=== PATIENT | male | born 1970 | race Hispanic/Latino ===

== ENCOUNTER 2016-10-23 14:50 | Inpatient (IN) | payer MEDICARE, OTHER ==
[2016-10-23] MEDS ORDERED: MORPHINE IV PRN ×2 (14:57)
[2016-10-23] MEDS ORDERED: ZOFRAN IV PRN (14:57)
[2016-10-23] MEDS ORDERED: TYLENOL PO PRN (14:57)
[2016-10-23] MEDS ORDERED: NARCAN 0.4 MG/1 ML IV PRN (14:57)
[2016-10-23 20:52] LABS: Basophils % (Auto) 0.8 % (0.0-1.8); Eosinophils % (Auto) 7.9 % (0.0-4.3); Hematocrit 32.8 % (35.5-45.6); Hemoglobin 10.8 gm/dl (11.8-15.2); Mean Corpuscular HGB Conc 33 % (32-34); Mean Corpuscular Hemoglobin 32 pg (28-32); Mean Corpuscular Volume 97 fl (84-94); Platelet Count 379 K/mm3 (140-440); Red Blood Count 3.38 M/mm3 (3.65-5.03); Red Cell Distribution Width 16.3 % (13.2-15.2); White Blood Count 9.3 K/mm3 (4.5-11.0)
[2016-10-23 21:03] LABS: INR 1.18 (0.87-1.13)
[2016-10-23 21:04] LABS: Partial Thromboplastin Time 41.2 Sec. (24.2-36.6)
[2016-10-23 21:12] LABS: BUN/Creatinine Ratio 5.41; Calcium 9.7 mg/dL (8.4-10.2); Chloride 93.7 mmol/L (98-107)
[2016-10-23] MEDS ORDERED: DILAUDID IV ONE (23:52)
[2016-10-24] MEDS: DESYREL PO SCH ×2 (00:14→21:22)
[2016-10-24] MEDS: AMBIEN PO PRN (00:14)
[2016-10-24] MEDS: FLEXERIL PO SCH ×2 (00:14→21:21)
--- NOTE | 2016-10-24 09:07 | Admit Criteria Form ---
Admission Criteria Documentation: INFECTION, THROMBOSIS, OR OTHER COMPLICATION OF INTRAVENOUS DEVICE Clinical Indications for Admission to Inpatient Care (Place 'X' for any and all applicable criteria): Admission is indicated for ANY ONE of the following (1)(2): [X ]I. Catheter-related bloodstream infection and ANY ONE of the following (3 )(4): [ ]a) Hemodynamic instability [ X]b) Metastatic infection requiring inpatient care (eg, endocarditis , septic emboli)(5) [ ]c) Patient has constitutional symptoms (eg, fever, chills), is immunocompromised, or is at increased risk for severe infection as indicated by ANY ONE of the following: [ ]i) Chronic use of immunosuppressive medication [ ]ii) Asplenic [ ]iii) Bone marrow disease [ ]iv) Extremities of age (eg, frail elderly, ) [ ]v) Severe comorbidity (eg, poorly controlled diabetes, metastatic malignancy, symptomatic heart failure) [ ]vi) Other indicator of immunocompromise [ ]d) Appropriate care cannot be provided in home or outpatient setting. [ ]II. Catheter-related thrombosis requiring systemic anticoagulation that cannot be managed on an outpatient basis(6) [ X]III. Catheter-related complication that cannot be managed on outpatient basis as indicated by ANY ONE of the following (7)(8)(9)(10): [ ]a) Thrombotic or air embolization from catheter [ ]b) Catheter fracture [ ]c) Cardiac arrhythmia due to catheter (eg, catheter tip misplacement) [ ]d) Cardiac tamponade [ ]e) Hemothorax (eg, from vascular injury) [ ]f) Tension pneumothorax [ ]g) Vascular injury from puncture requiring acute surgical or endovascular repair Extended stay beyond goal length of stay may be needed for(2): [ ]a) Persistent Hemodynamic instability [ ]b) Endocarditis [ ]c) Continued fever or bacteremia [ ]d) End-stage renal disease [ ]e) Inability to provide needed care in home environment [ ]f) Inpatient anticoagulation The original [facility] content created by Negrita Camarillo has been revised. The portions of the content which have been revised are identified through the use of italic text or in bold, and Negrita Camarillo has neither reviewed nor approved the modified material. All other unmodified content is copyright [facility] [employer]. Please see references footnoted in the original [facility] edition 2016 Admission Criteria Met: Yes
--- NOTE | 2016-10-24 09:47 | Consultation ---
History of Present Illness - History of Present Illness thank you for the consultation Patient was evaluated today Assessment and plan End-stage renal disease currently in maintenance hemodialysis; patient will receive his hemodialysis today after the procedure used a new catheter that has been placed at [facility] Patient is currently doing much better in terms of his diet and fluid restriction Noted to have bacteremia at [facility] catheter was already exchanged, he will need to be seen and followed by infectious disease as he was on ampicillin as well as gentamicin, 2 g twice a day as well as 1 mg per KG body weight after every dialysis Anemia and end-stage renal disease currently on maintenance hemodialysis Secondary hyperparathyroidism to follow, he is currently status post parathyroidectomy remotely Morbid obesityhistory I'm to do better Difficult vascular access currently clotted AV graft We'll continue to follow and make recommendation from renal standpoint history of present illness: Patient is a 45-year-old male who has known history of polycystic kidney disease for which she underwent bilateral nephrectomy currently on renal replacement therapy to his right upper chest permacath which was recently replaced at [facility] by Dr. Maldonado. Patient has also been noted to have enterococcal faecalis bacteremia. patient has a transfer dysphagia of echocardiogram which showed thrombosis in his right atrium. I did discuss the case today with Dr. Gunderson, and patient has been transferred here due to some suspicion of adherent clot at the tip of the catheter/hero graft. Patient has been placed on ampicillin 2 g twice a day as well as gentamicin 1 mg /kg body weight after each dialysis treatment discussed with Dr. perez. Patient stated overall he is feeling well and is due for dialysis. He has been watching his fluid very closely. He was admitted to [facility] with acute onset of fever and chills that started the day before his admission. At that time his permacath was nearly 2 week old which was replaced at [facility] patient currently has permacath and also MediPort. Past medical history is significant for end-stage renal disease currently on maintenance hemodialysis Chronic low-grade hypotension Secondary hyperparathyroidism status post parathyroidectomy Anemia and end-stage renal disease Chronic neuropathy Arthritis Limited vascular access allergies Keppra nalbuphine Home medication present medication: Reviewed Social history: Patient has no recent history of alcohol or tobacco use Family history:Positive for polycystic kidney disease Review of system: Positive for fever chills prior to admission permacath has been exchange patient has been noted to have enterococcal bacteremia for which she was under care of infectious disease at [facility] Complete review of the systems are pinpoint but is manageable of the review of system negative Labs and imaging all reviewed from this admission Medications and Allergies Allergies Allergy/AdvReac Type Severity Reaction Status Date / Time levetiracetam [From Keppra] Allergy Hives Verified 05/03/15 10:34 nalbuphine HCl [From Nubain] AdvReac Unknown Verified 05/03/15 10:34 Home Medications Medication Instructions Recorded Confirmed Last Taken Type oxyCODONE ER [OxyCONTIN ER TAB] 20 mg PO BID 05/03/15 09/14/16 09/20/16 22:00 History Cyclobenzaprine HCl [Flexeril] 10 mg PO QHS 06/08/15 09/14/16 09/20/16 22:00 History Calcitriol [Rocaltrol] 0.25 mcg PO QDAY #30 capsule 09/29/15 09/14/16 09/20/16 22:00 Rx Gemfibrozil [Lopid] 600 mg PO BID #60 tablet 09/29/15 09/14/16 09/20/16 22:00 Rx Gabapentin [Neurontin] 100 mg PO TID 08/16/16 09/14/16 09/20/16 22:00 History Sodium Bicarbonate 650 mg PO BID 08/22/16 09/21/16 09/20/16 09:00 History diphenhydrAMINE [Benadryl CAP] 25 mg PO BID 08/22/16 09/14/16 09/20/16 22:00 History Clopidogrel Bisulfate [Plavix] 75 mg PO DAILY 08/23/16 09/14/16 08/22/16 History Zolpidem [Ambien] 5 mg PO QHS 08/23/16 09/14/16 09/20/16 22:00 History traZODone [Desyrel] 50 mg PO QHS 08/23/16 09/14/16 09/20/16 22:00 History Pantoprazole [Protonix] 40 mg PO QDAY 09/14/16 09/14/16 09/20/16 22:00 History Pramipexole [Mirapex] 0.5 mg PO QHS 09/14/16 09/14/16 09/20/16 22:00 History oxyCODONE /ACETAMINOPHEN [Percocet 1 tab PO Q4HR #60 tab 09/23/16 Unknown Rx 5/325] Active Meds: Active Medications Acetaminophen (Tylenol) 650 mg PO Q4H PRN PRN Reason: Pain MILD(1-3)/Fever >100.5/SEPULVEDA Acetaminophen/Hydrocodone Bitart ([place] 5/325) 2 each PO Q6H PRN PRN Reason: Pain, Moderate (4-6) Cyclobenzaprine HCl (Flexeril) 10 mg PO QHS [facility] Last Admin: 10/24/16 00:14 Dose: 10 mg Morphine Sulfate (Morphine) 2 mg IV Q4H PRN PRN Reason: Pain, Moderate (4-6) Morphine Sulfate (Morphine) 4 mg IV Q4H PRN PRN Reason: Pain , Severe (7-10) Naloxone HCl (Narcan 0.4 Mg/1 Ml) 0.1 mg IV Q2MIN PRN PRN Reason: Res Rate </= 8 or 02 SAT < 92% Ondansetron HCl (Zofran) 4 mg IV Q8H PRN PRN Reason: N/V unrelieved by Reglan Trazodone HCl (Desyrel) 50 mg PO QHS [facility] Last Admin: 10/24/16 00:14 Dose: 50 mg Zolpidem Tartrate (Ambien) 5 mg PO QHS PRN PRN Reason: Sleep Last Admin: 10/24/16 00:14 Dose: 5 mg Exam - Vital Signs Vital signs: Vital Signs Temp Pulse Resp BP Pulse Ox 97.9 F 92 H 18 108/64 94 10/23/16 22:00 10/23/16 22:00 10/23/16 22:00 10/23/16 22:00 10/23/16 22:00 - General Appearance General appearance: appears stated age (no acute distress appears depressed) EENT: mucous membranes moist Neck: Present: neck supple Respiratory: Clear to Ascultation (permacath site is clear,MediPort site is clear) Heart: regular (regular rate and rhythm S1-S2 heard no S3-S4) Gastrointestinal: Present: normal (soft nontender obese abdomen) Integumentary: no rash Neurologic: no focal deficit (alert awake oriented4 chronic neuropathy both lower extremity) Psychiatric: depressed (patient appears tearful due to chronic illness denies chronic depression) Results - Lab Results 10/23/16 20:30 10/23/16 20:30 Most recent lab results Calcium 9.7 mg/dL (8.4-10.2) 10/23/16 20:30 Phosphorus 7.0 mg/dL (2.5-4.5) H 10/23/16 20:30
[2016-10-24] MEDS ORDERED: ANCEF/STERILE WATER 2 GM/20 ML IV NR (11:00)
[2016-10-24] MEDS ORDERED: NACL 0.9% 50 ML ONE (11:58)
[2016-10-24] MEDS ORDERED: HEPARIN/NS 5000 UNIT/500ML(CATH LAB) 1,000 ML IR ONE (11:59)
[2016-10-24] MEDS ORDERED: ANCEF/STERILE WATER 2 GM/20 ML 20 ML IV ONE (12:00)
[2016-10-24] MEDS ORDERED: CATHFLO ONE (12:01)
[2016-10-24] MEDS ORDERED: NACL 0.9% 250ML 250 ML ONE (12:02)
[2016-10-24] MEDS ORDERED: WATER FOR INJ (PF) 10 ML ONE (12:09)
[2016-10-24] MEDS: SUBLIMAZE ONE ×4 (12:24→13:14)
[2016-10-24] MEDS: VERSED ONE ×4 (12:24→13:48)
[2016-10-24] MEDS: HEPARIN 10,000 UNITS/10 ML ONE ×4 (12:25→15:06)
[2016-10-24] MEDS: XYLOCAINE 1%/ EPI 1:100,000 INFILTRATI ONE ×2 (12:25→12:30)
[2016-10-24] MEDS ORDERED: HEPARIN/NS 5000 UNIT/500ML(CATH LAB) 500 ML IR ONE (12:46)
[2016-10-24] MEDS ORDERED: ZOFRAN ONE (13:02)
[2016-10-24] MEDS ORDERED: LOPRESSOR IV ONE (13:05)
[2016-10-24] MEDS ORDERED: NACL 0.9% 500 ML 500 ML ONE (13:09)
--- NOTE | 2016-10-24 14:35 | Operative Report ---
Operative Report Operative Report: Date of procedure: 10/24/2016 Pre-operative diagnosis: Thrombosed left upper extremity HERO graft Post-operative diagnosis: The same Procedure name(s): 1. Placement of the arterial sheath under ultrasound guidance. 2. Placement of venous sheath under ultrasound guidance. 3. Fistulogram. 4. Left upper extremity arteriogram. 5. Infusion of tPA via power pulse. 6. Percutaneous mechanical thrombectomy using a 6 [place] AngioJet catheter. 7. [id number]-[id number] Anthony thrombectomy of the anastomosis. 8. Balloon angioplasty of the graft and the outflow component using 6 x 1 20 balloon. 9. Balloon angioplasty of the arterial anastomosis using 5 x 40 angioplasty balloon. 10. Radiologic supervision and interpretation. Surgeon: Cale Blankenship MD, RPVI Paint Formulator: None Anesthesia: Local with IV sedation. Findings 1. Thrombosed HERO left arm dialysis catheter. 2. No significant stenosis noted in the proximal and distal brachial artery or axillary artery. 3. Complete resolution of thrombosis of the graft was excellent brisk flow. Specimens: None EBL: Minimal IV fluids: KVO Urine output: None Disposition: The recovery Indications: Thrombosed left upper extremity HERO AV graft Procedure: Patient was brought to the [facility] and laid on the table in supine position. After adequate sedation was achieved patient was prepped and draped in usual sterile fashion. An area over the graft close to the arterial anastomosis was infiltrated with local lidocaine. Under ultrasound guidance the needle was inserted into the graft and a micropuncture wire was advanced into the graft with no resistance. The micropuncture sheath was placed toward the outflow component. The Ibarra wire was advanced through the micropuncture sheath and out of the outflow component. The micropuncture sheath was exchanged to a short bright tip 6 [place] sheath. The area was chosen near the outflow component and infiltrated was local lidocaine. A micropuncture needle under ultrasound guidance was inserted into the catheter toward the arterial anastomosis. The wire was advanced into the graft without resistance under fluoroscopic guidance. The micropuncture sheath was placed. Wire was exchanged to a Ibarra wire and the 6 [place] short bright tip sheath was placed toward the arterial anastomosis. The rim catheter was advanced toward the arterial anastomosis and directed toward the proximal brachial artery. The Glidewire was advanced into the proximal brachial artery and up to the axillary artery. The catheter was exchanged to a angled vertebral catheter and it was advanced up into the axillary artery. The arteriogram of the left arm showed no evidence of inflow stenosis. The entire graft then was laced with tPA using an AngioJet catheter starting from the venous sheath all way to the tip of the outflow component and then from the arterial sheath down into the arterial anastomosis. After 20 minutes the AngioJet thrombectomy was performed of the entire graft. The [id number] Anthony catheter was advanced over Ibarra wire through the arterial anastomosis and the arterial plug was withdrawn into the graft past the venous sheath. The gjzo-pky-[id number] Anthony with then was advanced through the venous sheath and pushed the arterial plug out through the outflow component. The fistulogram was performed and there was some residual clot remaining at the entrance of the arterial sheath. This was probably due to partial clot that not clear because of the sheath. The entire graft was then ballooned using a 6 x 1 20 balloon and the arterial anastomosis was ballooned using 5 x 40 balloon. It appeared there was some clot just distal to the tip of the outflow component which was successfully resolved using a 10 x 40 balloon just distal to the outflow component. The fistulogram once again showed to the graft was completely clear except for the area where the arterial sheath entered the graft. The arterial sheath was removed and the sites sutured using 4-0 Vicryl. There was no bleeding. The graft was once again ballooned using 6 x 1 20 balloon at that site. And the follow-up angiogram showed no evidence of residual clot, brisk flow all the way down and out of the outflow component and no evidence of contrast extravasation. At that point the whole graft was completely cleared and the venous sheath was removed and the site closed using 3-0 Vicryl stitch. Patient tolerated procedure well.
--- NOTE | 2016-10-24 15:15 | Vascular Lab Report ---
MISCELLANEOUS VESSEL IDENTIFICATION: The arteriovenous access was identified in the left upper extremity and under real-time ultrasound guidance was cannulated. IMPRESSION: Successful ultrasound guided cannulation of the arteriovenous access site.
[2016-10-24] MEDS: DILAUDID IV PRN ×2 (15:20→22:49)
[2016-10-24] MEDS ORDERED: NACL 0.9% 1000 ML 100 ML IV PRN ×2 (15:28→19:29)
--- NOTE | 2016-10-24 15:36 | Consultation ---
History of Present Illness - Reason for Consult Consult date: 10/24/16 mrsa bacteremia Requesting physician: NUVIA BLANKENSHIP - History of Present Illness This is a 45 year old man with polycystic kidney disease, ESRD on hemodialysis x 13 years, T12 fracture and L5-S1 disc bulging. Left arm HERO graft placed 3 weeks ago. Patient said he was doing well until the night of October 15 when he started to feel weak, tired with associated nausea and vomiting. He took his temperature that was 99.6. He went to bed and woke up at 12:45 AM with shaking chills, cold, chattering teeth with a temp of 100.5. He called 911 and was brought to [facility]. On arrival to the ER at [facility] on 10/15/16 he had blood cultures and initiated on vancomycin, levaquin and zosyn in the ER. WBC was 20.1. Blood cultures came back with Enterococcus faecalis, patient was seen by ID, Dr. Gunderson. Vancomycin was continued awaiting final culture results. He was then switched to ampicillin 2gm iv Q12H on 10/17/16. Blood cultures were positive on . Echocardiogram was done on 10/19/16, technically difficult leading to a ARLENE. The right chest wall permacath was considered as the source of the bacteremia, it was then changed over guide wire on 10/21/16. ARLENE was done on 10/23/16 with a large mobile mass noted in the superior aspect of the atrium close to the septum. Patient was transferred to [facility]. Dr. Blankenship performed a fistulogram, infusion of tPA, percutaneous mechanical thrombectomy, balloon angioplasty of the graft and out flow component. Past History Past Medical History: ESRD, hypertension, other (polycystic kidney disease) Past Surgical History: Other (cervical spine hardware, neurostimulator device) Social history: . denies: smoking, alcohol abuse Medications and Allergies Allergies Allergy/AdvReac Type Severity Reaction Status Date / Time levetiracetam [From Keppra] Allergy Hives Verified 05/03/15 10:34 nalbuphine HCl [From Nubain] AdvReac Unknown Verified 05/03/15 10:34 Home Medications Medication Instructions Recorded Confirmed Last Taken Type oxyCODONE ER [OxyCONTIN ER TAB] 20 mg PO BID 07/09/14/16 09/20/16 22:00 History Cyclobenzaprine HCl [Flexeril] 10 mg PO QHS 06/08/15 09/14/16 09/20/16 22:00 History Calcitriol [Rocaltrol] 0.25 mcg PO QDAY #30 capsule 09/29/15 09/14/16 09/20/16 22:00 Rx Gemfibrozil [Lopid] 600 mg PO BID #60 tablet 09/29/15 09/14/16 09/20/16 22:00 Rx Gabapentin [Neurontin] 100 mg PO TID 08/16/16 09/14/16 09/20/16 22:00 History Sodium Bicarbonate 650 mg PO BID 08/22/16 09/21/16 09/20/16 09:00 History diphenhydrAMINE [Benadryl CAP] 25 mg PO BID 08/22/16 09/14/16 09/20/16 22:00 History Clopidogrel Bisulfate [Plavix] 75 mg PO DAILY 08/23/16 09/14/16 08/22/16 History Zolpidem [Ambien] 5 mg PO QHS 08/23/16 09/14/16 09/20/16 22:00 History traZODone [Desyrel] 50 mg PO QHS 08/23/16 09/14/16 09/20/16 22:00 History Pantoprazole [Protonix] 40 mg PO QDAY 09/14/16 09/14/16 09/20/16 22:00 History Pramipexole [Mirapex] 0.5 mg PO QHS 09/14/16 09/14/16 09/20/16 22:00 History oxyCODONE /ACETAMINOPHEN [Percocet 1 tab PO Q4HR #60 tab 09/23/16 Unknown Rx 5/325] Active Meds: Active Medications Acetaminophen (Tylenol) 650 mg PO Q4H PRN PRN Reason: Pain MILD(1-3)/Fever >100.5/SEPULVEDA Acetaminophen/Hydrocodone Bitart ([place] 5/325) 2 each PO Q6H PRN PRN Reason: Pain, Moderate (4-6) Cefazolin Sodium (Ancef/Sterile Water 2 Gm/20 Ml) 2 gm IV PREOP NR Stop: 10/24/16 23:59 Cyclobenzaprine HCl (Flexeril) 10 mg PO QHS [facility] Last Admin: 10/24/16 00:14 Dose: 10 mg Hydromorphone HCl (Dilaudid) 2 mg IV Q6HR PRN PRN Reason: Pain , Severe (7-10) Last Admin: 10/24/16 15:20 Dose: 2 mg Sodium Chloride (Nacl 0.9% 1000 Ml) 100 mls @ 999 mls/hr IV JOSE PRN PRN Reason: Hypotension Naloxone HCl (Narcan 0.4 Mg/1 Ml) 0.1 mg IV Q2MIN PRN PRN Reason: Res Rate </= 8 or 02 SAT < 92% Ondansetron HCl (Zofran) 4 mg IV Q8H PRN PRN Reason: N/V unrelieved by Reglan Trazodone HCl (Desyrel) 50 mg PO QHS [facility] Last Admin: 10/24/16 00:14 Dose: 50 mg Zolpidem Tartrate (Ambien) 5 mg PO QHS PRN PRN Reason: Sleep Last Admin: 10/24/16 00:14 Dose: 5 mg Review of Systems Constitutional: no weight loss, no fever, no chills, no sweats, no fatigue, no weakness Ears, nose, mouth and throat: no ear pain, no ear discharge, no nose pain, no nasal congestion, no dysphagia, no hoarseness Cardiovascular: no orthopnea, no palpitations, no shortness of breath, no dyspnea on exertion Respiratory: no excessive sputum, no wheezing, no pleurisy Gastrointestinal: no nausea, no vomiting, no diarrhea, no melena Genitourinary Male: no hematuria, no flank pain, no discharge, no genital pain Rectal: no incontinence, no hemorrhoids Musculoskeletal: no neck pain, no shooting arm pain, no low back pain, no morning stiffness Integumentary: no rash, no pruritis, no bullae, no lesions Neurological: no weakness, no parathesias, no numbness, no migraines, no convulsions Psychiatric: no change in sleep habits, no sleep disturbances, no insomnia, no disorientation, no hallucinations Endocrine: no heat intolerance, no polyphagia, no excessive thirst, no weight change Physical Examination - Constitutional Vitals: Selected Entries 10/24/16 07:47 Temperature 97.6 F Pulse Rate [ 87 Left Radial] Respiratory 16 Rate O2 Sat by Pulse 98 Oximetry Blood Pressure 95/56 [Left Thigh] Blood Pressure 69 Mean [Left Thigh] General appearance: Present: no acute distress, well-nourished, obese - EENT Eyes: Present: PERRL, EOM intact. Absent: scleral icterus, conjunctival injection ENT: hearing intact, clear oral mucosa, dentition normal, no oropharyngeal erythema - Neck Neck: Present: supple, normal ROM. Absent: enlarged thyroid, masses or JVD - Respiratory Respiratory: bilateral: CTA - Cardiovascular Rhythm: regular Heart Sounds: Present: S1 & S2 - Extremities Extremities: no ischemia, pulses intact, normal temperature - Abdominal General gastrointestinal: Present: soft, non-tender, normal bowel sounds Male genitourinary: Present: deferred - Rectal Rectal Exam: deferred - Integumentary Integumentary: Present: clear, warm, dry. Absent: jaundice, rash - Musculoskeletal Musculoskeletal: strength equal bilaterally - Psychiatric Psychiatric: appropriate mood/affect, cooperative Results - Labs CBC & Chem 7: 10/23/16 20:30 10/23/16 20:30 Labs: Laboratory Tests 10/23/16 10/23/16 10/23/16 20:30 20:30 20:30 WBC 9.3 Plt Count 379 INR 1.18 H APTT 41.2 H BUN 52 H Creatinine 9.6 H Assessment and Plan Antibiotics: 1) cefazolin preop 10/24 This is a 45 year old man with ESRD (polycystic kidney disease), left arm HERO graft placed 2 weeks ago, left chest wall power port, and right chest wall permacath. He presented to [facility] on 10/15/16 with shaking chills and fevers and found to have Enterococcus faecalis bacteremia with positive blood cultures on 10/15, 10/16 and 10/17. Blood cultures on 10/18, 10/19 negative. ARLENE with mobile mass in the right atrium thought to be related to catheter. He did have the right chest wall permacath changed over a guide wire on 10/21/16. Patient was transferred to have the HERO cath declotted, he underwent angioplasty and thrombectomy by Dr. Blankenship on 10/24/16. 1) High grade Enterococcus faecalis bacteremia that is thought to be related to an infected permacath that was exchanged on 10/21/16. Concerned about the mobile density revealed by ARLENE that was thought to be related to the cathete 2) leukocytosis, resolved initially 20.1 3) history of Enterococcus bacteremia in 05/2015 treated with 4 weeks of iv ampicillin 4) History of MRSA colonization Plan: 1) continue ampicillin as previously prescribed at [facility] 2) repeat blood culture 3) will need to see blood culture results to confirm sensitivities 4) will repeat ARLENE to evaluate the mobile right atrium density 5) would treat as endovascualar infection in view of cervical spine hardware and the HERO graft in place.
--- NOTE | 2016-10-24 18:28 | Consultation ---
History of Present Illness - Reason for Consult Consult date: 10/24/16 Requesting physician: NUVIA HERRING - History of Present Illness Mr. Bailey is a 45 yo M who was admitted to the vascular team Thrombosed HERO left arm dialysis catheter. He had vascular procedure this morning for thrombosed HERO dialysis catheter; he was transferred from [place] for further treatment of thrombosis; he as admiited to [place] On 10/15/16 he had blood cultures and initiated on vancomycin, levaquin and zosyn in the ER. WBC was 20.1. Blood cultures came back with Enterococcus faecalis, patient was seen by ID, Dr. Gunderson. Vancomycin was continued awaiting final culture results. He was then switched to ampicillin 2gm iv Q12H on 10/17/16. Blood cultures were positive on . Echocardiogram was done on 10/19/16, technically difficult leading to a ARLENE. The right chest wall permacath was considered as the source of the bacteremia, it was then changed over guide wire on 10/21/16. ARLENE was done on 10/23/16 with a large mobile mass noted in the superior aspect of the atrium close to the septum. At the time of evaluation he had no complaints Past History Past Medical History: ESRD, hypertension, other (polycystic kidney disease) Past Surgical History: Other (cervical spine hardware, neurostimulator device) Social history: . denies: smoking, alcohol abuse Medications and Allergies Allergies Allergy/AdvReac Type Severity Reaction Status Date / Time levetiracetam [From Keppra] Allergy Hives Verified 05/03/15 10:34 nalbuphine HCl [From Nubain] AdvReac Unknown Verified 05/03/15 10:34 Home Medications Medication Instructions Recorded Confirmed Last Taken Type oxyCODONE ER [OxyCONTIN ER TAB] 20 mg PO BID 05/03/15 09/14/16 09/20/16 22:00 History Cyclobenzaprine HCl [Flexeril] 10 mg PO QHS 06/08/15 09/14/16 09/20/16 22:00 History Calcitriol [Rocaltrol] 0.25 mcg PO QDAY #30 capsule 09/29/15 09/14/16 09/20/16 22:00 Rx Gemfibrozil [Lopid] 600 mg PO BID #60 tablet 09/29/15 09/14/16 09/20/16 22:00 Rx Gabapentin [Neurontin] 100 mg PO TID 08/16/16 09/14/16 09/20/16 22:00 History Sodium Bicarbonate 650 mg PO BID 08/22/16 09/21/16 09/20/16 09:00 History diphenhydrAMINE [Benadryl CAP] 25 mg PO BID 08/22/16 09/14/16 09/20/16 22:00 History Clopidogrel Bisulfate [Plavix] 75 mg PO DAILY 08/23/16 09/14/16 08/22/16 History Zolpidem [Ambien] 5 mg PO QHS 08/23/16 09/14/16 09/20/16 22:00 History traZODone [Desyrel] 50 mg PO QHS 08/23/16 09/14/16 09/20/16 22:00 History Pantoprazole [Protonix] 40 mg PO QDAY 09/14/16 09/14/16 09/20/16 22:00 History Pramipexole [Mirapex] 0.5 mg PO QHS 09/14/16 09/14/16 09/20/16 22:00 History oxyCODONE /ACETAMINOPHEN [Percocet 1 tab PO Q4HR #60 tab 09/23/16 Unknown Rx 5/325] Active Meds: Active Medications Acetaminophen (Tylenol) 650 mg PO Q4H PRN PRN Reason: Pain MILD(1-3)/Fever >100.5/SEPULVEDA Acetaminophen/Hydrocodone Bitart ([place] 5/325) 2 each PO Q6H PRN PRN Reason: Pain, Moderate (4-6) Cefazolin Sodium (Ancef/Sterile Water 2 Gm/20 Ml) 2 gm IV PREOP NR Stop: 10/24/16 23:59 Cyclobenzaprine HCl (Flexeril) 10 mg PO QHS [facility] Last Admin: 10/24/16 00:14 Dose: 10 mg Hydromorphone HCl (Dilaudid) 2 mg IV Q6HR PRN PRN Reason: Pain , Severe (7-10) Last Admin: 10/24/16 15:20 Dose: 2 mg Sodium Chloride (Nacl 0.9% 1000 Ml) 100 mls @ 999 mls/hr IV JOSE PRN PRN Reason: Hypotension Ampicillin Sodium (Polycillin/Ns 2 Gm/100 Ml) 100 mls @ 100 mls/hr IV Q12H [facility] Stop: 10/28/16 06:59 Naloxone HCl (Narcan 0.4 Mg/1 Ml) 0.1 mg IV Q2MIN PRN PRN Reason: Res Rate </= 8 or 02 SAT < 92% Ondansetron HCl (Zofran) 4 mg IV Q8H PRN PRN Reason: N/V unrelieved by Reglan Trazodone HCl (Desyrel) 50 mg PO QHS [facility] Last Admin: 10/24/16 00:14 Dose: 50 mg Zolpidem Tartrate (Ambien) 5 mg PO QHS PRN PRN Reason: Sleep Last Admin: 10/24/16 00:14 Dose: 5 mg Review of Systems All systems: negative Constitutional: no weight loss, no weight gain, no fever Ears, nose, mouth and throat: no ear pain, no ear discharge, no tinnitis, no decreased hearing Cardiovascular: no chest pain, no orthopnea, no palpitations, no rapid/ irregular heart beat Respiratory: no cough, no cough with sputum, no excessive sputum, no hemoptysis , no shortness of breath Gastrointestinal: no nausea, no vomiting, no diarrhea, no constipation Genitourinary Male: no dysuria, no hematuria, no flank pain Rectal: no pain, no incontinence Musculoskeletal: no neck stiffness, no neck pain, no shooting arm pain Integumentary: no rash, no pruritis, no redness, no sores, no wounds Neurological: no head injury, no transient paralysis, no paralysis, no weakness Psychiatric: no anxiety, no memory loss, no change in sleep habits, no sleep disturbances Endocrine: no cold intolerance, no heat intolerance, no polyphagia, no excessive thirst Hematologic/Lymphatic: no easy bruising, no easy bleeding Allergic/Immunologic: no urticaria, no allergic rhinitis Exam - Constitutional Vitals: Temp Pulse Resp BP Pulse Ox 97.8 F 92 H 20 118/51 98 10/24/16 16:30 10/24/16 17:45 10/24/16 16:30 10/24/16 17:45 10/24/16 15:05 General appearance: Present: no acute distress, obese - EENT Eyes: Present: PERRL, EOM intact. Absent: scleral icterus, conjunctival injection ENT: hearing intact, clear oral mucosa, no oropharyngeal erythema, no poor dentition - Neck Neck: Present: supple, normal ROM. Absent: enlarged thyroid, masses or JVD - Respiratory Respiratory effort: normal Respiratory: negative: diminished, rales, rhonchi, wheezing - Cardiovascular Rhythm: regular Heart Sounds: Present: S1 & S2. Absent: gallop - Extremities Extremities: no ischemia, pulses intact, pulses symmetrical, No edema Peripheral Pulses: within normal limits - Abdominal General gastrointestinal: Present: soft, non-tender, non-distended, normal bowel sounds Male genitourinary: Present: deferred - Rectal Rectal Exam: deferred - Integumentary Integumentary: Present: clear - Musculoskeletal Musculoskeletal: generalized weakness - Psychiatric Psychiatric: appropriate mood/affect, intact judgment & insight, cooperative - Neurologic Neurologic: CNII-XII intact, moves all extremities Results - Labs CBC & Chem 7: 10/23/16 20:30 10/23/16 20:30 Labs: Abnormal lab results 10/23/16 10/23/16 10/23/16 Range/Units 20:30 20:30 20:30 RBC 3.38 L (3.65-5.03) M/mm3 Hgb 10.8 L (11.8-15.2) gm/dl Hct 32.8 L (35.5-45.6) % MCV 97 H (84-94) fl RDW 16.3 H (13.2-15.2) % Eos % (Auto) 7.9 H (0.0-4.3) % Eos # 0.7 H (0.0-0.4) K/mm3 Seg Neutrophils % 71.3 H (40.0-70.0) % INR 1.18 H (0.87-1.13) APTT 41.2 H (24.2-36.6) Sec. Chloride 93.7 L (98-107) mmol/L BUN 52 H (9-20) mg/dL Creatinine 9.6 H (0.8-1.5) mg/dL Phosphorus (2.5-4.5) mg/dL 10/23/16 Range/Units 20:30 RBC (3.65-5.03) M/mm3 Hgb (11.8-15.2) gm/dl Hct (35.5-45.6) % MCV (84-94) fl RDW (13.2-15.2) % Eos % (Auto) (0.0-4.3) % Eos # (0.0-0.4) K/mm3 Seg Neutrophils % (40.0-70.0) % INR (0.87-1.13) APTT (24.2-36.6) Sec. Chloride (98-107) mmol/L BUN (9-20) mg/dL Creatinine (0.8-1.5) mg/dL Phosphorus 7.0 H (2.5-4.5) mg/dL Assessment and Plan 1. Polycytic Kidney with ESRD - had HD today; manx as per renal 2. THromboses hero catheter- Manx as per primary team 3. Recent bactremia and endocarditis- manx as per ID 4. Anemia due to CKD- manx as per renal 5. Debility - recommend PT eval 6. DVT prophylaxis as per primary team Thanks for the consult; no further recommendations at this time; will sign off; call as needed
[2016-10-24] MEDS ORDERED: HEPARIN ONE (19:18)
[2016-10-24] MEDS ORDERED: NACL 0.9 (PRIMING MACHINE ONLY DIALYSIS) MC ONE (19:20)
[2016-10-24] MEDS ORDERED: HEPARIN IV PRN (19:29)
[2016-10-24] MEDS: POLYCILLIN/NS 2 GM/100 ML 100 ML IV SCH (21:21)
[2016-10-24] MEDS ORDERED: FLEXERIL PO SCH (22:00)
[2016-10-24] MEDS ORDERED: DESYREL PO SCH (22:00)
[2016-10-25] MEDS: DILAUDID IV PRN ×4 (05:20→23:36)
[2016-10-25] MEDS: POLYCILLIN/NS 2 GM/100 ML 100 ML IV SCH ×2 (05:20→18:26)
--- NOTE | 2016-10-25 09:49 | Progress Note ---
Assessment and Plan Antibiotics: 1) ampicillin 2gm iv Q12H (10/17 Previous Antibiotics: 1) cefazolin preop 10/24 2) vancomycin (10/15-10/17 3) zosyn (10/15-10/16 4) levaquin (10/15-10/16 This is a 45 year old man with ESRD (polycystic kidney disease), left arm HERO graft placed 2 weeks ago, left chest wall power port, and right chest wall permacath. He presented to [facility] on 10/15/16 with shaking chills and fevers and found to have Enterococcus faecalis bacteremia with positive blood cultures on 10/15, 10/16 and 10/17. Blood cultures on 10/18, 10/19 negative. ARLENE with mobile mass in the right atrium thought to be related to catheter. He did have the right chest wall permacath changed over a guide wire on 10/21/16. Patient was transferred to have the HERO cath declotted, he underwent angioplasty and thrombectomy by Dr. Blankenship on 10/24/16. 1) High grade Enterococcus faecalis bacteremia that is thought to be related to an infected permacath that was exchanged on 10/21/16. Concerned about the mobile density revealed by ARLENE that was thought to be related to the catheter. --await blood culture results from [facility] --will treat for endovascular infection in view of the multiple catheters and hardware patient has in place including the HERO graft. 2) leukocytosis, resolved initially 20.1 3) history of Enterococcus bacteremia in 05/2015 treated with 4 weeks of iv ampicillin 4) History of MRSA colonization 5) HERO graft thrombus s/p angioplasty on 10/24/16 Plan: 1) continue ampicillin anticipate giving 6 weeks total 2) repeat blood culture pending 3) will need to see blood culture results to confirm sensitivities, await [place] lab results 4) will repeat ARLENE to evaluate the mobile right atrium density 5) would treat as endovascular infection in view of cervical spine hardware and the HERO graft in place. Subjective Date of service: 10/25/16 Principal diagnosis: enterococcus bacteremia Interval history: Patient with no new complaints. He does not have shortness of breath Objective - Constitutional Vitals: Vital Signs Temp Pulse Resp BP Pulse Ox 97.8 F 87 18 109/61 98 10/25/16 07:57 10/25/16 07:57 10/25/16 07:57 10/25/16 07:57 10/25/16 07:57 Temperature -Last 24 Hours Temperature 97.8 F Temperature 98.1 F Temperature 97.5 F Temperature 97.8 F Temperature 98.2 F General appearance: Present: no acute distress, well-nourished, obese - EENT Eyes: PERRL, EOM intact, no scleral icterus, no conjunctival injection ENT: hearing intact, clear oral mucosa, edentulous (upper) - Neck Neck: supple, normal ROM, no enlarged thyroid, no masses or JVD - Respiratory Respiratory: bilateral: CTA - Breasts Breasts: deferred - Cardiovascular Rhythm: regular Heart Sounds: Present: S1 & S2 Extremities: no ischemia, No edema, abnormal (hyperpigmented changes) - Gastrointestinal General gastrointestinal: Present: soft, non-tender, normal bowel sounds Rectal Exam: deferred - Genitourinary Male genitourinary: deferred - Integumentary Integumentary: clear, warm, dry, no jaundice, no rash - Labs CBC & Chem 7: 10/23/16 20:30 10/23/16 20:30
--- NOTE | 2016-10-25 13:11 | Progress Note ---
Assessment and Plan end-stage renal disease currently in maintenance hemodialysis Patient will dialyze here on Sunday schedule Yesterday he was supposed to get his graft cannulated which is currently working wellBut graft was not used Vascular surgery needs to demarcated areaon the graft where cannulation can be done Patient currently has a permacath present in the right upper chest as a backup Enterococcal faecalis bacteremia currently being followed by infectious disease Current dialysis access is a central venous catheter as well as a hero graft patient does remotely have history of pulmonary embolism and was taking Coumadin due to recent issues with clotting I would, recommend that she should be seen by hematology ? Is he a candidate for Coumadin therapy to maintain graft patency I'll leave this to vascular surgery Hemodialysis tomorrow morning ultrafiltrate as tolerated patient is doing much better with fluid gains will target the goal to be about 1-2 kg Subjective Principal diagnosis: enterococcus bacteremia Interval history: seen today for follow-up doing much better No complaints of any fever or chills Patient was dialyzed yesterday we using the central venous catheter Dialysis nurse could not access his hero graft which is currently working well events of 24 hours vitals labs intake output medications were reviewed Case was also discussed with Dr. Blankenship Remotely patient does have history of pulmonary embolism for which she was taking anticoagulation and one point but currently on none Objective - Vital Signs Vital signs: Vital Signs - 12hr 10/25/16 10/25/16 10/25/16 05:20 05:50 07:57 Temperature 97.8 F Pulse Rate [ 87 Left Radial] Respiratory 18 18 18 Rate Blood Pressure 109/61 [Left Thigh] O2 Sat by Pulse 98 Oximetry - General Appearance General appearance: appears stated age EENT: mucous membranes moist Neck: no JVD Respiratory: Present: Clear to Ascultation (has a central venous catheter on the right Mediport on the left, some erythema around the catheter site on the right side patient say that he has been itching) Gastrointestinal: normal (obese abdomen) Psychiatric: mood/affect appropriate - Lab 10/23/16 20:30 10/23/16 20:30 Most recent lab results Calcium 9.7 mg/dL (8.4-10.2) 10/23/16 20:30 Phosphorus 7.0 mg/dL (2.5-4.5) H 10/23/16 20:30
--- NOTE | 2016-10-25 16:07 | History and Physical Report ---
History of Present Illness Date of examination: 10/23/16 Date of admission: 10/23/16 19:23 History of present illness: (Late entry) This patient is a 45-year-old male that was transferred from [facility] to [facility] on 10/23/2016. He is well-known to our service. He is status post multiple vascular and hemodialysis procedures in the past. The most recent of which was on 2015 where a left external jugular vein HERO graft was placed. 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 Approximately 10 days ago he became weak and initiated EMS. He was transported to the [facility] where he was admitted. He was reportedly found to be bacteremic with an enterococcus faecalis. He has a right chest permacath, a left chest [id number], and the above stated left upper extremity hero graft. He was started on intravenous antibiotics. A ARLENE was performed with reports of "vegetation" seen on the distal tip of one of his catheters. His permacath was exchanged over the wire. His hero graft had previously thrombosed. With concerns about inability to successfully declot the hero graft, our service was contacted, and arrangements were completed for the patient to be transferred to [facility]. Past History Past Medical History: dialysis, ESRD, hypertension, other (polycystic kidney disease) Past Surgical History: Other (cervical spine hardware, neurostimulator device, multiple previous long-term hemodialysis in both upper extremities. He's had multiple temporary hemodialysis catheter placement. He has a left sided chest [id number]. He's had a revascularization to his right upper extremity due to digital ischemia. He had debridement and a patient of the distal tip of his right index finger) Social history: . denies: smoking, alcohol abuse Family history: no significant family history Medications and Allergies Allergies Allergy/AdvReac Type Severity Reaction Status Date / Time levetiracetam [From Keppra] Allergy Hives Verified 05/03/15 10:34 nalbuphine HCl [From Nubain] AdvReac Unknown Verified 05/03/15 10:34 Home Medications Medication Instructions Recorded Confirmed Last Taken Type oxyCODONE ER [OxyCONTIN ER TAB] 20 mg PO BID 05/03/15 09/14/16 10/23/16 10:00 History 20mg Cyclobenzaprine HCl [Flexeril] 10 mg PO QHS 06/08/15 09/14/16 10/23/16 22:00 History 10mg Calcitriol [Rocaltrol] 0.25 mcg PO QDAY #30 capsule 09/29/15 09/14/16 10/23/16 10:00 Rx Gemfibrozil [Lopid] 600 mg PO BID #60 tablet 09/29/15 09/14/16 10/23/16 10:00 Rx 600mg Gabapentin [Neurontin] 100 mg PO TID 08/16/16 09/14/16 10/23/16 14:00 History 100mg Sodium Bicarbonate 650 mg PO BID 08/22/16 09/21/16 10/23/16 10:00 History 650mg diphenhydrAMINE [Benadryl CAP] 50 mg PO BID 08/22/16 09/14/16 10/23/16 10:00 History 50mg Zolpidem [Ambien] 5 mg PO QHS 08/23/16 09/14/16 10/23/16 22:00 History 5mg traZODone [Desyrel] 50 mg PO QHS 08/23/16 09/14/16 10/23/16 23:55 History 50mg Pantoprazole [Protonix] 40 mg PO QDAY 09/14/16 09/14/16 10/22/16 10:00 History 40mg Pramipexole [Mirapex] 0.5 mg PO QHS 09/14/16 09/14/16 10/22/16 22:00 History 0.5mg Active Meds: Active Medications Acetaminophen (Tylenol) 650 mg PO Q4H PRN PRN Reason: Pain MILD(1-3)/Fever >100.5/SEPULVEDA Acetaminophen/Hydrocodone Bitart ([place] 5/325) 2 each PO Q6H PRN PRN Reason: Pain, Moderate (4-6) Cyclobenzaprine HCl (Flexeril) 10 mg PO QHS [facility] Last Admin: 10/24/16 21:21 Dose: 10 mg Heparin Sodium (Porcine) (Heparin) 5,000 unit IV JOSE PRN PRN Reason: hemodialysis Hydromorphone HCl (Dilaudid) 2 mg IV Q6HR PRN PRN Reason: Pain , Severe (7-10) Last Admin: 10/25/16 12:02 Dose: 2 mg Sodium Chloride (Nacl 0.9% 1000 Ml) 100 mls @ 999 mls/hr IV JOSE PRN PRN Reason: Hypotension Ampicillin Sodium (Polycillin/Ns 2 Gm/100 Ml) 100 mls @ 100 mls/hr IV Q12H [facility] Stop: 10/28/16 06:59 Last Admin: 10/25/16 05:20 Dose: 100 mls/hr Sodium Chloride (Nacl 0.9% 1000 Ml) 100 mls @ 999 mls/hr IV JOSE PRN PRN Reason: Hypotension Naloxone HCl (Narcan 0.4 Mg/1 Ml) 0.1 mg IV Q2MIN PRN PRN Reason: Res Rate </= 8 or 02 SAT < 92% Ondansetron HCl (Zofran) 4 mg IV Q8H PRN PRN Reason: N/V unrelieved by Reglan Trazodone HCl (Desyrel) 50 mg PO QHS [facility] Last Admin: 10/24/16 21:22 Dose: 50 mg Zolpidem Tartrate (Ambien) 5 mg PO QHS PRN PRN Reason: Sleep Last Admin: 10/24/16 00:14 Dose: 5 mg Review of Systems All systems: negative Exam - Constitutional Vitals: Temp Pulse Resp BP Pulse Ox 97.9 F 107 H 18 122/71 95 10/25/16 14:56 10/25/16 14:56 10/25/16 14:56 10/25/16 14:56 10/25/16 14:56 General appearance: Present: no acute distress - EENT Eyes: Present: EOM intact ENT: hearing intact - Neck Neck: Present: supple (he has a right chest permacath, this is lateral to the previous exit site. He has an [id number] over his left shoulder.) - Respiratory Respiratory effort: normal - Extremities Extremities: abnormal (left upper extremity hero graft which did not have a thrill, there is no erythema appreciated) - Psychiatric Psychiatric: appropriate mood/affect, intact judgment & insight, cooperative - Neurologic Neurologic: no focal deficits Results - Labs CBC & Chem 7: 10/23/16 20:30 10/23/16 20:30 Assessment and Plan This patient was transferred from [facility] to [facility] with a thrombosed left upper extremity AV graft and an inability to adequately care for this patient at the previous facility. He presents to this facility with a known bacteremia. He was started on antibiotics at the previous facility. Infectious disease has been consulted, as well as nephrology has been consulted, and the hospitalist service . We'll attempt to the declot his AV graft in the cardiac catheterization suite. Suspect that the "vegetation" that was seen on a previous echocardiogram was likely a fibrin sheath. Continued antibiotics as per the recommendation of the infectious disease service. - Patient Problems (1) Hemodialysis graft malfunction Current Visit: Yes Status: Acute (2) Bacteremia Current Visit: Yes Status: Acute
--- NOTE | 2016-10-25 16:32 | Progress Note ---
Assessment and Plan ID notes reviewed. Patient will need repeat ARLENE. Await blood culture results. Antibiotics per ID recommendations. Dialysis nurse to access AV graft with next dialysis treatment. Discharge once appropriate antibiotic treatment options determined. Discussed with the patient. - Patient Problems (1) Hemodialysis graft malfunction Current Visit: Yes Status: Acute (2) Bacteremia Current Visit: Yes Status: Acute Subjective Date of service: 10/25/16 Principal diagnosis: enterococcus bacteremia Interval history: Patient was awake without specific complaint at present. Objective - Constitutional Vitals: Vital Signs - 12hr 10/25/16 10/25/16 10/25/16 05:20 05:50 07:57 Temperature 97.8 F Pulse Rate [ 87 Left Radial] Respiratory 18 18 18 Rate Blood Pressure 109/61 [Left Thigh] O2 Sat by Pulse 98 Oximetry 10/25/16 10/25/16 10:00 14:56 Temperature 97.9 F Pulse Rate [ 107 H Left Radial] Respiratory 18 18 Rate Blood Pressure 122/71 [Left Thigh] O2 Sat by Pulse 98 95 Oximetry General appearance: Present: no acute distress - EENT Eyes: EOM intact ENT: hearing intact - Neck Neck: other (right sided permacath, left sided [id number]) - Respiratory Respiratory effort: normal Extremities: abnormal (left upper extremity AV graft with all audible Doppler signal) - Neurologic Neurologic: no focal deficits - Psychiatric Psychiatric: appropriate mood/affect, intact judgment & insight, cooperative - Labs CBC & Chem 7: 10/23/16 20:30 10/23/16 20:30
[2016-10-25] MEDS: DESYREL PO SCH (21:56)
[2016-10-25] MEDS: FLEXERIL PO SCH (21:56)
[2016-10-25] MEDS: AMBIEN PO PRN (23:35)
[2016-10-25] MEDS: BENADRYL PO PRN (23:39)
[2016-10-26] MEDS: POLYCILLIN/NS 2 GM/100 ML 100 ML IV SCH ×2 (05:34→18:57)
[2016-10-26] MEDS: BENADRYL PO PRN ×2 (05:35→11:27)
[2016-10-26] MEDS: DILAUDID IV PRN ×4 (05:36→23:21)
--- NOTE | 2016-10-26 09:59 | Progress Note ---
Assessment and Plan End-stage renal disease patient is currently in the intensive dialysis on Sunday schedule According to vascular surgery we would like to use his needle cinda today if accessible Monitor dialysis related labs Maintain high-protein diet patient will benefit from nutrition evaluation We'll continue to follow and make recommendation from renal standpoint Erythropoietin with hemodialysis, ordered for 10,000 with each treatment Enterococcal bacteremia currently followed by infectious disease Subjective Principal diagnosis: enterococcus bacteremia Interval history: patient was seen for follow-up on multiple renal related issues currently has no acute complaints We will be going for dialysis today Events of 24 hours vitals labs intake output and medications were reviewed Objective - Vital Signs Vital signs: Vital Signs - 12hr 10/25/16 10/25/16 10/26/16 22:00 23:36 05:36 Temperature 97.8 F Pulse Rate [ 98 H Left Radial] Respiratory 20 20 18 Rate Blood Pressure 126/71 [Left Thigh] O2 Sat by Pulse 97 Oximetry 10/26/16 08:10 Temperature 97.4 F L Pulse Rate [ 82 Left Radial] Respiratory Rate Blood Pressure 115/58 [Left Thigh] O2 Sat by Pulse 100 Oximetry - General Appearance General appearance: appears stated age EENT: mucous membranes moist Neck: no JVD Respiratory: Present: Clear to Ascultation (no crackles or wheezes) Cardiology: regular (S1-S2 normal) Gastrointestinal: normal (soft obese nontender) - Lab 10/23/16 20:30 10/23/16 20:30 Most recent lab results Calcium 9.7 mg/dL (8.4-10.2) 10/23/16 20:30 Phosphorus 7.0 mg/dL (2.5-4.5) H 10/23/16 20:30
--- NOTE | 2016-10-26 10:45 | Progress Note ---
Assessment and Plan Antibiotics: 1) ampicillin 2gm iv Q12H (10/17 Previous Antibiotics: 1) cefazolin preop 10/24 2) vancomycin (10/15-10/17 3) zosyn (10/15-10/16 4) levaquin (10/15-10/16 This is a 45 year old man with ESRD (polycystic kidney disease), left arm HERO graft placed 2 weeks ago, left chest wall power port, and right chest wall permacath. He presented to [facility] on 10/15/16 with shaking chills and fevers and found to have Enterococcus faecalis bacteremia with positive blood cultures on 10/15, 10/16 and 10/17. Blood cultures on 10/18, 10/19 negative. ARLENE with mobile mass in the right atrium thought to be related to catheter. He did have the right chest wall permacath changed over a guide wire on 10/21/16. Patient was transferred to have the HERO cath declotted, he underwent angioplasty and thrombectomy by Dr. Blankenship on 10/24/16. 1) High grade Enterococcus faecalis bacteremia that is thought to be related to an infected permacath that was exchanged on 10/21/16. Concerned about the mobile density revealed by ARLENE that was thought to be related to the catheter. --await blood culture results from [facility] --will treat for endovascular infection in view of the multiple catheters and cervical spine hardware and HERO graft. 2) leukocytosis, resolved initially 20.1 3) history of Enterococcus bacteremia in 05/2015 treated with 4 weeks of iv ampicillin 4) History of MRSA colonization 5) HERO graft thrombus s/p angioplasty on 10/24/16 Plan: 1) continue ampicillin anticipate giving 6 weeks total 2) repeat blood culture negative 3) will need to see blood culture results to confirm sensitivities, await [place] lab results 4) will repeat ARLENE to evaluate the mobile right atrium mass 5) would treat as endovascular infection in view of cervical spine hardware and the HERO graft in place. Subjective Date of service: 10/26/16 Principal diagnosis: enterococcus bacteremia Interval history: Patient seen in hemodialysis center, no new complaints. Objective - Constitutional Vitals: Selected Entries 10/25/16 10/26/16 07:57 08:10 Temperature 97.8 F 97.4 F L Pulse Rate [ 87 82 Left Radial] Respiratory 18 Rate O2 Sat by Pulse 98 100 Oximetry Blood Pressure 109/61 115/58 [Left Thigh] Blood Pressure 77 77 Mean [Left Thigh] General appearance: Present: no acute distress, well-nourished, obese - EENT Eyes: PERRL, EOM intact, no scleral icterus, no conjunctival injection ENT: hearing intact, clear oral mucosa Ears: bilateral: normal - Neck Neck: supple, normal ROM, no enlarged thyroid, no masses or JVD - Respiratory Respiratory: bilateral: CTA - Breasts Breasts: deferred - Cardiovascular Rhythm: regular Heart Sounds: Present: S1 & S2 Extremities: no ischemia, abnormal (left arm HERO graft) - Gastrointestinal General gastrointestinal: Present: soft, non-tender, normal bowel sounds Rectal Exam: deferred - Genitourinary Male genitourinary: deferred - Integumentary Integumentary: clear, warm, dry, no jaundice, no rash - Psychiatric Psychiatric: appropriate mood/affect, cooperative - Labs CBC & Chem 7: 10/23/16 20:30 10/23/16 20:30 Labs: Microbiology 10/24/16 21:08 Peripheral/Venous Blood Culture - Preliminary NO GROWTH AFTER 24 HOURS 10/24/16 21:08 Peripheral/Venous Blood Culture - Preliminary NO GROWTH AFTER 24 HOURS 10/24/16 21:08 Peripheral/Venous Blood Culture - Preliminary Culture in Progress 10/24/16 21:08 Peripheral/Venous Blood Culture - Preliminary Culture in Progress Laboratory Tests 10/23/16 10/23/16 20:30 20:30 WBC 9.3 Creatinine 9.6 H
[2016-10-26] MEDS ORDERED: NACL 0.9% 1000 ML 100 ML IV PRN (11:13)
[2016-10-26] MEDS ORDERED: HEPARIN 10,000 UNITS/10 ML IV PRN (11:13)
--- NOTE | 2016-10-26 17:13 | Progress Note ---
Assessment and Plan Had dialysis today which made obtaining ARLENE today difficult. Nothing by mouth after midnight. ID notes reviewed. Patient will need repeat ARLENE. Await blood culture results. Antibiotics per ID recommendations. HERO graft successfully accessed. Will order mapping of HERO graft with marking by sonography in order to make access easier when patient is outside of Hospital. Discharge once appropriate antibiotic treatment options determined. Discussed with the patient. Subjective Date of service: 10/26/16 Principal diagnosis: enterococcus bacteremia Interval history: Patient has no complaints. Had some difficulty with access of the hero graft but was ultimately successful. Thrill in hero graft felt on deep palpation. Objective - Constitutional Vitals: Vital Signs - 12hr 10/26/16 10/26/16 10/26/16 05:36 08:10 10:45 Temperature 97.4 F L 97.6 F Pulse Rate 74 Pulse Rate [ 82 Left Radial] Respiratory 18 18 Rate Blood Pressure 113/51 Blood Pressure 115/58 [Left Thigh] O2 Sat by Pulse 100 Oximetry 10/26/16 10/26/16 10/26/16 11:15 11:30 11:45 Temperature Pulse Rate 94 H 90 97 H Pulse Rate [ Left Radial] Respiratory Rate Blood Pressure 135/56 112/54 107/52 Blood Pressure [Left Thigh] O2 Sat by Pulse Oximetry 10/26/16 10/26/16 10/26/16 12:00 12:06 12:15 Temperature Pulse Rate 96 H 92 H 92 H Pulse Rate [ Left Radial] Respiratory Rate Blood Pressure 103/51 111/49 98/52 Blood Pressure [Left Thigh] O2 Sat by Pulse Oximetry 10/26/16 10/26/16 10/26/16 12:30 12:45 13:00 Temperature Pulse Rate 103 H 100 H 96 H Pulse Rate [ Left Radial] Respiratory Rate Blood Pressure 96/52 98/46 106/49 Blood Pressure [Left Thigh] O2 Sat by Pulse Oximetry 10/26/16 10/26/16 10/26/16 13:15 13:30 13:45 Temperature Pulse Rate 98 H 99 H 94 H Pulse Rate [ Left Radial] Respiratory Rate Blood Pressure 112/56 109/54 98/50 Blood Pressure [Left Thigh] O2 Sat by Pulse Oximetry 10/26/16 10/26/16 10/26/16 14:00 14:15 14:30 Temperature Pulse Rate 96 H 96 H 96 H Pulse Rate [ Left Radial] Respiratory Rate Blood Pressure 108/43 106/51 109/51 Blood Pressure [Left Thigh] O2 Sat by Pulse Oximetry 10/26/16 10/26/16 15:14 15:53 Temperature 97.6 F 97.7 F Pulse Rate 95 H Pulse Rate [ 86 Left Radial] Respiratory 18 20 Rate Blood Pressure 108/51 Blood Pressure 104/57 [Left Thigh] O2 Sat by Pulse 98 Oximetry General appearance: Present: no acute distress - EENT Eyes: EOM intact ENT: hearing intact - Respiratory Respiratory effort: normal Extremities: normal temperature, normal color Extremity abnormal: other (thrill in left upper extremity hero graft on deep palpation) - Psychiatric Psychiatric: appropriate mood/affect, cooperative - Labs CBC & Chem 7: 10/23/16 20:30 10/23/16 20:30
[2016-10-26] MEDS: PROTONIX PO SCH (18:57)
[2016-10-26] MEDS ORDERED: NEURONTIN PO SCH (20:00)
[2016-10-26] MEDS: MIRAPEX PO SCH (21:43)
[2016-10-26] MEDS: SODIUM BICARBONATE PO SCH (21:44)
[2016-10-26] MEDS: NEURONTIN PO SCH (21:44)
[2016-10-26] MEDS: FLEXERIL PO SCH (21:45)
[2016-10-26] MEDS: TESSALON PERLES PO SCH (21:45)
[2016-10-26] MEDS: FOLVITE PO SCH (21:45)
[2016-10-26] MEDS: LOPID PO SCH (21:47)
[2016-10-26] MEDS: OxyCONTIN PO SCH (21:49)
[2016-10-26] MEDS ORDERED: DESYREL PO SCH (22:00)
[2016-10-26] MEDS ORDERED: FLEXERIL PO SCH (22:00)
[2016-10-26] MEDS ORDERED: OxyCONTIN PO SCH (22:00)
[2016-10-26] MEDS ORDERED: NON-FORMULARY (Folic Acid 1 MG) PO SCH (22:00)
[2016-10-26] MEDS ORDERED: BENADRYL PO SCH (22:00)
[2016-10-26] MEDS: AMBIEN PO SCH (23:21)
[2016-10-26] MEDS: DESYREL PO SCH (23:21)
[2016-10-27] MEDS: POLYCILLIN/NS 2 GM/100 ML 100 ML IV SCH ×2 (06:02→18:17)
[2016-10-27] MEDS: NORCO 5/325 PO PRN (06:04)
[2016-10-27] MEDS ORDERED: VERSED IV ONE (08:35)
[2016-10-27] MEDS ORDERED: SUBLIMAZE ONE (08:36)
[2016-10-27] MEDS ORDERED: HURRICAINE ONE 20% TOPICAL SPRAY MM (08:36)
[2016-10-27] MEDS ORDERED: SUBLIMAZE IV NR (09:00)
[2016-10-27] MEDS ORDERED: HURRICAINE ONE 20% TOPICAL SPRAY MM NR (09:00)
[2016-10-27] MEDS ORDERED: VERSED IV NR (09:00)
[2016-10-27] MEDS ORDERED: NACL 0.9% 500 ML 500 ML ONE (09:08)
[2016-10-27] MEDS ORDERED: NACL 0.9% 500 ML 500 ML IV ONE (09:45)
[2016-10-27] MEDS ORDERED: XYLOCAINE MPF 2% ONE ×2 (10:00→12:55)
--- NOTE | 2016-10-27 10:23 | Anesthesia Consultation ---
Anesthesia Consult and Med Hx Date of service: 10/27/16 - Airway Anesthetic Teeth Evaluation: Good ROM Head & Neck: Adequate Mental/Hyoid Distance: Adequate Mallampati Class: Class II Intubation Access Assessment: Probably Good - Pulmonary Exam CTA: Yes - Cardiac Exam Cardiac Exam: RRR - Pre-Operative Health Status ASA Pre-Surgery Classification: ASA4 Proposed Anesthetic Plan: MAC - Pulmonary Hx Smoking: No Hx Asthma: No SOB: Yes (WHEN FLUID OVERLOAD) COPD: No Hx Pneumonia: No Hx Sleep Apnea: Yes (DX SLEEP APNEA, NO CPAP USE) - Cardiovascular System Hx Hypertension: No Hx Heart Murmur: Yes (CAUSES NO PROBLEMS) Hx Peripheral Vascular Disease: Yes (JESSIE ARM AND LEGS) - Central Nervous System Hx Seizures: No Hx Back Pain: Yes (CHRONIC/SPINAL CORD STIMULATOR) Hx Psychiatric Problems: Yes - Gastrointestinal Hx Ulcer: No Hx Gastroesophageal Reflux Disease: Yes (meds qday) - Endocrine 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 - Additional Comments Anesthesia Medical History Comments: PE 2012
--- NOTE | 2016-10-27 10:23 | Anesthesia Day of Surgery ---
Anesthesia Day of Surgery - Day of Surgery Patient Examined: Yes Patient H&P Reviewed: Yes Patient is NPO: Yes
--- NOTE | 2016-10-27 10:24 | Post Anesthesia Evaluation ---
- Post Anesthesia Evaluation Patient Participated: Yes Airway Patent: Yes Stable Respiratory Function: Yes Nausea/Vomiting: No Temp > 96.8F: Yes Pain Manageable: Yes Adequeate Hydration: Yes Anesthesia Complications: No Block Receding Appropriately: Not Applicable Patient on Ventilator: No
--- NOTE | 2016-10-27 10:29 | Progress Note ---
Assessment and Plan ESRD (polycystic kidney disease), left arm HERO graft placed 2 weeks ago, left chest wall power port, and right chest wall permacath s/p right chest wall permacath exchange over a guide wire on 10/21/16. s/p HERO cath declotting, with angioplasty and thrombectomy by Dr. Blankenship on 10/24/16. High grade Enterococcus faecalis bacteremia that is thought to be related to an infected permacath that was exchanged on 10/21/16. History of mobile density revealed by ARLENE at [facility] that was thought to be related to the catheter. Repeat blood culture are negative so far ARLENE today is still showing evidence of two mobile echo densities in the right atrium attached to catheter and measuring 1 cm in diameter each (Catheter is noted both in SVC and IVC) leukocytosis, resolved initially 20.1 History of Enterococcus bacteremia in 05/2015 treated with 4 weeks of iv ampicillin History of MRSA colonization Recommendations: Anticoagulation with IV heparin is warranted - the mobile densities in the RA may represent mobile thrombus Will consult with cardiothoracic surgery regarding this case and come out with plan Subjective Date of service: 10/27/16 Principal diagnosis: enterococcus bacteremia Interval history: A ARLENE was performed today with no complications Objective Vital Signs Temp Temp Pulse Pulse Pulse Resp Resp 10/27/16 10:02 99 H 10/27/16 09:52 96 H 10/27/16 09:23 97.6 F 92 H 10/27/16 07:46 97.7 F 88 16 10/27/16 01:55 98.6 F 96 H 18 10/27/16 00:00 18 10/26/16 23:21 20 10/26/16 21:49 20 10/26/16 15:53 97.7 F 86 20 10/26/16 15:14 97.6 F 95 H 18 10/26/16 14:30 96 H 10/26/16 14:15 96 H 10/26/16 14:00 96 H 10/26/16 13:45 94 H 10/26/16 13:30 99 H 10/26/16 13:15 98 H 10/26/16 13:00 96 H 10/26/16 12:45 100 H 10/26/16 12:30 103 H 10/26/16 12:15 92 H 10/26/16 12:06 92 H 10/26/16 12:00 96 H 10/26/16 11:45 97 H 10/26/16 11:30 90 10/26/16 11:15 94 H 10/26/16 10:45 97.6 F 74 18 Resp BP BP BP Pulse Ox Pulse Ox 10/27/16 10:02 18 146/74 100 10/27/16 09:52 18 100 10/27/16 09:23 20 104/68 96 10/27/16 07:46 90/58 98 10/27/16 01:55 84/42 10/27/16 00:00 10/26/16 23:21 10/26/16 21:49 10/26/16 15:53 104/57 98 10/26/16 15:14 108/51 10/26/16 14:30 109/51 10/26/16 14:15 106/51 10/26/16 14:00 108/43 10/26/16 13:45 98/50 10/26/16 13:30 109/54 10/26/16 13:15 112/56 10/26/16 13:00 106/49 10/26/16 12:45 98/46 10/26/16 12:30 96/52 10/26/16 12:15 98/52 10/26/16 12:06 111/49 10/26/16 12:00 103/51 10/26/16 11:45 107/52 10/26/16 11:30 112/54 10/26/16 11:15 135/56 10/26/16 10:45 113/51 - Physical Examination HEENT: Positive: PERRL Neck: Positive: neck supple Cardiac: Positive: Reg Rate and Rhythm Lungs: Positive: Normal Exam Neuro: Positive: Grossly Intact Abdomen: Positive: Soft Extremities: Absent: edema
[2016-10-27] MEDS ORDERED: HEPARIN 10,000 UNITS/10 ML IV ONE (10:30)
--- NOTE | 2016-10-27 10:36 | TEE Report ---
Transesophageal Echocardiogram Indication: Vegetation BP: 90/58 HR: 90 Conclusions *The left ventricular chamber size is normal. *The estimated ejection fraction is 60-65%. *A catheter is visualized in the right atrium.The catheter is seen both in the SVC and IVC. *A mass is visualized in the right atrium.There are 2 mobiles masses attached to a catheter in the right atrium, each measuring 1 cm in diameter. *Mild aortic cusp sclerosis is present. *There is evidence of grade 2 (extensive intimal thickening) atheromatous disease in the ascending aorta. Findings Procedure Info: The study quality is good. ARLENE Procedures: The posterior pharynx was anesthetized. The patient was placed in a left lateral recumbent position and a plastic bite block was inserted into the mouth. IV sedation was administered. A transesophageal echocardiography probe was inserted into the posterior pharynx and the esophagus was then intubated without difficulty. Multiple views were then obtained from the upper, mid and lower esophagus and the gastric fundus. The scope was rotated 180 degrees and the aorta was visualized. The scope withdrawn under continuous suction. The patient tolerated the procedure well without any apparent complications. The procedure and risk were explained to the patient who consented to the study. Left Ventricle: The left ventricular chamber size is normal. Global left ventricular wall motion and contractility are within normal limits. The estimated ejection fraction is 60-65%. Left Atrium: There is no thrombus visualized in the left atrial appendage. Right Ventricle: The right ventricular cavity size is normal. The right ventricular global systolic function is normal. Right Atrium: The right atrial cavity size is normal. A catheter is visualized in the right atrium.The catheter is seen both in the SVC and IVC. A mass is visualized in the right atrium.There are 2 mobiles masses attached to a catheter in the right atrium, each measuring 1 cm in diamter. Aortic Valve: The aortic valve is trileaflet. Mild aortic cusp sclerosis is present. There is no evidence of aortic regurgitation. There is no evidence of aortic stenosis. Mitral Valve: There is prolapse of the posterior leaflet of the mitral valve. There is no evidence of mitral regurgitation. There is no evidence of mitral stenosis. Tricuspid Valve: The tricuspid valve leaflets are normal. There is no evidence of tricuspid valve regurgitation. Pulmonic Valve: The pulmonic valve is not well visualized. Pericardium: There is no pericardial effusion. Aorta: There is evidence of grade 2 (extensive intimal thickening) atheromatous disease in the ascending aorta. There is evidence of grade 2 (extensive intimal thickening) atheromatous disease in the transverse aorta. There is evidence of grade 2 (extensive intimal thickening) atherotic disease in the descending aorta.
[2016-10-27] MEDS ORDERED: HEPARIN/ 0.45% NACL-25,000 UNIT/500 ML 500 ML IV SCH (11:00)
--- NOTE | 2016-10-27 11:17 | Progress Note ---
Assessment and Plan Current antibiotics: Ampicillin 2 grams IV q12h 10/17 --> Previous Antibiotics: Cefazolin preop 10/24 Vancomycin 10/15-10/17 Zosyn 10/15-10/16 Levaquin 10/15-10/16 ASSESSMENT: Edward Del Cid is a 45 year old man with ESRD (polycystic kidney disease) , left arm HERO graft placed 2 weeks ago, left chest wall power port, and right chest wall permacath who presented to [facility] on 10/15/16 with shaking chills and fevers and was found to have Enterococcus faecalis bacteremia with positive blood cultures on 10/15, 10/16 and 10/17. Blood cultures on 10/18, 10/19 negative. ARLENE showed a mobile mass in the right atrium thought to be related to catheter. He did have the right chest wall permacath changed over a guide wire on 10/21/16. Patient was transferred to have the HERO cath declotted and he underwent angioplasty and thrombectomy by Dr. Blankenship on . Problem list: 1 Enterococcus faecalis bacteremia -Blood cultures +10/15, 10/16, 10/17 -10/18 10/19 no growth so far -Likely initially secondary to an infected permacath that was exchanged on -Now suspect infected [id number] -Endocarditis with mobile right atrium masses still seen on repeat ARLENE 10/26 2. Leukocytosis -Resolved -Initially was 20.1 3. History of Enterococcus bacteremia in 05/2015 treated with 4 weeks of IV ampicillin 4. History of MRSA colonization 5) HERO graft thrombus s/p angioplasty on 10/24/16 PLAN: 1. Continue ampicillin anticipate giving 6 weeks total 2. Discussed with Dr. Gaines and he will schedule for [id number] removal today with culture of tip 3. Follow-up blood cultures from 10/24 (NGTD) Mk Kwon MD [facility] Office: [phone] Subjective Date of service: 10/27/16 Principal diagnosis: Enterococcus bacteremia; endocarditis Interval history: In general feels better but still having occasional chills. No new complaints. ROS: No nausea, vomiting or diarrhea. No shortness of breath, cough or pleuritic chest pain Objective - Exam Narrative Exam: GENERAL: Well-developed, well-nourished appearing who is alert and in no acute distress. HEAD: Normocephalic. No lesions seen. EYES: Pupils are equal reactive to light and accommodation. There is no scleral icterus. Optic fundi are not examined. EARS: Tympanic membranes are normal. THROAT: Oropharynx is normal with no evidence of oral candidiasis or pharyngitis. NECK: Supple. No enlargement of the thyroid gland. No significant cervical lymphadenopathy. No jugular venous distention at 30. LUNGS: Clear with no adventitious sounds. HEART: Regular rate. S1 and S2 are normal. There are no murmurs, gallops, clicks or rubs heard. ABDOMEN: Soft and nontender. Liver and spleen are not palpably enlarged or tender. No palpable masses. Bowel sounds are normoactive. EXTREMITIES: No rash, peripheral lymphadenopathy, clubbing or edema. : Not examined NEUROLOGIC: No focal findings. - Constitutional Vitals: Vital Signs Temp Pulse Resp BP Pulse Ox 97.5 F L 94 H 18 116/98 99 10/27/16 10:20 10/27/16 10:30 10/27/16 10:30 10/27/16 10:30 10/27/16 10:30 Temperature -Last 24 Hours Temperature [Post-Procedure] 97.5 F Temperature [Pre-Procedure] 97.6 F Temperature 97.7 F Temperature 98.6 F Temperature 97.7 F Temperature 97.6 F - Labs CBC & Chem 7: 10/23/16 20:30 10/23/16 20:30 Labs: Microbiology 10/24/16 21:08 Peripheral/Venous Blood Culture - Preliminary NO GROWTH AFTER 48 HOURS 10/24/16 21:08 Peripheral/Venous Blood Culture - Preliminary NO GROWTH AFTER 48 HOURS 10/26: ARLENE: To multiple masses attached to the catheter in the right atrium each measuring 1 cm in diameter. No valvular lesions seen.
--- NOTE | 2016-10-27 11:22 | Progress Note ---
Assessment and Plan End-stage renal disease currently in maintenance hemodialysis currently on hemodialysis Sunday schedule Patient was transferred from [facility] due to enterococcal bacteremia, felt to be high-grade has had central venous catheter removed and replaced with air on the right side Vegetation was noted on the catheter tip per cardiology and hence it is being removed ARLENE today is still showing evidence of two mobile echo densities in the right atrium attached to catheter and measuring 1 cm in diameter each (Catheter is noted both in SVC and IVC) He will be getting his MediPort removed today, Patient wants to go home and dialyze at [facility] dialysis [facility], he has already made arrangements for dialysis tomorrow Antibiotic needs to be arranged by the discharge planning patient is aware He will need to follow up with infectious disease in outpatient setting as recommended He will also need a follow-up with the vascular surgery currently he does have heat or graft which was declotted Subjective Principal diagnosis: Enterococcus bacteremia; endocarditis Interval history: seen today for follow-up no acute complaints patient will be going for his MediPort removal today No complaints of any fever or chills discussed with Dr. Gaines at the bedside, his graft seems to be working well Is currently on dialysis on Sunday schedule Patient is doing much better in terms of fluid gains Objective - Vital Signs Vital signs: Vital Signs - 12hr 10/27/16 10/27/16 10/27/16 00:00 01:55 07:46 Temperature 98.6 F 97.7 F Temperature [ Post-Procedure] Temperature [ Pre-Procedure] Pulse Rate [ 96 H 88 Left Radial] Pulse Rate [ Post-Procedure] Pulse Rate [Pre -Procedure] Respiratory 18 16 Rate Respiratory 18 Rate [Bilateral Leg] Respiratory Rate [Post- Procedure] Respiratory Rate [Pre- Procedure] Blood Pressure 84/42 90/58 [Left Thigh] Blood Pressure [Post-Procedure ] Blood Pressure [Pre-Procedure] O2 Sat by Pulse 98 Oximetry O2 Sat by Pulse Oximetry [Post -Procedure] O2 Sat by Pulse Oximetry [Pre- Procedure] 10/27/16 10/27/16 10/27/16 09:23 09:52 10:02 Temperature Temperature [ Post-Procedure] Temperature [ 97.6 F Pre-Procedure] Pulse Rate [ Left Radial] Pulse Rate [ Post-Procedure] Pulse Rate [Pre 92 H 96 H 99 H -Procedure] Respiratory Rate Respiratory Rate [Bilateral Leg] Respiratory Rate [Post- Procedure] Respiratory 20 18 18 Rate [Pre- Procedure] Blood Pressure [Left Thigh] Blood Pressure [Post-Procedure ] Blood Pressure 104/68 146/74 [Pre-Procedure] O2 Sat by Pulse Oximetry O2 Sat by Pulse Oximetry [Post -Procedure] O2 Sat by Pulse 96 100 100 Oximetry [Pre- Procedure] 10/27/16 10/27/16 10:20 10:30 Temperature Temperature [ 97.5 F L Post-Procedure] Temperature [ Pre-Procedure] Pulse Rate [ Left Radial] Pulse Rate [ 88 94 H Post-Procedure] Pulse Rate [Pre -Procedure] Respiratory Rate Respiratory Rate [Bilateral Leg] Respiratory 16 18 Rate [Post- Procedure] Respiratory Rate [Pre- Procedure] Blood Pressure [Left Thigh] Blood Pressure 135/74 116/98 [Post-Procedure ] Blood Pressure [Pre-Procedure] O2 Sat by Pulse Oximetry O2 Sat by Pulse 99 99 Oximetry [Post -Procedure] O2 Sat by Pulse Oximetry [Pre- Procedure] - General Appearance General appearance: appears stated age EENT: mucous membranes moist Neck: no JVD Respiratory: Present: Clear to Ascultation (mild erythema near the catheter site better) Cardiology: regular (S1-S2 normal no S3-S4) Gastrointestinal: other (obese nontender abdomen) Neurologic: other (alert and awake follows commands) - Lab 10/27/16 15:44 10/27/16 15:44 Most recent lab results Calcium 9.7 mg/dL (8.4-10.2) 10/23/16 20:30 Phosphorus 7.0 mg/dL (2.5-4.5) H 10/23/16 20:30
[2016-10-27] MEDS: DILAUDID IV PRN ×2 (12:04→19:39)
[2016-10-27] MEDS ORDERED: DIPRIVAN 10 MG/ML IV ONE ×3 (12:11→12:55)
--- NOTE | 2016-10-27 12:28 | Event Note ---
Date: 10/27/16 Pt diego'd early this am. He is now s/p ARLENE. Results discussed between Dr Gaines and Dr Melchor. Pt has a mobile mass on the distal tip of his port tubing. The ID service was contacted. It was felt the port would need to be removed. The pt was notified, the risk benefits and alternatives were discussed in great detail. He states understanding and agrees to proceed. This will be scheduled in the catheter finisher and inspector later today.
[2016-10-27] MEDS ORDERED: HEPARIN/NS 5000 UNIT/500ML(CATH LAB) 500 ML IR ONE (13:05)
[2016-10-27] MEDS ORDERED: HEPARIN 10,000 UNITS/10 ML ONE (13:05)
[2016-10-27] MEDS ORDERED: XYLOCAINE 1%/ EPI 1:100,000 INFILTRATI ONE (13:05)
[2016-10-27] MEDS ORDERED: ANCEF/STERILE WATER 2 GM/20 ML 20 ML IV ONE (13:08)
[2016-10-27] MEDS ORDERED: VERSED ONE (13:13)
[2016-10-27] MEDS ORDERED: NEO SYNEPHRINE/NS Syringe(OR USE) IV ONE (13:15)
[2016-10-27] MEDS ORDERED: NACL 0.9% 1000 ML 1,000 ML ONE (13:29)
[2016-10-27] MEDS ORDERED: DILAUDID ONE (13:43)
[2016-10-27] MEDS ORDERED: NACL 0.9% 100 ML ONE (13:56)
--- NOTE | 2016-10-27 14:24 | Discharge Summary ---
<WILTON YADAV - Last Filed: 10/27/16 15:02> Providers - Providers Date of Admission: 10/23/16 19:23 Date of discharge: 10/28/16 Attending physician: CALE BLANKENSHIP 10/23/16 14:57 Consult to Physician [CONS] Routine Consulting Provider: JUVENAL STEPHENS Reason For Exam: bacteremia, "vegatation on catheter" Place consult to:: Office Notified:: yes Phone number called:: [phone] Was contact made?: Yes If yes, spoke with:: Olivia Time called:: 20:00 Consult to Physician [CONS] Routine Consulting Provider: SUE SHERMAN Reason For Exam: management of renal failure Place consult to:: Office Notified:: yes Phone number called:: [phone] Was contact made?: Yes If yes, spoke with:: Olivia Time called:: 20:03 10/24/16 17:39 Consult to Physician [CONS] Routine Consulting Provider: ABHISHEK STOVALL Reason For Exam: Medical Management Place consult to:: cellphone Notified:: yes Phone number called:: [phone] Was contact made?: Yes If yes, spoke with:: Time called:: 17:45 Primary care physician: BHARATH FELICIANO [facility] Reason for admission: Malfunctioning Hemodialysis Access Condition: Stable Procedures: Operative Report Operative Report: Date of procedure: 10/24/2016 Pre-operative diagnosis: Thrombosed left upper extremity HERO graft Post-operative diagnosis: The same Procedure name(s): 1. Placement of the arterial sheath under ultrasound guidance. 2. Placement of venous sheath under ultrasound guidance. 3. Fistulogram. 4. Left upper extremity arteriogram. 5. Infusion of tPA via power pulse. 6. Percutaneous mechanical thrombectomy using a 6 Armenian AngioJet catheter. 7. Uldr-ekr-noez Anthony thrombectomy of the anastomosis. 8. Balloon angioplasty of the graft and the outflow component using 6 x 1 20 balloon. 9. Balloon angioplasty of the arterial anastomosis using 5 x 40 angioplasty balloon. 10. Radiologic supervision and interpretation. Surgeon: Cale Blankenship MD, RPVI Travel Specialist: None Anesthesia: Local with IV sedation. Findings 1. Thrombosed HERO left arm dialysis catheter. 2. No significant stenosis noted in the proximal and distal brachial artery or axillary artery. 3. Complete resolution of thrombosis of the graft was excellent brisk flow. Specimens: None EBL: Minimal IV fluids: KVO Urine output: None Disposition: The recovery Indications: Thrombosed left upper extremity HERO AV graft Operative Report Patient Name: DESEAN FAUSTIN Date of : 66 Patient Status: Inpatient Attending Provider: CALE BLANKENSHIP Date: 10/27/16 14:35 Initialization Date: 10/27/16 14:35 Addendum entered and electronically signed by SAVAGE CRISTOBAL MD 10/27/16 14: 38: ANESTHESIA: MODERATE SEDATION PER ANESTHESIOLOGY Original Note: Operative Report Operative Report: EXAM: Left chest internal jugular port removal under fluoroscopic guidance DATE: 10/27/16 EVALUATION ASSISTANT: SAVAGE CRISTOBAL MD INDICATION: Left chest port catheter associated with possible vegetations requiring explantation after discussion with infectious disease. MEDICATIONS: Please see nursing report for full details. CONTRAST: None PROCEDURE: Following an explanation of the risks, benefits, and alternatives; written informed consent was obtained. The patient was brought to the angiography suite and placed in supine position on the examination table. Area around the port was prepped and draped in a sterile fashion. The port site was then anesthetized with local anesthetic. 10 blade was used to make a 2.5 centimeter incision along the existing port healed incision. Curved hemostats were used to slowly separate the site and expose the port. As this was done, hemostasis was achieved with the use of compression. The port tubing was expose the tubing was clamped. The tubing was then freed and completely extracted. Pressure was held at the prior venotomy sites after tubing removal until hemostasis was achieved. Securing sutures were cut and the port was then removed intact. The area was then evaluated and washed with sterile saline. Hemostasis was achieved with manual compression. The site was then closed in 2 layers with interrupted 3-0 Vicryl sutures and a running 4-0 Vicryl subcuticular suture. Dermabond was applied. Steri-Strips were applied. Sterile dressing was then applied. The patient tolerated the procedure well. There were no immediate postprocedural complications. FINDINGS: Successful removal of a left chest port. Equipment Records Supervisor radiograph demonstrates a intact port. Post procedural radiograph demonstrates successful port removal without residual tubing. No purulence in the port pocket. IMPRESSION: Successful removal of a left chest internal jugular port under fluoroscopic guidance. Hospital course: This patient is well-known or service due to multiple arterial and hemodialysis procedures in the past. He apparently became febrile and activated EMS. He was transported to [facility] where he was subsequently admitted. He was found to be bacteremic and his right internal jugular vein permacath was exchanged. He had a ARLENE which revealed a mobile "vegetation" on the tip of one of his central venous catheters. He has a left upper arm Hero AV graft which previously thrombosed. Our office was contacted to arrange for transfer the patient to this facility, as they were unable to perform the necessary surgical intervention. Once admitted consults were placed to the infectious disease service, nephrology service, and hospitalists. The patient was taken to the cardiac catheterization suite where the above stated procedure was performed without complication. Postoperatively the patient was started on antibiotics and blood cultures were repeated. A transesophageal echocardiogram was performed. This again confirmed a mobile mass on the end of the distal tip of his Tjhmrx-j-Wsia tubing. Given the recent infection and mobile mass, it was felt the Cxmjue-g-Ktag would need to be removed. The risks benefits and alternatives to this were discussed in detail with the patient who stated understanding and agreed. Postoperative antibiotics and arrangements to be completed based upon the infectious disease recommendations. Disposition: DISCHARGED TO HOME OR SELFCARE - Discharge Diagnoses (1) Hemodialysis graft malfunction Status: Acute (2) Bacteremia Status: Acute (3) Port or reservoir infection Status: Acute Core Measure Documentation - Palliative Care Palliative Care/ Comfort Measures: Not Applicable - Core Measures Any of the following diagnoses?: none Exam - Constitutional Vitals: Temp Pulse Resp BP Pulse Ox 97.5 F L 94 H 18 116/98 99 10/27/16 10:20 10/27/16 10:30 10/27/16 10:30 10/27/16 10:30 10/27/16 10:30 General appearance: Present: no acute distress, obese - EENT Eyes: Present: EOM intact ENT: hearing intact - Neck Neck: Present: supple - Respiratory Respiratory effort: normal (unlabored at rest with nasal cannula oxygen supplementation) - Extremities Extremities: abnormal (incisions intact without erythema or drainage) - Psychiatric Psychiatric: appropriate mood/affect, intact judgment & insight, cooperative - Neurologic Neurologic: no focal deficits Plan Activity: advance as tolerated Weight Bearing Status: Weight Bear as Tolerated Diet: renal Wound: keep clean and dry Follow up with: KATHY ROSALES MD [Staff Physician] - 7 Days CALE BLANKENSHIP MD [Staff Physician] - 14 Days Prescriptions: Lidocain2.5%/Prilocai2.5% [Emla] 1 applic TP 3XW PRN #1 tube PRN Reason: Pain <SUSUSAVAGE IMANI - Last Filed: 10/29/16 12:35> Providers - Providers Date of Admission: 10/23/16 19:23 Date of discharge: 10/29/16 Attending physician: CALE BLANKENSHIP 10/23/16 14:57 Consult to Physician [CONS] Routine Consulting Provider: JUVENAL STEPHENS Reason For Exam: bacteremia, "vegatation on catheter" Place consult to:: Office Notified:: yes Phone number called:: [phone] Was contact made?: Yes If yes, spoke with:: Olivia Time called:: 20:00 Consult to Physician [CONS] Routine Consulting Provider: SUE SHERMAN Reason For Exam: management of renal failure Place consult to:: Office Notified:: yes Phone number called:: [phone] Was contact made?: Yes If yes, spoke with:: Olivia Time called:: 20:03 10/24/16 17:39 Consult to Physician [CONS] Routine Consulting Provider: ABHISHEK STOVALL Reason For Exam: Medical Management Place consult to:: cellphone Notified:: yes Phone number called:: [phone] Was contact made?: Yes If yes, spoke with:: Time called:: 17:45 Primary care physician: BHARATH FELICIANO Hospitalization Hospital course: Antibiotics had to be changed due to ESRD. Changed from Ampicillin to vancomycin for [address] Rosales and Dr. Leonard. Exam - Constitutional Vitals: Temp Pulse Resp BP Pulse Ox 97.2 F L 82 20 95/55 97 10/29/16 08:02 10/29/16 08:02 10/29/16 08:02 10/29/16 08:02 10/29/16 08:02 General appearance: Present: no acute distress - EENT Eyes: Present: EOM intact ENT: hearing intact - Respiratory Respiratory effort: normal - Extremities Extremities: normal temperature, normal color Extremity abnormal: other (AV access with thrill LUE) - Abdominal General gastrointestinal: Present: soft, non-tender - Psychiatric Psychiatric: appropriate mood/affect, cooperative Plan Activity: advance as tolerated Weight Bearing Status: Weight Bear as Tolerated Diet: renal Wound: keep clean and dry
--- NOTE | 2016-10-27 14:38 | Operative Report ---
Operative Report Operative Report: EXAM: Left chest internal jugular port removal under fluoroscopic guidance DATE: 10/27/16 GLOBAL POSITION SYSTEM TECHNICIAN: SAVAGE CRISTOBAL MD INDICATION: Left chest port catheter associated with possible vegetations requiring explantation after discussion with infectious disease. MEDICATIONS: Please see nursing report for full details. CONTRAST: None PROCEDURE: Following an explanation of the risks, benefits, and alternatives; written informed consent was obtained. The patient was brought to the angiography suite and placed in supine position on the examination table. Area around the port was prepped and draped in a sterile fashion. The port site was then anesthetized with local anesthetic. 10 blade was used to make a 2.5 centimeter incision along the existing port healed incision. Curved hemostats were used to slowly separate the site and expose the port. As this was done, hemostasis was achieved with the use of compression. The port tubing was expose the tubing was clamped. The tubing was then freed and completely extracted. Pressure was held at the prior venotomy sites after tubing removal until hemostasis was achieved. Securing sutures were cut and the port was then removed intact. The area was then evaluated and washed with sterile saline. Hemostasis was achieved with manual compression. The site was then closed in 2 layers with interrupted 3-0 Vicryl sutures and a running 4-0 Vicryl subcuticular suture. Dermabond was applied. Steri-Strips were applied. Sterile dressing was then applied. The patient tolerated the procedure well. There were no immediate postprocedural complications. FINDINGS: Successful removal of a left chest port. Technology Administrator radiograph demonstrates a intact port. Post procedural radiograph demonstrates successful port removal without residual tubing. No purulence in the port pocket. IMPRESSION: Successful removal of a left chest internal jugular port under fluoroscopic guidance.
[2016-10-27 15:58] LABS: Basophils % (Auto) 1.4 % (0.0-1.8); Eosinophils % (Auto) 8.6 % (0.0-4.3); Hematocrit 30.3 % (35.5-45.6); Hemoglobin 9.9 gm/dl (11.8-15.2); Mean Corpuscular HGB Conc 33 % (32-34); Mean Corpuscular Hemoglobin 32 pg (28-32); Mean Corpuscular Volume 97 fl (84-94); Platelet Count 305 K/mm3 (140-440); Red Blood Count 3.13 M/mm3 (3.65-5.03); Red Cell Distribution Width 15.5 % (13.2-15.2); White Blood Count 8.2 K/mm3 (4.5-11.0)
[2016-10-27 16:06] LABS: INR 1.15 (0.87-1.13)
[2016-10-27 16:07] LABS: Partial Thromboplastin Time 37.6 Sec. (24.2-36.6)
[2016-10-27 16:18] LABS: Albumin 3.5 g/dL (3.9-5); Albumin/Globulin Ratio 1.3 %; Alkaline Phosphatase 53 units/L (35-129); BUN/Creatinine Ratio 4.52; Bilirubin,Total < 0.2 mg/dL (0.1-1.2); Blood Urea Nitrogen 33 mg/dL (9-20); Calcium 9.2 mg/dL (8.4-10.2); Carbon Dioxide 26 mmol/L (22-30); Chloride 96.7 mmol/L (98-107); Glucose 96 mg/dL (75-100); Phosphorous 5.8 mg/dL (2.5-4.5); Potassium 4.8 mmol/L (3.6-5.0); Sodium 139 mmol/L (137-145); Total Protein 6.1 g/dL (6.3-8.2)
[2016-10-27 16:21] LABS: Alanine Aminotransferase < 5 units/L (7-56); Anion Gap 21 mmol/L
[2016-10-27] MEDS: NEURONTIN PO SCH ×3 (18:17→20:33)
[2016-10-27] MEDS: PROAMATINE PO SCH (18:18)
[2016-10-27] MEDS: PROTONIX PO SCH (18:18)
[2016-10-27] MEDS: ROCALTROL PO SCH ×2 (18:22→18:25)
[2016-10-27] MEDS: OxyCONTIN PO SCH ×2 (18:23→22:36)
[2016-10-27] MEDS: SODIUM BICARBONATE PO SCH ×2 (18:23→22:36)
[2016-10-27] MEDS: LOPID PO SCH ×2 (18:24→22:37)
[2016-10-27] MEDS: PLAVIX PO SCH (18:24)
[2016-10-27] MEDS: FOLVITE PO SCH ×2 (18:24→22:37)
[2016-10-27] MEDS: TESSALON PERLES PO SCH ×2 (18:26→22:37)
[2016-10-27] MEDS: FLEXERIL PO SCH (22:36)
[2016-10-27] MEDS: MIRAPEX PO SCH (22:36)
[2016-10-27] MEDS: DESYREL PO SCH (22:37)
[2016-10-27] MEDS: AMBIEN PO SCH (22:38)
[2016-10-28] MEDS: BENADRYL PO PRN ×2 (02:13→12:21)
[2016-10-28] MEDS: DILAUDID IV PRN ×3 (02:14→21:53)
[2016-10-28] MEDS: POLYCILLIN/NS 2 GM/100 ML 100 ML IV SCH (05:29)
[2016-10-28] MEDS: NEURONTIN PO SCH ×3 (11:01→20:40)
[2016-10-28] MEDS: LOPID PO SCH ×2 (12:30→21:09)
[2016-10-28] MEDS: FOLVITE PO SCH ×2 (12:30→21:04)
[2016-10-28] MEDS: OxyCONTIN PO SCH ×2 (12:31→21:06)
[2016-10-28] MEDS: TESSALON PERLES PO SCH ×2 (12:31→21:06)
[2016-10-28] MEDS: SODIUM BICARBONATE PO SCH ×2 (12:32→21:04)
[2016-10-28] MEDS: ROCALTROL PO SCH (12:32)
[2016-10-28] MEDS: PROTONIX PO SCH (12:32)
[2016-10-28] MEDS: PROAMATINE PO SCH (12:33)
[2016-10-28] MEDS: PLAVIX PO SCH (12:33)
--- NOTE | 2016-10-28 13:09 | Progress Note ---
Assessment and Plan - Patient Problems (1) Port or reservoir infection Current Visit: Yes Status: Acute Plan to address problem: Antibiotic regimen as per infectious disease. Subjective Date of service: 10/28/16 Principal diagnosis: Enterococcus bacteremia; endocarditis Interval history: Patient is status post removal of an infected port catheter, seen on ARLENE with vegetations. Follow-up intravenous antibiotic regimen as per infectious disease. Objective Vital Signs Temp Pulse Pulse Resp Resp Resp Resp 10/28/16 13:00 105 H 10/28/16 12:30 82 10/28/16 12:15 87 10/28/16 12:11 97.5 F L 83 18 10/28/16 11:55 97.6 F 87 20 10/28/16 10:00 10/28/16 08:00 97.5 F L 92 H 18 10/28/16 02:44 17 10/28/16 02:14 18 10/28/16 01:16 10/28/16 00:00 97.8 F 88 18 10/27/16 23:36 20 10/27/16 22:36 18 10/27/16 22:00 20 18 20 10/27/16 20:09 18 10/27/16 15:44 98.1 F 16 10/27/16 15:15 75 16 10/27/16 15:00 86 15 10/27/16 14:45 98.0 F 81 12 BP BP BP Pulse Ox 10/28/16 13:00 131/64 10/28/16 12:30 105/63 10/28/16 12:15 112/71 10/28/16 12:11 107/55 98 10/28/16 11:55 105/56 10/28/16 10:00 97 10/28/16 08:00 96/54 98 10/28/16 02:44 10/28/16 02:14 10/28/16 01:16 92 10/28/16 00:00 96/54 98 10/27/16 23:36 10/27/16 22:36 10/27/16 22:00 10/27/16 20:09 10/27/16 15:44 96/50 96 10/27/16 15:15 99/58 100 10/27/16 15:00 103/52 100 10/27/16 14:45 112/53 100 - Physical Examination General: No Apparent Distress HEENT: Positive: PERRL Neck: Positive: neck supple Cardiac: Positive: Reg Rate and Rhythm Lungs: Positive: Decreased Breath Sounds Neuro: Positive: Grossly Intact Abdomen: Positive: Soft Skin: Positive: Clear Extremities: Absent: edema - Labs and Meds Cardiac Enzymes 10/27/16 Range/Units 15:44 AST 13 (5-40) units/L Coagulation 10/27/16 Range/Units 15:44 PT 14.6 (12.2-14.9) Sec. INR 1.15 H (0.87-1.13) APTT 37.6 H (24.2-36.6) Sec. CBC 10/27/16 Range/Units 15:44 WBC 8.2 (4.5-11.0) K/mm3 RBC 3.13 L (3.65-5.03) M/mm3 Hgb 9.9 L (11.8-15.2) gm/dl Hct 30.3 L (35.5-45.6) % Plt Count 305 (140-440) K/mm3 Lymph # 1.4 (1.2-5.4) K/mm3 Whitfield # 0.5 (0.0-0.8) K/mm3 Eos # 0.7 H (0.0-0.4) K/mm3 Baso # 0.1 (0.0-0.1) K/mm3 Comprehensive Metabolic Panel 10/27/16 Range/Units 15:44 Sodium 139 (137-145) mmol/L Potassium 4.8 (3.6-5.0) mmol/L Chloride 96.7 L (98-107) mmol/L Carbon Dioxide 26 (22-30) mmol/L BUN 33 H (9-20) mg/dL Creatinine 7.3 H (0.8-1.5) mg/dL Glucose 96 (75-100) mg/dL Calcium 9.2 (8.4-10.2) mg/dL AST 13 (5-40) units/L ALT < 5 L (7-56) units/L Alkaline Phosphatase 53 (35-129) units/L Total Protein 6.1 L (6.3-8.2) g/dL Albumin 3.5 L (3.9-5) g/dL
[2016-10-28] MEDS ORDERED: DILAUDID IV ONE (13:31)
--- NOTE | 2016-10-28 14:54 | Progress Note ---
Assessment and Plan Having dialysis today. HERO graft access successful. Discussed echocardiogram with infectious disease and subsequently had port explantation today. Antibiotics per ID recommendations. Awaiting confirmation of antibiotics with dialysis Center which, unfortunately, will not be until Sunday. Discussed with the patient. Subjective Date of service: 10/28/16 Principal diagnosis: Enterococcus bacteremia; endocarditis Interval history: Patient has no complaints. Again, had some difficulty with access of the hero graft but was ultimately successful. Thrill in hero graft felt on deep palpation. Port incision site looks c/d/i. Objective - Constitutional Vitals: Vital Signs - 12hr 10/28/16 10/28/16 10/28/16 08:00 10:00 11:55 Temperature 97.5 F L 97.6 F Pulse Rate 87 Pulse Rate [ 92 H Left Radial] Respiratory 18 20 Rate Blood Pressure 105/56 Blood Pressure 96/54 [Right Thigh] O2 Sat by Pulse 98 97 Oximetry 10/28/16 10/28/16 10/28/16 12:11 12:15 12:30 Temperature 97.5 F L Pulse Rate 87 82 Pulse Rate [ 83 Left Radial] Respiratory 18 Rate Blood Pressure 112/71 105/63 Blood Pressure 107/55 [Right Thigh] O2 Sat by Pulse 98 Oximetry 10/28/16 10/28/16 12:45 13:00 Temperature Pulse Rate 82 105 H Pulse Rate [ Left Radial] Respiratory Rate Blood Pressure 121/72 131/64 Blood Pressure [Right Thigh] O2 Sat by Pulse Oximetry General appearance: Present: no acute distress - EENT Eyes: EOM intact ENT: hearing intact - Respiratory Respiratory effort: normal Extremity abnormal: other (recieving dialysis in HERO graft) - Labs CBC & Chem 7: 10/27/16 15:44 10/27/16 15:44 Labs: Abnormal lab results 10/27/16 10/27/16 10/27/16 Range/Units 15:44 15:44 15:44 RBC 3.13 L (3.65-5.03) M/mm3 Hgb 9.9 L (11.8-15.2) gm/dl Hct 30.3 L (35.5-45.6) % MCV 97 H (84-94) fl RDW 15.5 H (13.2-15.2) % Eos % (Auto) 8.6 H (0.0-4.3) % Eos # 0.7 H (0.0-0.4) K/mm3 INR 1.15 H (0.87-1.13) APTT 37.6 H (24.2-36.6) Sec. Chloride 96.7 L (98-107) mmol/L BUN 33 H (9-20) mg/dL Creatinine 7.3 H (0.8-1.5) mg/dL Phosphorus 5.8 H (2.5-4.5) mg/dL ALT < 5 L (7-56) units/L Total Protein 6.1 L (6.3-8.2) g/dL Albumin 3.5 L (3.9-5) g/dL
--- NOTE | 2016-10-28 16:08 | Progress Note ---
Assessment and Plan Impression: * End stage renal disease on dialysis MWF * Enterococcal bacteremia * Anemia secondary to ESRD * Secondary hyperparathyroidism Plan: * Continue hemodialysis; will change to MWF schedule next week * UF as tolerated * Abx per ID - Ampicillin cannot be administered at outpt dialysis clinic due to frequency in dosing - discussed with Dr. Gaines * Renal diet * Binders with meals Subjective Date of service: 10/28/16 Principal diagnosis: Enterococcus bacteremia; endocarditis Interval history: Patient has no complaints today Objective - Vital Signs Vital signs: Vital Signs - 12hr 10/28/16 10/28/16 10/28/16 08:00 10:00 11:55 Temperature 97.5 F L 97.6 F Pulse Rate 87 Pulse Rate [ 92 H Left Radial] Respiratory 18 20 Rate Blood Pressure 105/56 Blood Pressure 96/54 [Right Thigh] O2 Sat by Pulse 98 97 Oximetry 10/28/16 10/28/16 10/28/16 12:11 12:15 12:30 Temperature 97.5 F L Pulse Rate 87 82 Pulse Rate [ 83 Left Radial] Respiratory 18 Rate Blood Pressure 112/71 105/63 Blood Pressure 107/55 [Right Thigh] O2 Sat by Pulse 98 Oximetry 10/28/16 10/28/16 10/28/16 12:45 13:00 13:15 Temperature Pulse Rate 82 105 H 76 Pulse Rate [ Left Radial] Respiratory Rate Blood Pressure 121/72 131/64 130/72 Blood Pressure [Right Thigh] O2 Sat by Pulse Oximetry 10/28/16 10/28/16 10/28/16 13:30 13:45 14:00 Temperature Pulse Rate 91 H 83 97 H Pulse Rate [ Left Radial] Respiratory Rate Blood Pressure 79/41 118/64 118/64 Blood Pressure [Right Thigh] O2 Sat by Pulse Oximetry 10/28/16 10/28/16 10/28/16 14:15 14:30 14:45 Temperature Pulse Rate 108 H 95 H 95 H Pulse Rate [ Left Radial] Respiratory Rate Blood Pressure 72/60 87/30 99/38 Blood Pressure [Right Thigh] O2 Sat by Pulse Oximetry 10/28/16 10/28/16 15:00 15:15 Temperature Pulse Rate 93 H 91 H Pulse Rate [ Left Radial] Respiratory Rate Blood Pressure 71/42 78/44 Blood Pressure [Right Thigh] O2 Sat by Pulse Oximetry - General Appearance General appearance: well-developed, well-nourished EENT: ATNC Respiratory: Present: Clear to Ascultation Cardiology: regular, S1S2 Gastrointestinal: normal Integumentary: no rash Neurologic: no focal deficit Musculoskeletal: other (no edema) Psychiatric: mood/affect appropriate, cooperative - Lab 10/27/16 15:44 10/27/16 15:44 Most recent lab results Calcium 9.2 mg/dL (8.4-10.2) 10/27/16 15:44 Phosphorus 5.8 mg/dL (2.5-4.5) H 10/27/16 15:44
--- NOTE | 2016-10-28 17:16 | Event Note ---
Date: 10/28/[address] Leonard and Dr. Rosales. After discussion, ID recommended vancomycin 1 gram IV dosing at time of dialysis (3x/week) for 4 weeks. They would prefer ampicillin but patient's ESRD/ limited access makes this difficult. Plan to discharge tomorrow with vancomycin administration at
[2016-10-28] MEDS: NORCO 5/325 PO PRN (17:56)
[2016-10-28] MEDS ORDERED: VANCOMYCIN VIAL 1,500 MG in NACL 0.9% 500 ML 500 ML IV ONE (18:00)
[2016-10-28] MEDS ORDERED: VANCOMYCIN PHARMACY TO DOSE IV SCH (18:00)
[2016-10-28] MEDS: MIRAPEX PO SCH (21:04)
[2016-10-28] MEDS: DESYREL PO SCH (21:05)
[2016-10-28] MEDS: FLEXERIL PO SCH (21:05)
[2016-10-28] MEDS: AMBIEN PO SCH (21:05)
[2016-10-29] MEDS: DILAUDID IV PRN ×2 (04:06→10:52)
[2016-10-29 07:42] LABS: Hematocrit 28.1 % (35.5-45.6); Hemoglobin 9.3 gm/dl (11.8-15.2)
[2016-10-29] MEDS: NEURONTIN PO SCH (08:18)
[2016-10-29] MEDS: PROAMATINE PO SCH (09:13)
[2016-10-29] MEDS: SODIUM BICARBONATE PO SCH (09:13)
[2016-10-29] MEDS: ROCALTROL PO SCH (09:13)
[2016-10-29] MEDS: PLAVIX PO SCH (09:13)
[2016-10-29] MEDS: OxyCONTIN PO SCH (09:15)
[2016-10-29] MEDS: FOLVITE PO SCH (09:15)
[2016-10-29] MEDS: PROTONIX PO SCH (09:15)
[2016-10-29] MEDS: TESSALON PERLES PO SCH (09:15)
[2016-10-29] MEDS: LOPID PO SCH (09:16)
--- NOTE | 2016-10-29 11:33 | Progress Note ---
Assessment and Plan Current antibiotics: Vancomycin IV ( 10/28 -> Previous Antibiotics: Ampicillin 2 g IV every 12 10/17 - 10/29 Cefazolin preop 10/24 Vancomycin 10/15-10/17 Zosyn 10/15-10/16 Levaquin 10/15-10/16 ASSESSMENT: Edward Del Cid is a 45 year old man with ESRD (polycystic kidney disease) , left arm HERO graft placed 2 weeks ago, left chest wall power port, and right chest wall permacath who presented to [facility] on 10/15/16 with shaking chills and fevers and was found to have Enterococcus faecalis bacteremia with positive blood cultures on 10/15, 10/16 and 10/17. Blood cultures on 10/18, 10/19 negative. ARLENE showed a mobile mass in the right atrium thought to be related to catheter. He did have the right chest wall permacath changed over a guide wire on 10/21/16. Patient was transferred to have the HERO cath declotted and he underwent angioplasty and thrombectomy by Dr. Blankenship on . Problem list: 1 Enterococcus faecalis bacteremia -Blood cultures +10/15, 10/16, 10/17 -10/18 10/19, 10/24 - no growth so far -Likely initially secondary to an infected permacath that was exchanged on -Port catheter tip - negative -10/27 -Endocarditis with mobile right atrium masses still seen on repeat ARLENE 10/26 2. Leukocytosis -Resolved -Initially was 20.1 3. History of Enterococcus bacteremia in 05/2015 treated with 4 weeks of IV ampicillin 4. History of MRSA colonization 5) HERO graft thrombus s/p angioplasty on 10/24/16 PLAN: 1. To allow for outpatient management, patient now on IV vancomycin. 2. Plan 6 week course. 3. Will make sure vancomycin is ordered through the patient's dialysis center by Dr. Leonard. 4. Can follow-up otherwise in our office. Subjective Date of service: 10/29/16 Principal diagnosis: Enterococcus bacteremia; endocarditis Interval history: Patient is upset about not being discharged yesterday. Can have IV vancomycin at dialysis. Objective - Exam Narrative Exam: Alert. No distress. HEENT: Pupils are equal reactive to light and accommodation. Conjunctiva clear. Oropharynx is normal with no evidence of oral candidiasis or pharyngitis. NECK: Supple. No enlargement of the thyroid gland. No significant cervical lymphadenopathy. No jugular venous distention at 30. LUNGS: Clear with no adventitious sounds. Right chest wall catheter site clean. Previous port site without redness. HEART: Regular rate. S1 and S2 are normal. Soft systolic murmur along the left sternal border. No diastolic murmur. ABDOMEN: Soft and nontender. Liver and spleen are not palpably enlarged or tender. No palpable masses. Bowel sounds are normoactive. EXTREMITIES: No rash, peripheral lymphadenopathy, clubbing or edema. LUE with positive thrill and bruit. SKIN: No other rash, ulcers or wounds. NEUROLOGIC: No focal findings. - Constitutional Vitals: Vital Signs Temp Pulse Resp BP Pulse Ox 97.2 F L 82 20 95/55 97 10/29/16 08:02 10/29/16 08:02 10/29/16 08:02 10/29/16 08:02 10/29/16 08:02 Temperature -Last 24 Hours Temperature 97.2 F Temperature 98.7 F Temperature 97.8 F Temperature 97.6 F Temperature 98.0 F Temperature 97.6 F Temperature 97.5 F Temperature 97.6 F - Labs CBC & Chem 7: 10/29/16 06:58 10/27/16 15:44 Labs: Abnormal lab results 10/29/16 Range/Units 06:58 Hgb 9.3 L (11.8-15.2) gm/dl Hct 28.1 L (35.5-45.6) %
--- NOTE | 2016-10-29 11:51 | Progress Note ---
Assessment and Plan Impression: * End stage renal disease on dialysis MWF * Enterococcal bacteremia * Mobile right atrium masses - repeat ARLENE 10/26 * HERO graft thrombus s/p angioplasty on 10/24/16 * Anemia secondary to ESRD * Secondary hyperparathyroidism Plan: * Continue hemodialysis; will change to MWF schedule next week if patient remains hospitalized * UF as tolerated * Abx per ID -6week course of Vanco * Renal diet * Binders with meals Subjective Date of service: 10/29/16 Principal diagnosis: Enterococcus bacteremia; endocarditis Objective - Vital Signs Vital signs: Vital Signs - 12hr 10/28/16 10/29/16 10/29/16 23:52 04:42 08:02 Temperature 97.8 F 98.7 F 97.2 F L Pulse Rate [ 89 90 82 Femoral] Respiratory 18 20 20 Rate Blood Pressure 91/51 118/57 95/55 [Right Thigh] O2 Sat by Pulse 98 100 97 Oximetry - Lab 10/29/16 06:58 10/27/16 15:44 Most recent lab results Calcium 9.2 mg/dL (8.4-10.2) 10/27/16 15:44 Phosphorus 5.8 mg/dL (2.5-4.5) H 10/27/16 15:44
--- NOTE | 2016-10-29 12:44 | Progress Note ---
Assessment and Plan - Patient Problems (1) Port or reservoir infection Current Visit: Yes Status: Acute Plan to address problem: Cardiac status is stable, continue antibiotic therapy for Port-A-Cath infection and vegetation. Subjective Date of service: 10/29/16 Principal diagnosis: Enterococcus bacteremia; endocarditis Interval history: Patient looks and feels comfortable, no acute distress. No cardiac complaints. Objective Vital Signs Temp Pulse Pulse Pulse Resp BP BP 10/29/16 08:02 97.2 F L 82 20 95/55 10/29/16 04:42 98.7 F 90 20 118/57 10/28/16 23:52 97.8 F 89 18 91/51 10/28/16 22:00 89 20 10/28/16 21:00 10/28/16 20:24 97.6 F 93 H 98 H 88/51 10/28/16 18:00 98.0 F 92 H 18 96/48 10/28/16 15:45 97.6 F 92 H 16 89/62 10/28/16 15:15 91 H 78/44 10/28/16 15:00 93 H 71/42 10/28/16 14:45 95 H 99/38 10/28/16 14:30 95 H 87/30 10/28/16 14:15 108 H 72/60 10/28/16 14:00 97 H 118/64 10/28/16 13:45 83 118/64 10/28/16 13:30 91 H 79/41 10/28/16 13:15 76 130/72 10/28/16 13:00 105 H 131/64 10/28/16 12:45 82 121/72 Pulse Ox 10/29/16 08:02 97 10/29/16 04:42 100 10/28/16 23:52 98 10/28/16 22:00 100 10/28/16 21:00 85 10/28/16 20:24 98 10/28/16 18:00 97 10/28/16 15:45 10/28/16 15:15 10/28/16 15:00 10/28/16 14:45 10/28/16 14:30 10/28/16 14:15 10/28/16 14:00 10/28/16 13:45 10/28/16 13:30 10/28/16 13:15 10/28/16 13:00 10/28/16 12:45 - Physical Examination General: No Apparent Distress HEENT: Positive: PERRL Neck: Positive: neck supple Cardiac: Positive: Reg Rate and Rhythm Lungs: Positive: Decreased Breath Sounds Neuro: Positive: Grossly Intact Abdomen: Positive: Soft Skin: Positive: Clear Extremities: Absent: edema - Labs and Meds CBC 10/29/16 Range/Units 06:58 Hgb 9.3 L (11.8-15.2) gm/dl Hct 28.1 L (35.5-45.6) % Plt Count 287 (140-440) K/mm3
[2016-10-29 12:45] VITALS: BP 92/55
--- NOTE | 2016-10-30 11:31 | Vascular Lab Report ---
FISTULA DUPLEX EXAM: REASON FOR EXAM: AVF malfunction with ESRD. NOTE: THE FISTULA IS LOCATED IN THE there UPPER EXTREMITY. COMMENTS ON THE FISTULA: This is a right heel artery inflow to superior vena cava outlflow HERO graft. Morphologicaly, there is no large pseudoaneurysms. There is no velocity gradient to suggest focal stenosis. COMMENTS ON THE INFLOW: The inflow velocity is 127 cm/s which is adequate. The brachial artery is 186 cm/s which is adequate. COMMENTS ON THE OUTFLOW: The venous outflow is 143 cm/s which is adequate. The volume is 729 mL/min which is optimal. IMPRESSION: No evidence of focal stenosis. The volume passing through the graft is adequate.
== END 2016-10-29 14:20 | disposition home health service (06) | DRG 252 ==
LOC: UNDOADMIN 14:50 → 3A 14:50
PROVIDERS: ADMIT Surgery Vascular Surgery; ATTEND Surgery Vascular Surgery
PROC: B51W1ZZ Fluoroscopy of Dialysis Shunt/Fistula using Low Osmolar Contrast (ICD-10-PCS; principal; 2016-10-24)
PROC: 03C63ZZ Extirpation of Matter from Left Axillary Artery, Percutaneous Approach (ICD-10-PCS; 2016-10-24)
PROC: 03C83ZZ Extirpation of Matter from Left Brachial Artery, Percutaneous Approach (ICD-10-PCS; 2016-10-24)
PROC: 03763ZZ Dilation of Left Axillary Artery, Percutaneous Approach (ICD-10-PCS; 2016-10-24)
PROC: 03783ZZ Dilation of Left Brachial Artery, Percutaneous Approach (ICD-10-PCS; 2016-10-24)
PROC: 3E05317 Introduction of Other Thrombolytic into Peripheral Artery, Percutaneous Approach (ICD-10-PCS; 2016-10-24)
PROC: 0JPT0XZ Removal of Tunneled Vascular Access Device from Trunk Subcutaneous Tissue and Fascia, Open Approach (ICD-10-PCS; 2016-10-27)
DX: T82.868A Thrombosis due to vascular prosthetic devices, implants and grafts, initial encounter (principal); N18.6 End stage renal disease; T80.212A Local infection due to central venous catheter, initial encounter; N25.81 Secondary hyperparathyroidism of renal origin; I38 Endocarditis, valve unspecified; I82.C13 Acute embolism and thrombosis of internal jugular vein, bilateral; I82.B13 Acute embolism and thrombosis of subclavian vein, bilateral; Z68.41 Body mass index [BMI] 40.0-44.9, adult; Q61.3 Polycystic kidney, unspecified; B95.2 Enterococcus as the cause of diseases classified elsewhere; D63.1 Anemia in chronic kidney disease; E66.01 Morbid (severe) obesity due to excess calories; I95.89 Other hypotension; G62.89 Other specified polyneuropathies; M19.90 Unspecified osteoarthritis, unspecified site; D72.829 Elevated white blood cell count, unspecified; R01.1 Cardiac murmur, unspecified; I73.9 Peripheral vascular disease, unspecified; K21.9 Gastro-esophageal reflux disease without esophagitis; Z88.8 Allergy status to other drugs, medicaments and biological substances; Z90.5 Acquired absence of kidney; Z79.899 Other long term (current) drug therapy; Z79.02 Long term (current) use of antithrombotics/antiplatelets; Z99.2 Dependence on renal dialysis; Z98.890 Other specified postprocedural states; Z98.62 Peripheral vascular angioplasty status; Z82.71 Family history of polycystic kidney
CPT/HCPCS: 36415; 36590; 36905; 76937; 80048; 80053; 84100; 85014; 85018; 85025; 85049; 85610; 85730; 87040; 87116; 93312; 93320; 93325; 93990; 94760; C1725; C1751; C1757; C1769; C1894; J0153; J0290; J0690; J1170; J1644; J2250; J2370; J2405; J2704; J2997; J3010; J3370; J7030; J7040; J7050; Q9967

== ENCOUNTER 2016-12-04 05:47 | Day surgery (SDC) | payer MEDICARE, OTHER ==
[2016-12-04] MEDS ORDERED: ANCEF/STERILE WATER 2 GM/20 ML 2 GM/20 ML SYRINGE IV NR (06:00)
[2016-12-04] MEDS ORDERED: NACL 0.9% 1000 ML 1,000 ML IV SCH (06:00)
[2016-12-04 08:01] LABS: INR 1.25 (0.87-1.13)
[2016-12-04] MEDS ORDERED: SUBLIMAZE ONE ×2 (08:29→08:31)
[2016-12-04] MEDS ORDERED: VERSED ONE (08:29)
[2016-12-04] MEDS ORDERED: DIPRIVAN 10 MG/ML IV ONE ×5 (08:29→08:32)
[2016-12-04] MEDS ORDERED: XYLOCAINE MPF 2% ONE (08:30)
[2016-12-04] MEDS ORDERED: NACL 0.9% 1000 ML 1,000 ML ONE (08:54)
[2016-12-04] MEDS ORDERED: ANCEF/STERILE WATER 2 GM/20 ML 2 GM/20 ML SYRINGE IV ONE (08:54)
[2016-12-04] MEDS ORDERED: HEPARIN/NS 5000 UNIT/500ML(CATH LAB) 500 ML IR ONE (08:55)
--- NOTE | 2016-12-04 08:57 | Anesthesia Consultation ---
Anesthesia Consult and Med Hx Date of service: 12/04/16 - Airway Anesthetic Teeth Evaluation: Poor ROM Head & Neck: Adequate Mental/Hyoid Distance: Adequate Mallampati Class: Class III Intubation Access Assessment: Probably Good - Pulmonary Exam CTA: Yes - Cardiac Exam Cardiac Exam: RRR - Pre-Operative Health Status ASA Pre-Surgery Classification: ASA4 Proposed Anesthetic Plan: MAC - Pre-Anesthesia Comment Pre-Anesthesia Comments: Patient has a "rare" clotting disorder; patient unsure of what this clotting disorder is. Currently taking plavix told not to stop. PT : 15.6, INR: 1.25, APTT: 37. K: 4.9 - Pulmonary Hx Smoking: No Hx Asthma: No SOB: Yes (Wears O2 at home 2L; WHEN FLUID OVERLOAD) COPD: No Hx Pneumonia: No Hx Sleep Apnea: Yes (DX SLEEP APNEA, NO CPAP USE) - Cardiovascular System Hx Hypertension: No Hx Heart Murmur: Yes (CAUSES NO PROBLEMS) Hx Peripheral Vascular Disease: Yes (JESSIE ARM AND LEGS; unknown clotting disorder - currently on plavix) - Central Nervous System Hx Seizures: Yes (last sz 10 years ago; no longer taking meds) Hx Back Pain: Yes (CHRONIC/SPINAL CORD STIMULATOR) Hx Psychiatric Problems: Yes - Gastrointestinal Hx Ulcer: No Hx Gastroesophageal Reflux Disease: Yes (meds qday) - Endocrine 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
--- NOTE | 2016-12-04 08:59 | Anesthesia Day of Surgery ---
Anesthesia Day of Surgery - Day of Surgery Patient Examined: Yes Patient H&P Reviewed: Yes Patient is NPO: Yes Beta Blockers: No Cardiac Clearance: No Pulmonary Clearance: No
[2016-12-04] MEDS ORDERED: NACL 0.9% 100 ML ONE (09:01)
[2016-12-04] MEDS: XYLOCAINE 2% INFILTRATI ONE ×3 (09:19→09:34)
[2016-12-04] MEDS: HEPARIN 10,000 UNITS/10 ML ONE ×3 (09:34→09:41)
--- NOTE | 2016-12-04 09:49 | Short Stay Summary ---
Short Stay Documentation Date of service: 12/04/16 - History Principal diagnosis: ESRD H&P: obtained from office - Allergies and Medications Current Medications: Allergies levetiracetam [From Keppra] Allergy (Verified 05/03/15 10:34) Hives nalbuphine HCl [From Nubain] Adverse Reaction (Verified 05/03/15 10:34) Unknown Home Medications Medication Instructions Recorded Confirmed Last Taken Type Cyclobenzaprine HCl [Flexeril] 10 mg PO QHS 06/08/15 12/04/16 12/03/16 History 75mg Calcitriol [Rocaltrol] 0.25 mcg PO QDAY #30 capsule 09/29/15 12/04/16 12/03/16 Rx 0.25mcg Gemfibrozil [Lopid] 600 mg PO BID #60 tablet 09/29/15 12/04/16 12/03/16 Rx 600mg Gabapentin [Neurontin] 100 mg PO TID 08/16/16 12/04/16 12/03/16 History 100mg Sodium Bicarbonate 650 mg PO BID 08/22/16 12/04/16 12/03/16 History 650mg diphenhydrAMINE [Benadryl CAP] 50 mg PO BID 08/22/16 12/04/16 12/03/16 History 50mg Zolpidem [Ambien] 5 mg PO QHS 08/23/16 12/04/16 12/03/16 History 5mg traZODone [Desyrel] 50 mg PO QHS 08/23/16 12/04/16 12/03/16 History 50mg Pantoprazole [Protonix TAB] 40 mg PO QDAY 09/14/16 12/04/16 12/03/16 History 40mg Pramipexole [Mirapex] 0.5 mg PO QHS 09/14/16 12/04/16 12/03/16 History 0.5mg Benzonatate [Tessalon Perles] 100 mg PO BID 10/25/16 12/04/16 12/03/16 History 100mg Clopidogrel [Plavix] 75 mg PO DAILY 10/25/16 12/04/16 12/03/16 History 75mg Folic Acid 1 mg PO BID 10/25/16 12/04/16 12/03/16 History 1mg Midodrine [Proamatine] 10 mg PO QAM 10/25/16 12/04/16 12/03/16 History 10mg Oxycodone HCl/Acetaminophen 1 tab PO TID 12/04/16 12/04/16 12/03/16 History [Percocet 7.5/325 mg] 1 tab traZODone [Desyrel] 50 mg PO HS 12/04/16 12/04/16 12/03/16 History 50mg valACYclovir [Valtrex] 500 mg PO DAILY 12/04/16 12/04/16 12/03/16 History 500mg Active Medications Cefazolin Sodium (Ancef/Sterile Water 2 Gm/20 Ml) 2 gm in 20 mls @ 80 mls/hr IV PREOP NR PRN Reason: Protocol Stop: 12/04/16 23:59 Last Admin: 12/04/16 08:55 Dose: 20 mls - Brief post op/procedure progress note Date of procedure: 12/04/16 Pre-op diagnosis: ESRD Post-op diagnosis: same Procedure: Right IJV permcath Anesthesia: MAC Surgeon: SAVAGE WEISS Estimated blood loss: minimal Pathology: none Condition: stable - Disposition Condition at discharge: Good Disposition: DISCHARGED TO HOME OR SELFCARE Short Stay Discharge Plan Activity: advance as tolerated Weight Bearing Status: Weight Bear as Tolerated Diet: regular Wound: keep clean and dry, per your surgeon's advice Follow up with: BHARATH FELICIANO MD [Primary Care Provider] - 7 Days
--- NOTE | 2016-12-04 09:52 | Operative Report ---
Operative Report Operative Report: EXAM: ULTRASOUND AND FLUOROSCOPIC GUIDED PLACEMENT OF TUNNELED HEMODIALYSIS CATHETER CLINICAL INDICATION: PATIENT WITH A HISTORY OF END-STAGE RENAL DISEASE WITH A FUNCTIONING FISTULA WHO DEVELOPED SHINGLES OVER HIS FISTULA DATE: 12/04/2016 PROCEDURE: Following an explanation of the risks, benefits and alternatives; written informed consent was obtained. The patient was brought to the angiographic suite and placed in supine position on the examination table. Initial ultrasound evaluation of his neck demonstrated a patent internal jugular vein proximally. The right neck and chest wall were prepped and draped in the usual sterile fashion. 1% lidocaine was used for anesthesia. Under ultrasound guidance, the right internal jugular vein was cannulated with a 7 cm 18-gauge needle. A 0.035 guidewire was then advanced centrally. The guidewire would not make it past the distal internal jugular vein. The needle was removed and a micro-sheath placed over the guidewire. The guidewire was exchanged for a 0.035 Glidewire which was manipulated through the tortuous distal internal jugular vein. The guidewire was advanced into the right hepatic vein to document intravenous positioning. An appropriate catheter exit site was chosen along the anterior lateral right chest wall. 1% lidocaine was used for anesthesia at the catheter exit site along the tunnel tract. A Bard 23 cm tunneled hemodialysis catheter was then tunneled antegrade from the catheter exit site to the venotomy site. The path of the catheter transected a small chest wall collateral. Following serial dilation over the guidewire under fluoroscopy, a 16 Salvadorean peel -away sheath was placed over the guidewire under fluoroscopy and advanced to the proximal right atrium. The trocar and guidewire were removed. The catheter was then advanced through the peel-away sheath and positioned with the tip in the proximal right atrium. Both ports flushed and aspirated easily and were then locked with appropriate volumes of heparin. The venotomy was closed using 4-0 Vicryl suture. 2-0 Ethilon was applied to the catheter exit site in addition, a retention suture of 2-0 Ethilon was placed at the midportion of the tunnel tract to occlude the transected chest wall collateral. Dermabond and sterile dressings were then applied. The patient tolerated the procedure well. There were no immediate post procedure competitions. Conscious sedation was performed under the guidance of anesthesia services. Continuous cardiopulmonary monitoring was utilized. IMPRESSION: 1) Ultrasound and fluoroscopic guided placement of tunneled hemodialysis catheter via the right internal jugular vein.
--- NOTE | 2016-12-04 11:31 | XRay Report ---
RIGHT ANKLE RADIOGRAPHS INDICATION: Fall. COMPARISON: 05/20/2012. FINDINGS: AP, lateral and oblique right ankle radiographs demonstrate new mild lateral soft tissue swelling. Intact ankle mortise with normal talar dome contour. Extensive atherosclerotic calcifications again noted as also moderate dorsal and plantar calcaneal and midfoot spurring. Ossification slightly inferior to the medial malleolus again noted, now approximately 0.9 cm. CONCLUSION: Right ankle soft tissue swelling/injury suspected without acute bony abnormality. Various degenerative changes again noted, as described. Thank you for the opportunity to participate in this patient's care.
[2016-12-04 13:03] VITALS: BP 73/34
--- NOTE | 2016-12-05 13:44 | Vascular Lab Report ---
MISCELLANEOUS VESSEL IDENTIFICATION: COMMENTS ON THE SCAN: The right external jugular vein was identified and under real-time ultrasound guidance was cannulated. IMPRESSION: Successful ultrasound guided vein cannulation.
== END 2016-12-04 11:33 | disposition home or self-care (01) ==
LOC: OPU 05:47
PROVIDERS: ATTEND Radiology Diagnostic Radiology
DX: T82.7XXA Infection and inflammatory reaction due to other cardiac and vascular devices, implants and grafts, initial encounter (principal); B02.9 Zoster without complications; N18.6 End stage renal disease; D64.9 Anemia, unspecified; F32.9 Major depressive disorder, single episode, unspecified; K21.9 Gastro-esophageal reflux disease without esophagitis; E03.9 Hypothyroidism, unspecified; M19.90 Unspecified osteoarthritis, unspecified site; E66.01 Morbid (severe) obesity due to excess calories; Z68.41 Body mass index [BMI] 40.0-44.9, adult; Z99.2 Dependence on renal dialysis; Z98.890 Other specified postprocedural states; Z79.899 Other long term (current) drug therapy; Y83.2 Surgical operation with anastomosis, bypass or graft as the cause of abnormal reaction of the patient, or of later complication, without mention of misadventure at the time of the procedure
CPT/HCPCS: 36415; 36558; 73610; 76937; 77001; 84132; 85610; 85730; C1750; C1769; J0690; J1644; J2250; J2704; J7030; J3010; Q9967

== ENCOUNTER 2016-12-13 06:44 | Inpatient (IN) | payer MEDICARE, OTHER ==
[2016-12-13] MEDS ORDERED: HEPARIN 10,000 UNITS/10 ML ONE (08:12)
[2016-12-13] MEDS ORDERED: HEPARIN/NS 5000 UNIT/500ML(CATH LAB) 500 ML IR ONE ×2 (08:12→11:14)
[2016-12-13] MEDS ORDERED: NACL 0.9% 500 ML 0 ML ONE (08:12)
[2016-12-13] MEDS ORDERED: ANCEF/STERILE WATER 2 GM/20 ML 2 GM/20 ML SYRINGE IV ONE (08:13)
[2016-12-13] MEDS ORDERED: KIONEX PO ONE (09:37)
[2016-12-13] MEDS ORDERED: D50W (25GM) IV ONE ×2 (09:39)
--- NOTE | 2016-12-13 09:49 | Anesthesia Consultation ---
Anesthesia Consult and Med Hx Date of service: 12/13/16 - Airway Anesthetic Teeth Evaluation: Dentures ROM Head & Neck: Adequate Mental/Hyoid Distance: Adequate Mallampati Class: Class II Intubation Access Assessment: Probably Good - Pulmonary Exam CTA: Yes - Cardiac Exam Cardiac Exam: RRR - Pre-Operative Health Status ASA Pre-Surgery Classification: ASA4 Proposed Anesthetic Plan: MAC - Pulmonary Hx Smoking: No Hx Asthma: No SOB: Yes (Wears O2 at home 2L; WHEN FLUID OVERLOAD) COPD: No Hx Pneumonia: No Hx Sleep Apnea: Yes (DX SLEEP APNEA, NO CPAP USE) - Cardiovascular System Hx Hypertension: No Hx Heart Murmur: Yes (CAUSES NO PROBLEMS) Hx Peripheral Vascular Disease: Yes (JESSIE ARM AND LEGS; unknown clotting disorder - currently on plavix) - Central Nervous System Hx Seizures: Yes (last sz 10 years ago; no longer taking meds) Hx Back Pain: Yes (CHRONIC/SPINAL CORD STIMULATOR) Hx Psychiatric Problems: Yes - Gastrointestinal Hx Ulcer: No Hx Gastroesophageal Reflux Disease: Yes (meds qday) - Endocrine 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
--- NOTE | 2016-12-13 09:50 | Anesthesia Day of Surgery ---
Anesthesia Day of Surgery - Day of Surgery Patient Examined: Yes Patient H&P Reviewed: Yes Patient is NPO: Yes
[2016-12-13] MEDS ORDERED: XYLOCAINE 1%/ EPI 1:100,000 INFILTRATI ONE (10:11)
[2016-12-13] MEDS ORDERED: ePHEDrine SULFATE ONE (10:22)
[2016-12-13] MEDS ORDERED: TORADOL ONE (10:22)
[2016-12-13] MEDS ORDERED: XYLOCAINE MPF 2% ONE (10:22)
[2016-12-13] MEDS ORDERED: NEO SYNEPHRINE/NS Syringe(OR USE) IV ONE (10:22)
[2016-12-13] MEDS ORDERED: WATER FOR INJ (PF) 10 ML ONE (10:50)
[2016-12-13] MEDS ORDERED: CATHFLO ONE (10:51)
[2016-12-13] MEDS: XYLOCAINE 2% INFILTRATI ONE ×3 (10:57→12:15)
[2016-12-13] MEDS ORDERED: VERSED ONE (11:11)
[2016-12-13] MEDS ORDERED: DILAUDID ONE (11:11)
[2016-12-13] MEDS ORDERED: DIPRIVAN 10 MG/ML IV ONE ×5 (11:11→13:22)
[2016-12-13] MEDS ORDERED: KETALAR IV ONE (14:00)
[2016-12-13] MEDS ORDERED: VERSED IV ONE (14:00)
--- NOTE | 2016-12-13 15:40 | Short Stay Summary ---
Short Stay Documentation Date of service: 12/13/16 Narrative H&P: 46-year-old male with thrombosed left upper extremity HERO graft with end-stage renal disease. - History H&P: obtained from office - Allergies and Medications Current Medications: Allergies levetiracetam [From Keppra] Allergy (Verified 05/03/15 10:34) Hives nalbuphine HCl [From Nubain] Adverse Reaction (Verified 05/03/15 10:34) Unknown Home Medications Medication Instructions Recorded Confirmed Last Taken Type Cyclobenzaprine HCl [Flexeril] 10 mg PO QHS 06/08/15 12/13/16 12/12/16 History 10mg Calcitriol [Rocaltrol] 0.25 mcg PO QDAY #30 capsule 09/29/15 12/13/16 12/12/16 Rx .25mg Gemfibrozil [Lopid] 600 mg PO BID #60 tablet 09/29/15 12/13/16 12/13/16 04:00 Rx Gabapentin [Neurontin] 100 mg PO TID 08/16/16 12/13/16 12/13/16 04:00 History Sodium Bicarbonate 650 mg PO BID 08/22/16 12/13/16 12/13/16 04:00 History 650mg diphenhydrAMINE [Benadryl CAP] 50 mg PO BID 08/22/16 12/13/16 12/12/16 History 50mg Zolpidem [Ambien] 5 mg PO QHS 08/23/16 12/13/16 12/12/16 History 5mg traZODone [Desyrel] 50 mg PO QHS 08/23/16 12/13/16 12/12/16 History 50mg Pantoprazole [Protonix TAB] 40 mg PO QDAY 09/14/16 12/13/16 12/13/16 04:00 History Pramipexole [Mirapex] 0.5 mg PO QHS 09/14/16 12/13/16 12/13/16 04:00 History 0.5mg Benzonatate [Tessalon Perles] 100 mg PO BID 10/25/16 12/13/16 12/12/16 History 100mg Clopidogrel [Plavix] 75 mg PO DAILY 10/25/16 12/13/16 12/13/16 04:30 History Folic Acid 1 mg PO BID 10/25/16 12/13/16 12/13/16 04:00 History Midodrine [Proamatine] 10 mg PO QAM 10/25/16 12/13/16 12/13/16 04:00 History Oxycodone HCl/Acetaminophen 1 tab PO TID 12/04/16 12/13/16 12/12/16 History [Percocet 7.5/325 mg] 1 tab Active Medications Sodium Chloride (Nacl 0.9% 1000 Ml) 1,000 mls @ 42 mls/hr IV DIRECT KYRA - Physical exam General appearance: no acute distress Lungs: Normal air movement Gastrointestinal: normal Extremities: normal temperature, normal color, abnormal (thrombosed HERO GRAFT) - Brief post op/procedure progress note Date of procedure: 12/13/16 Pre-op diagnosis: ESRD Post-op diagnosis: same Procedure: thrombectomy Anesthesia: local Surgeon: SAVAGE CRISTOBAL Estimated blood loss: minimal Condition: stable - Hospital course Hospital course: Ready for discharge after procedure if cleared by nephrology given hyperkalemia. If admitted, this will be based on nephrology and hospitalist decision. Patient admitted after procedure for hyperkalemia (6.3) and need for dialysis. - Discharge Diagnoses (1) Hemodialysis graft malfunction Status: Acute Qualifiers: Encounter type: E Short Stay Discharge Plan Activity: advance as tolerated Weight Bearing Status: Weight Bear as Tolerated Diet: renal Wound: keep clean and dry Follow up with: BHARATH FELICIANO MD [Primary Care Provider] - 7 Days
[2016-12-13] MEDS ORDERED: PERCOCET 5/325 PO ONE (16:01)
--- NOTE | 2016-12-13 16:09 | Operative Report ---
Operative Report Operative Report: EXAM: 1. Ultrasound guided access of the AV graft towards the HERO limb. 2. Angioplasty of the HERO graft with a 6 mm angioplasty balloon 3. Infusion of 4 mg of TPA throughout the length of the graft 4. Trerotola thrombectomy of the AV graft 5. Anthony thrombectomy of the graft from the venous sheath to the IVC 6. Ultrasound guided access of the AV graft towards the arterial anastamosis. 7. Brachial artery selection with angiography 8. Anthony thrombectomy of the graft from the brachial artery to the arterial sheath 9. Angioplasty of the entirety of the graft with a 6 mm angioplasty balloon 10. Angioplasty of the arterial anastomosis with a 5 mm angioplasty balloon 11. Ultrasound guided access of the left common femoral vein 12. Selection of the IVC with venography 13. Angioplasty of the suprahepatic, intrahepatic and infrahepatic IVC with a 12 mm angioplasty balloon 14. Repeat Anthony thrombectomy of the AV graft from the brachial artery to the IVC with repeat angioplasty 15. Loop snare of the hero graft with extraction from the left hepatic vein and replacement into the IVC INDICATION: THROMBOSED LEFT ARM AV HERO GRAFT WITH END-STAGE RENAL DISEASE. DATE: 12/13/16 MEDICATIONS: Please refer to nursing documentation for complete list of medications and heparin administration. Anesthesia provided sedation for this case COMPLICATIONS: NONE IMMEDIATE DRILL PRESS OPERATOR: SAVAGE CRISTOBAL MD PROCEDURE: The procedure was discussed with the patient and the risks, benefits, and alternatives were discussed with the patient. Informed consent was obtained. The patient was transported into the angiography suite in stable condition and placed on the angiographic table. The left arm was assessed under real-time ultrasound which demonstrated a thrombosed left arm AV HERO graft. The patient was prepped and draped in a sterile fashion. Lidocaine was used to anesthetize the skin. Under ultrasound guidance, the left arm AV graft was punctured with the needle pointing towards the venous limb. 0.018 inch wire was advanced through the needle and this was exchanged for a transitional dilator. The inner dilator and wire were removed and a 0.035 inch Ibarra wire was advanced through the transitional dilator. The dilator was exchanged for a 7 Guyanese short sheath. Angled catheter was advanced over the wire and the wire was advanced into the HERO graft and into the inferior vena cava under fluoroscopic guidance. Unfortunately, the hero graft was positioned lower then is traditionally intended and the hero graft was in the IVC and not the right atrium. Digital subtraction angiography was performed in the IVC which demonstrated diminished flow through the intrahepatic portion of the IVC, for patency of the infrahepatic IVC. Omni flush catheter was then advanced over the wire and used to perform digital subtraction angiography which demonstrated some moderate narrowing of the intrahepatic portion of the IVC with patency of the infrahepatic portion of the IVC. Then the wire was removed and the Angled catheter was used to perform a pullback venogram demonstrating thrombosis of the entirety of the graft. 4 mg of TPA were infused through the length of the clot to the sheath as the arterial anastomosis was manually compressed. 6 mm angioplasty balloon was advanced over the wire and sequential angioplasty was performed throughout the entirety of the graft. Trerotola thrombectomy device was used multiple times through the venous limb. Trerotola device was then removed. Angled catheter and Ibarra wire were negotiated into the inferior vena cava. Catheter was exchanged for a Anthony which was used to sweep from the sheath to the central veins. The arm was then punctured towards the arterial anastomosis under ultrasound guidance. 0.018 inch wire was advanced through the needle and exchanged for transitional dilator. The inner dilator and wire were removed and a 0.035 inch wire was advanced to the transitional dilator. The dilator was exchanged for 6 Guyanese short sheath. The angled catheter was advanced over the 0.035 wire and the wire was advanced into the beaver brachial artery in a retrograde fashion. Digital subtraction angiography was performed which demonstrated patency of the brachial artery proximal and distal to the anastomosis with no flow through the graft. Anthony catheter was inflated and use to sweep the anastomosis multiple times, pulling the plug towards the venous limb. Anthony catheter was then used to sweep from the venous sheath to the IVC. Blood was aspirated from both sheaths. Anthony catheter was exchanged for the angled catheter and digital subtraction angiography was performed. This demonstrated patency of the brachial artery proximal and distal to the anastomosis and mild irregularity within the peripheral portion of the AV HERO graft. The hero graft was patent. Outflow into the IVC was limited and there appeared to be a fibrin sheath distal to the hero graft. Narrowing within the intrahepatic portion of the IVC noted. 12 mm angioplasty balloon was advanced over the wire and used to perform angioplasty in the IVC distal to the hero graft. Digital subtraction angiography demonstrated sluggish flow returning to the right atrium with narrowing of the intrahepatic and suprahepatic portion of the IVC. The infrahepatic IVC distal to the hero graft was patent. 6 mm angioplasty balloon was used to perform angioplasty of the irregular portion of the AV graft and the 5 mm angioplasty balloon was used to perform angioplasty of the arterial anastomosis. Digital subtraction angiography was performed in the brachial artery demonstrating thrombus again noted in the AV graft. Anthony thrombectomy was repeated at the arterial anastomosis with sweeping into the IVC again performed. 6 mm angioplasty balloon was used to perform angioplasty of the entirety of the hero graft again. Digital subtraction angiography was performed demonstrating resolution of the thrombus within the graft. There is still sluggish outflow into the intrahepatic portion of the IVC. Lidocaine was used to anesthetize the skin. Under ultrasound guidance, the left common femoral vein was punctured with the needle pointing towards the IVC. 0.018 inch wire was advanced through the needle and this was exchanged for a transitional dilator. The inner dilator and wire were removed and a 0.035 inch Ibarra wire was advanced through the transitional dilator. The dilator was exchanged for a 5 Guyanese sheath and then a 7 Guyanese sheath. Omni flush catheter was advanced over the wire and used to perform digital subtraction angiography and intrahepatic portion of the IVC confirming narrowing. 12 mm angioplasty balloon was then used to perform angioplasty around the hero graft in the suprahepatic, intrahepatic, and infrahepatic IVC. There is still narrowing in the intrahepatic portion of the IVC after angioplasty. Angioplasty was repeated, and the narrowing resolved in the IVC. Unfortunately, in the interim, the patient's blood pressure had dropped to the 80s due to sedation by anesthesia and the patient developed thrombus again within his graft. Anthony thrombectomy was performed throughout the length of the AV graft with sweeping towards the IVC. 6 mm angioplasty balloon was used to perform angioplasty throughout the entirety of the AV graft. Flow was restored again. During manipulation, the HERO graft flipped into the hepatic vein. This was corrected by pushing the hero graft back in to the IVC with a wire. Digital subtraction angiography was performed demonstrating no residual thrombus was in the hero graft with excellent flow within the graft. There is prompt outflow into the infrahepatic IVC which then promptly flowed into the intrahepatic IVC and suprahepatic IVC into the right atrium. The brachial artery proximal and distal to the graft was patent and the graft itself was patent. All wires and catheters were removed. When the wire within the hero graft was removed, the hero graft recoiled and flipped into a hepatic vein again. I could not push the hero graft out of the hepatic vein despite multiple attempts with multiple catheters and wires. I passed a 6-10 mm snare in the hepatic vein through the hero graft and I attempted to pass a wire through the left femoral access in an attempt snare the wire through the HERO graft and create a rail in order to dislodge the hero graft, but I could not select the hepatic vein as this hepatic vein was predominately occluded by the hero graft. I attempted with multiple catheters. Instead, I upsized the left common femoral vein sheath to a 12 Guyanese sheath and created a loop snare around the hero graft using a large ensnare (27-45 mm) device and an Omni flush catheter through the same access to pass a Ibarra wire through the ensnare around the hero graft. This enable me to create a loop snare around the HERO graft. I then pulled the HERO graft out of the hepatic vein and it into the IVC with the loop snare. Digital subtraction angiography through the hero graft demonstrated prompt flow into the IVC with prompt flow into the right atrium. All the wires were removed. 4-0 Vicryl sutures were used to close the fistula access sites. Dermabond was applied. Pressure was held until hemostasis was achieved. Left common femoral vein sheath was then removed and pressure was held until hemostasis was achieved. The patient was then transferred to the outpatient recovery area. FINDINGS: Please see the procedure note for the findings. IMPRESSION: 1. Successful pharmacomechanical thrombectomy of the thrombosed left AV graft. 2. Successful venoplasty of the HERO graft, arterial anastamosis, and the IVC. Successful loop snare of the HERO graft to extract it from a left hepatic vein. 3. Final imaging demonstrates no areas of focal stenosis within the AV graft on completion venography. There is no evidence of thrombus within the graft on completion venography.
[2016-12-13] MEDS ORDERED: NACL 0.9% 100 ML IV PRN ×2 (19:02→19:58)
[2016-12-13] MEDS ORDERED: HEPARIN IV PRN (19:58)
[2016-12-13] MEDS ORDERED: ZOFRAN IV PRN (21:28)
[2016-12-13] MEDS ORDERED: TYLENOL PO PRN (21:28)
[2016-12-13] MEDS ORDERED: MILK OF MAGNESIA PO PRN (21:28)
[2016-12-13] MEDS ORDERED: AMBIEN PO PRN (21:28)
[2016-12-13] MEDS ORDERED: DULCOLAX PR PRN (21:28)
--- NOTE | 2016-12-13 21:56 | Event Note ---
Date: 12/13/16 See H/p in reports Admitted for Hyperkalemia of 6.0 after Surgical procedure -HERO Graft for thrombosed fistula. Admitted as obs.
[2016-12-13] MEDS ORDERED: NON-FORMULARY (Folic Acid 1 MG) PO SCH (22:00)
[2016-12-13] MEDS ORDERED: TESSALON PERLES PO PRN (22:00)
[2016-12-13] MEDS ORDERED: PEPCID PO SCH (22:00)
--- NOTE | 2016-12-13 23:09 | History and Physical Report ---
CHIEF COMPLAINT: High potassium level. HISTORY OF PRESENT ILLNESS: A 46-year-old male with a history of end-stage renal disease, coronary artery disease, and hypotension, admitted from the PACU for high potassium level of 6.0. The patient had a thrombosed left upper extremity for which HeRO graft was done. Post-procedure, it was decided to admit the patient to floor for observation because of the high potassium level. PAST MEDICAL HISTORY: Significant for end-stage renal disease, dyslipidemia, peripheral neuropathy, coronary artery disease. CURRENT MEDICATIONS: Flexeril 10 mg p.o. at bedtime, Rocaltrol 0.25 mcg p.o. daily, Lopid 600 mg p.o. b.i.d., Neurontin 100 mg p.o. t.i.d., sodium bicarbonate 650 mg p.o. b.i.d., diphenhydramine 50 mg p.o. b.i.d., zolpidem 5 mg p.o. at bedtime, trazodone 50 mg p.o. at bedtime, Protonix 40 mg p.o. daily, Mirapex 0.5 mg p.o. at bedtime, Tessalon perles 100 mg p.o. b.i.d., Plavix 75 mg p.o. daily, folic acid 1 mg p.o. b.i.d., ProAmatine 10 mg p.o. daily, Percocet 7.5/325 p.o. t.i.d. FAMILY HISTORY: Significant for hypertension. PAST SURGICAL HISTORY: AV fistula and grafts. REVIEW OF SYSTEMS: A 14-point review of systems done, essentially negative. All systems are negative. PHYSICAL EXAMINATION: GENERAL: Young male, cooperative during examination. VITAL SIGNS: Blood pressure is 80/40, pulse is 100, temperature is 98, sats are 100%. HEENT: Unremarkable. Pupils equal and reactive. NECK: Supple, no lymphadenopathy, no thyromegaly. LUNGS: Clear to auscultation and percussion. Good air entry. CARDIOVASCULAR: S1, S2 heard. No gallop, no murmur, no rub. Apical impulse in left fifth intercostal space and midclavicular line. ABDOMEN: Soft and benign. No hepatosplenomegaly. No guarding, no rigidity. Hernial orifices are normal. EXTREMITIES: Good pedal pulses. No pedal edema. CENTRAL NERVOUS SYSTEM: Alert and oriented x 4. Nonfocal exam. SKIN: Normal. LABORATORY DATA: Significant for potassium of 6.3, glucose of . Other labs are not available. ASSESSMENT AND PLAN: 1. Hyperkalemia. The patient was given Kayexalate 30 grams in the PACU. I have repeated potassium as a stat. Order CBC and BMP. 2. Coronary artery disease. Plavix kept on hold because of surgical procedure. Plavix to receive at the time of discharge. 3. Muscle spasms. Continue Flexeril 10 mg at bedtime. 4. Peripheral neuropathy. Continue gabapentin 100 mg 3 times a day. 5. Gastroesophageal reflux disease. Continue Protonix 40 mg p.o. daily. 6. End-stage renal disease. Nephrology consulted. The patient may get dialysis this evening or tomorrow morning. DISCHARGE PLANNING ISSUES: The patient can be discharged after dialysis if the potassium is corrected. The patient admitted for observation status. JOB# [id number] OSVALDO/NTS
[2016-12-14 00:18] LABS: Basophils % (Auto) 0.5 % (0.0-1.8); Hematocrit 31.9 % (35.5-45.6); Hemoglobin 10.7 gm/dl (11.8-15.2); Mean Corpuscular HGB Conc 33 % (32-34); Mean Corpuscular Hemoglobin 33 pg (28-32); Mean Corpuscular Volume 99 fl (84-94); Platelet Count 200 K/mm3 (140-440); Red Blood Count 3.21 M/mm3 (3.65-5.03); Red Cell Distribution Width 19.9 % (13.2-15.2); White Blood Count 9.8 K/mm3 (4.5-11.0)
[2016-12-14 00:51] LABS: Alanine Aminotransferase 9 units/L (7-56); Albumin 3.4 g/dL (3.9-5); Albumin/Globulin Ratio 1.4 %; Alkaline Phosphatase 82 units/L (35-129); Anion Gap 18 mmol/L; BUN/Creatinine Ratio 5.35; Bilirubin,Total < 0.2 mg/dL (0.1-1.2); Blood Urea Nitrogen 30 mg/dL (9-20); Calcium 6.4 mg/dL (8.4-10.2); Carbon Dioxide 27 mmol/L (22-30); Chloride 94.7 mmol/L (98-107); Glucose 92 mg/dL (75-100); Potassium 3.9 mmol/L (3.6-5.0); Sodium 136 mmol/L (137-145); Total Protein 5.8 g/dL (6.3-8.2)
[2016-12-14] MEDS: ROCALTROL PO SCH ×2 (01:35→11:21)
[2016-12-14] MEDS: BENADRYL PO SCH ×3 (01:36→22:56)
[2016-12-14] MEDS: SODIUM BICARBONATE PO SCH ×3 (01:36→22:58)
[2016-12-14] MEDS: FLEXERIL PO SCH ×2 (01:37→22:58)
[2016-12-14] MEDS: DESYREL PO SCH ×2 (01:37→22:56)
[2016-12-14] MEDS: FOLVITE PO SCH ×3 (01:37→23:10)
[2016-12-14] MEDS: PROTONIX PO SCH ×2 (01:37→11:21)
[2016-12-14] MEDS: LOPID PO SCH ×3 (01:38→22:57)
[2016-12-14] MEDS: HEPARIN SUB-Q SCH ×3 (01:39→23:02)
[2016-12-14] MEDS: AMBIEN PO SCH ×2 (01:40→23:01)
[2016-12-14] MEDS: MIRAPEX PO SCH ×2 (01:43→22:59)
[2016-12-14] MEDS: DILAUDID IV PRN ×6 (02:06→23:00)
[2016-12-14] MEDS: NACL 0.9% 1000 ML 1,000 ML IV SCH (04:20)
[2016-12-14 06:22] LABS: Basophils % (Auto) 0.9 % (0.0-1.8); Eosinophils % (Auto) 4.1 % (0.0-4.3); Hematocrit 31.4 % (35.5-45.6); Hemoglobin 10.4 gm/dl (11.8-15.2); Mean Corpuscular HGB Conc 33 % (32-34); Mean Corpuscular Hemoglobin 33 pg (28-32); Mean Corpuscular Volume 100 fl (84-94); Platelet Count 187 K/mm3 (140-440); Red Blood Count 3.16 M/mm3 (3.65-5.03); Red Cell Distribution Width 19.8 % (13.2-15.2); White Blood Count 8.8 K/mm3 (4.5-11.0)
[2016-12-14 06:42] LABS: Albumin 3.3 g/dL (3.9-5); Albumin/Globulin Ratio 1.3 %; BUN/Creatinine Ratio 4.62; Bilirubin,Total 0.2 mg/dL (0.1-1.2); Calcium 6.9 mg/dL (8.4-10.2); Chloride 94.6 mmol/L (98-107); Potassium 5.1 mmol/L (3.6-5.0); Total Protein 5.8 g/dL (6.3-8.2)
--- NOTE | 2016-12-14 07:33 | Admit Criteria Form ---
Admission Criteria Documentation: HYPONATREMIA; HYPERNATREMIA; HYPOKALEMIA; HYPERKALEMIA; HYPOCALCEMIA; HYPERCALCEMIA Clinical Indications for Inpatient Care (Place 'X' for any and all applicable criteria): Ongoing inpatient care may be indicated for ANY ONE of the following [G](1)(2)(3 )(5): [ ]I. Hyponatremia with ANY ONE of the following: [ ]a) Sodium less than 130 mEq/L (mmol/L) (new) (6)(22) [ ]b) Sodium less than 135 mEq/L (mmol/L) with ANY ONE of the following: [ ]i) Severe medical etiology requiring inpatient management (eg, heart failure, hypovolemia) [ ]ii) Altered mental status [ ]iii) Seizures [ ]II. Hypernatremia with ANY ONE of the following: [ ]a) Sodium greater than 155 mEq/L (mmol/L) [ ]b) Sodium greater than 150 mEq/L (mmol/L) with ANY ONE of the following: [ ] i) Altered mental status [ ]ii) Seizures [ ]iii) Severe medical etiology (eg, hypovolemia, diabetes insipidus) [ ]iv) Severe weakness [ ]v) Severe medical etiology (eg, hemolysis, infection, drug overdose) [ ]III. Hypokalemia with ANY ONE of the following: [ ]a) Potassium less than 2.5 mEq/L (mmol/L) despite outpatient and emergency treatment [ ]b) Potassium less than 3.0 mEq/L (mmol/L) with ANY ONE of the following: [ ]i) Weakness [ ]ii) Cardiac abnormality (eg, arrhythmia, conduction disturbance) [ ]iii) Cardiac ischemia [ ]iv) Ileus [ ]v) Ongoing medical cause requiring inpatient management. ( e.g., acute renal wasting, SIADH) [ ]vi) Other severe symptoms [X ] IV. Hyperkalemia with ANY ONE of the following: [ ]a) Potassium greater than 6.5 mEq/L (mmol/L) [X ]b) Potassium greater than 5 mEq/L (mmol/L) with ANY ONE of the following: [ ]i) Severe ECG findings [H] [X ]ii) Acute worsening of renal failure (creatinine greater than 2.5 mg/dL (221 micromoles/L) or significant elevation for age and size) [ ] V. Hypocalcemia with ANY ONE of the following: [ ]a) Calcium less than 7 mg/dL (1.75 mmol/L) despite outpatient and emergency treatment(19) [ ]b) Calcium less than 8 mg/dL (2 mmol/L) with significant symptoms or findings; examples include: [ ]i) Cardiac abnormality (eg, arrhythmia or conduction disturbance) [ ]ii) Altered mental status [ ]iii) Seizures [ ]iv) Breathing difficulty [ ]v) Muscle spasms [ ]. Hypercalcemia with ANY ONE of the following: [ ]a) Calcium greater than 14 mg/dL (3.5 mmol/L) [ ]b) Calcium greater than 12 mg/dL (3 mmol/L) with ANY ONE of the following: [ ]i) Significant dehydration or hypovolemia as indicated by ANY ONE of the following(2): [ ]1. Clinically significant dehydration as indicated by ANY ONE of the following: [ ]A. Acute loss of weight from baseline (5% of body weight in adults, 9% in pediatric patients) [ ]B. Hemodynamic instability [ ]C. Acute renal failure [ ]D. Serum sodium greater than 150 mEq/L (mmol/L) [ ]2) Dehydration that is persistent indicated by ALL of the following: [ ]A. Oral rehydration therapy not tolerated or insufficient to adequately correct dehydration [ ]B. Appropriate intravenous treatment (eg, fluids ) does not readily correct dehydration ie, after 12 to 24 hours of treatment) [ ]ii) Significant symptoms or findings; examples include: [ ]1) Altered mental status [ ]2) Cardiac abnormality (eg, arrhythmia, conduction disturbance) [ ]3) Cardiac abnormality (eg, arrhythmia, conduction disturbance) The original [facility] content created by [employer] has been revised. The portions of the content which have been revised are identified through the use of italic text or in bold, and [facility] has neither reviewed nor approved the modified material. All other unmodified content is copyright [facility] [employer] Please see references footnoted in the original [facility] [employer] edition 2016 Admission Criteria Met: Yes
[2016-12-14] MEDS ORDERED: NEURONTIN PO SCH (08:00)
--- NOTE | 2016-12-14 08:34 | Consultation ---
History of Present Illness - Reason for Consult Consult date: 12/14/16 end stage renal disease - History of Present Illness Mr. Del Cid is a 46yo with ERSD on IHD MWF admitted w/ hyperkalemia following vascular procedure. Past History Past Medical History: other (End stage renal disease on HD, Polycystic kidney disease, Anemia secondary to ESRD, Secondary hyperparathyroidism) Social history: . denies: smoking, alcohol abuse Family history: other (Polycystic kidney disease) Medications and Allergies Allergies Allergy/AdvReac Type Severity Reaction Status Date / Time levetiracetam [From Keppra] Allergy Hives Verified 05/03/15 10:34 nalbuphine HCl [From Nubain] AdvReac Unknown Verified 05/03/15 10:34 Home Medications Medication Instructions Recorded Confirmed Last Taken Type Cyclobenzaprine HCl [Flexeril] 10 mg PO QHS 06/08/15 12/13/16 12/12/16 History 10mg Calcitriol [Rocaltrol] 0.25 mcg PO QDAY #30 capsule 09/29/15 12/13/16 12/12/16 Rx .25mg Gemfibrozil [Lopid] 600 mg PO BID #60 tablet 09/29/15 12/13/16 12/13/16 04:00 Rx Gabapentin [Neurontin] 100 mg PO TID 08/16/16 12/13/16 12/13/16 04:00 History Sodium Bicarbonate 650 mg PO BID 08/22/16 12/13/16 12/13/16 04:00 History 650mg diphenhydrAMINE [Benadryl CAP] 50 mg PO BID 08/22/16 12/13/16 12/12/16 History 50mg Zolpidem [Ambien] 5 mg PO QHS 08/23/16 12/13/16 12/12/16 History 5mg traZODone [Desyrel] 50 mg PO QHS 08/23/16 12/13/16 12/12/16 History 50mg Pantoprazole [Protonix TAB] 40 mg PO QDAY 09/14/16 12/13/16 12/13/16 04:00 History Pramipexole [Mirapex] 0.5 mg PO QHS 09/14/16 12/13/16 12/13/16 04:00 History 0.5mg Benzonatate [Tessalon Perles] 100 mg PO BID 10/25/16 12/13/16 12/12/16 History 100mg Clopidogrel [Plavix] 75 mg PO DAILY 10/25/16 12/13/16 12/13/16 04:30 History Folic Acid 1 mg PO BID 10/25/16 12/13/16 12/13/16 04:00 History Midodrine [Proamatine] 10 mg PO QAM 10/25/16 12/13/16 12/13/16 04:00 History Oxycodone HCl/Acetaminophen 1 tab PO TID 12/04/16 12/13/16 12/12/16 History [Percocet 7.5/325 mg] 1 tab Active Meds: Active Medications Acetaminophen (Tylenol) 650 mg PO Q4H PRN PRN Reason: Pain MILD(1-3)/Fever >100.5/SEPULVEDA Benzonatate (Tessalon Perles) 100 mg PO BID PRN PRN Reason: Cough Bisacodyl (Dulcolax) 10 mg [place] QDAY PRN PRN Reason: Constipation unrelieved by MOM Calcitriol (Rocaltrol) 0.25 mcg PO QDAY [facility] Last Admin: 12/14/16 01:35 Dose: 0.25 mcg Cyclobenzaprine HCl (Flexeril) 10 mg PO QHS [facility] Last Admin: 12/14/16 01:37 Dose: 10 mg Diphenhydramine HCl (Benadryl) 50 mg PO BID [facility] Last Admin: 12/14/16 01:36 Dose: 50 mg Famotidine (Pepcid) 20 mg PO DAILY [facility] Folic Acid (Folvite) 1 mg PO BID [facility] Last Admin: 12/14/16 01:37 Dose: 1 mg Gabapentin (Neurontin) 100 mg PO TID [facility] Gemfibrozil (Lopid) 600 mg PO BID [facility] Last Admin: 12/14/16 01:38 Dose: 600 mg Heparin Sodium (Porcine) (Heparin) 5,000 unit IV JOSE PRN PRN Reason: hemodialysis Last Admin: 12/13/16 22:45 Dose: 5,000 unit Heparin Sodium (Porcine) (Heparin) 5,000 unit SUB-Q Q12HR [facility] Last Admin: 12/14/16 01:39 Dose: 5,000 unit Hydromorphone HCl (Dilaudid) 1 mg IV Q3H PRN PRN Reason: Pain , Severe (7-10) Last Admin: 12/14/16 06:31 Dose: 1 mg Sodium Chloride (Nacl 0.9% 1000 Ml) 1,000 mls @ 42 mls/hr IV DIRECT [facility] Last Admin: 12/14/16 04:20 Dose: 42 mls/hr Sodium Chloride (Nacl 0.9%) 100 mls @ 999 mls/hr IV JOSE PRN PRN Reason: Hypotension Sodium Chloride (Nacl 0.9%) 100 mls @ 999 mls/hr IV JOSE PRN PRN Reason: Hypotension Magnesium Hydroxide (Milk Of Magnesia) 30 ml PO Q4H PRN PRN Reason: Constipation Midodrine (Proamatine) 10 mg PO QAM [facility] Ondansetron HCl (Zofran) 4 mg IV Q8H PRN PRN Reason: N/V unrelieved by Reglan Pantoprazole Sodium (Protonix) 40 mg PO QDAY [facility] Last Admin: 12/14/16 01:37 Dose: 40 mg Pramipexole Dihydrochloride (Mirapex) 0.5 mg PO QHS [facility] Last Admin: 12/14/16 01:43 Dose: 0.5 mg Sodium Bicarbonate (Sodium Bicarbonate) 650 mg PO BID [facility] Last Admin: 12/14/16 01:36 Dose: 650 mg Trazodone HCl (Desyrel) 50 mg PO QHS [facility] Last Admin: 12/14/16 01:37 Dose: 50 mg Zolpidem Tartrate (Ambien) 5 mg PO QHS [facility] Last Admin: 12/14/16 01:40 Dose: 5 mg Review of Systems Constitutional: no fever, no chills, no sweats Cardiovascular: no chest pain, no shortness of breath Respiratory: cough, congestion Gastrointestinal: no abdominal pain, no nausea, no vomiting, no diarrhea Integumentary: no rash Neurological: no headaches Exam - Vital Signs Vital signs: Vital Signs Temp Pulse Resp BP Pulse Ox 98.1 F 86 18 94/55 100 12/13/16 07:50 12/13/16 07:50 12/13/16 07:50 12/13/16 07:50 12/13/16 07:50 - General Appearance General appearance: well-developed, well-nourished, obese EENT: ATNC Respiratory: Decreased Breath Sounds Heart: regular, S1S2 Gastrointestinal: Present: normal. Absent: tenderness, distended Integumentary: no rash Neurologic: alert and oriented x3 Psychiatric: cooperative Results - Lab Results 12/15/16 07:11 12/14/16 05:38 Most recent lab results Calcium 6.9 mg/dL (8.4-10.2) L 12/14/16 05:38 Assessment and Plan Impression: * End stage renal disease on HD * Anemia secondary to ESRD * Secondary hyperparathyroidism Plan: * Hemodialysis MWF * Epogen with dialysis * Renal diet * Binders with meals
[2016-12-14] MEDS ORDERED: PROVENTIL IH PRN (10:03)
[2016-12-14] MEDS: NEURONTIN PO SCH ×3 (10:13→20:25)
[2016-12-14] MEDS: PEPCID PO SCH (11:20)
[2016-12-14] MEDS: PROAMATINE PO SCH (11:21)
[2016-12-14] MEDS: DUONEB 0.5 MG-3 MG/3 ML SOLN IH SCH ×3 (12:00→20:45)
[2016-12-14] MEDS: TESSALON PERLES PO SCH ×2 (14:13→22:58)
[2016-12-14] MEDS ORDERED: KIONEX PO ONE (14:36)
--- NOTE | 2016-12-14 15:38 | Progress Note ---
Assessment and Plan Assessment and plan: Patient is a 46-year-old male with history of end-stage renal disease, CAD, chronic hypotension admitted post hero graft of thrombosed left upper extremity for noted high potassium. This morning patient has persistent productive cough marked shortness of breath. * Acute on chronic respiratory failure * End-stage renal disease * Persistent cough * Persistent hyperkalemia * ESRD * Chronic hypokalemia * CAD * Peripheral neuropathy * Recurrent muscle spasms * Morbid obesity- BMI 42.6 Plan * In light of respiratory distress with persistent cough will keep patient in house. * We'll start patient on nebulizer treatment * We'll obtain chest x-ray * Continue Tessalon Perle * Hemodialysis per clinical engineering director * Monitor electrolytes in a.m. * Continue current treatment * Weight loss modality discussed in detail patient verbalized understanding * DVT/GI prophylaxis * Give additional kayxalate * Nephrology following. History Interval history: Patient seen and examined this morning in mild respiratory distress with cough productive of thick phlegm. Denies any chest pain, nausea, vomiting, diarrhea No fever noted blood pressure controlled No adverse events reported to me by nursing staff Hospitalist Physical - Physical exam Narrative exam: VITAL SIGNS: Reviewed. GENERAL: The patient appeared well nourished and normally developed, obese. Vital signs as documented. HEAD: No signs of head trauma. EYES: Pupils are equal. Extraocular motions intact. EARS: Hearing grossly intact. MOUTH: Oropharynx is normal. NECK: No adenopathy, no JVD. CHEST: Chest with crackles bilaterally. No wheezes, rales, or rhonchi. CARDIAC: Regular rate and rhythm. S1 and S2, without murmurs, gallops, or rubs. VASCULAR: No Edema. Peripheral pulses normal and equal in all extremities. ABDOMEN: Soft, without detectable tenderness. No sign of distention. No rebound or guarding, and no masses palpated. Bowel Sounds normal. MUSCULOSKELETAL: Good range of motion of all major joints. Extremities without clubbing, cyanosis or edema. NEUROLOGIC EXAM: Alert and oriented x 3. No focal sensory or strength deficits. Speech normal. Follows commands. PSYCHIATRIC: Mood normal. SKIN: Mild ecchymosis and non-blanchable erythema across the right side of the chest surrounding portal access. - Constitutional Vitals: Temp Pulse Resp BP Pulse Ox 97.8 F 92 H 22 92/49 93 12/14/16 08:00 12/14/16 08:00 12/14/16 08:00 12/14/16 08:00 12/14/16 08:00 General appearance: Present: no acute distress Results - Labs CBC & Chem 7: 12/14/16 05:38 12/14/16 05:38 Labs: Laboratory Last Values WBC 8.8 K/mm3 (4.5-11.0) 12/14/16 05:38 RBC 3.16 M/mm3 (3.65-5.03) L 12/14/16 05:38 Hgb 10.4 gm/dl (11.8-15.2) L 12/14/16 05:38 Hct 31.4 % (35.5-45.6) L 12/14/16 05:38 MCV 100 fl (84-94) H 12/14/16 05:38 MCH 33 pg (28-32) H 12/14/16 05:38 MCHC 33 % (32-34) 12/14/16 05:38 RDW 19.8 % (13.2-15.2) H 12/14/16 05:38 Plt Count 187 K/mm3 (140-440) 12/14/16 05:38 Lymph % (Auto) 13.5 % (13.4-35.0) 12/14/16 05:38 [place] % (Auto) 7.3 % (0.0-7.3) 12/14/16 05:38 Eos % (Auto) 4.1 % (0.0-4.3) 12/14/16 05:38 Baso % (Auto) 0.9 % (0.0-1.8) 12/14/16 05:38 Lymph # 1.2 K/mm3 (1.2-5.4) 12/14/16 05:38 [place] # 0.6 K/mm3 (0.0-0.8) 12/14/16 05:38 Eos # 0.4 K/mm3 (0.0-0.4) 12/14/16 05:38 Baso # 0.1 K/mm3 (0.0-0.1) 12/14/16 05:38 Seg Neutrophils % 74.2 % (40.0-70.0) H 12/14/16 05:38 Seg Neutrophils # 6.5 K/mm3 (1.8-7.7) 12/14/16 05:38 Sodium 138 mmol/L (137-145) 12/14/16 05:38 Potassium 5.1 mmol/L (3.6-5.0) H D 12/14/16 05:38 Chloride 94.6 mmol/L (98-107) L 12/14/16 05:38 Carbon Dioxide 25 mmol/L (22-30) 12/14/16 05:38 Anion Gap 24 mmol/L 12/14/16 05:38 BUN 31 mg/dL (9-20) H 12/14/16 05:38 Creatinine 6.7 mg/dL (0.8-1.5) H 12/14/16 05:38 Estimated GFR 9 ml/min 12/14/16 05:38 BUN/Creatinine Ratio 4.62 % 12/14/16 05:38 Glucose 87 mg/dL (75-100) 12/14/16 05:38 POC Glucose 161 (70-105) H 12/14/16 06:38 Hemoglobin A1c 4.7 % (4-6) 12/13/16 23:55 Calcium 6.9 mg/dL (8.4-10.2) L 12/14/16 05:38 Total Bilirubin 0.2 mg/dL (0.1-1.2) 12/14/16 05:38 AST 35 units/L (5-40) 12/14/16 05:38 ALT 7 units/L (7-56) 12/14/16 05:38 Alkaline Phosphatase 81 units/L (35-129) 12/14/16 05:38 Total Protein 5.8 g/dL (6.3-8.2) L 12/14/16 05:38 Albumin 3.3 g/dL (3.9-5) L 12/14/16 05:38 Albumin/Globulin Ratio 1.3 % 12/14/16 05:38 - Imaging and Cardiology Chest x-ray: pending
--- NOTE | 2016-12-14 16:05 | Progress Note ---
Assessment and Plan Status post thrombectomy of HERO graft, DEION. Dopplerable signal in AV access. Patient is actively hypotensive which places recently thrombectomized access at high risk for recurrent thrombosis. Recommend preventing hypotension as much as possible. Patient will follow up in 2 weeks. Please use HERO graft and not permcath for futher AV access. After 6 successful uses, will remove permcath. - Patient Problems (1) Hemodialysis graft malfunction Current Visit: No Status: Acute Qualifiers: Encounter type: E Subjective Date of service: 12/14/16 Interval history: Admitted for hyperkalemia. They used the permcath yesterday, although they were told to use the HERO graft. HERO graft has dopplerable signal, but does not have a thrill/pulse due to active hypotension. Objective - Constitutional Vitals: Vital Signs - 12hr 12/14/16 12/14/16 08:00 15:44 Temperature 97.8 F 98.1 F Pulse Rate [ 92 H 99 H Left Dorsalis Pedis] Respiratory 22 18 Rate Blood Pressure 92/49 [Left Calf] O2 Sat by Pulse 93 98 Oximetry General appearance: Present: no acute distress - EENT Eyes: EOM intact ENT: hearing intact - Respiratory Respiratory effort: other (some wheezes, audible) Extremities: normal temperature, normal color, abnormal (dopplerable HERO graft) - Psychiatric Psychiatric: appropriate mood/affect, cooperative - Labs CBC & Chem 7: 12/14/16 05:38 12/14/16 05:38 Labs: Abnormal lab results 12/13/16 12/13/16 12/13/16 Range/Units 17:06 23:55 23:55 RBC 3.21 L (3.65-5.03) M/mm3 Hgb 10.7 L (11.8-15.2) gm/dl Hct 31.9 L (35.5-45.6) % MCV 99 H (84-94) fl MCH 33 H (28-32) pg RDW 19.9 H (13.2-15.2) % Lymph % (Auto) 10.7 L (13.4-35.0) % [place] % (Auto) 7.8 H (0.0-7.3) % Lymph # 1.0 L (1.2-5.4) K/mm3 Seg Neutrophils % 78.0 H (40.0-70.0) % Sodium 136 L (137-145) mmol/L Potassium 6.3 H* (3.6-5.0) mmol/L Chloride 94.7 L (98-107) mmol/L BUN 30 H (9-20) mg/dL Creatinine 5.6 H (0.8-1.5) mg/dL POC Glucose (70-105) Calcium 6.4 L (8.4-10.2) mg/dL Total Protein 5.8 L (6.3-8.2) g/dL Albumin 3.4 L (3.9-5) g/dL 12/14/16 12/14/16 12/14/16 Range/Units 05:38 05:38 06:38 RBC 3.16 L (3.65-5.03) M/mm3 Hgb 10.4 L (11.8-15.2) gm/dl Hct 31.4 L (35.5-45.6) % MCV 100 H (84-94) fl MCH 33 H (28-32) pg RDW 19.8 H (13.2-15.2) % Lymph % (Auto) (13.4-35.0) % [place] % (Auto) (0.0-7.3) % Lymph # (1.2-5.4) K/mm3 Seg Neutrophils % 74.2 H (40.0-70.0) % Sodium (137-145) mmol/L Potassium 5.1 H D (3.6-5.0) mmol/L Chloride 94.6 L (98-107) mmol/L BUN 31 H (9-20) mg/dL Creatinine 6.7 H (0.8-1.5) mg/dL POC Glucose 161 H (70-105) Calcium 6.9 L (8.4-10.2) mg/dL Total Protein 5.8 L (6.3-8.2) g/dL Albumin 3.3 L (3.9-5) g/dL
[2016-12-15] MEDS: DILAUDID IV PRN ×3 (03:35→13:50)
[2016-12-15] MEDS: TESSALON PERLES PO SCH ×3 (05:46→21:22)
--- NOTE | 2016-12-15 07:48 | Vascular Lab Report ---
MISCELLANEOUS VESSEL IDENTIFICATION: COMMENTS ON THE SCAN: The left common femoral vein was identified and under real-time ultrasound guidance was cannulated. IMPRESSION: Successful ultrasound guided vein cannulation.
[2016-12-15] MEDS: DUONEB 0.5 MG-3 MG/3 ML SOLN IH SCH ×4 (07:50→20:11)
[2016-12-15 08:28] LABS: Hematocrit 29.3 % (35.5-45.6); Hemoglobin 9.6 gm/dl (11.8-15.2); Mean Corpuscular HGB Conc 33 % (32-34); Mean Corpuscular Hemoglobin 34 pg (28-32); Mean Corpuscular Volume 102 fl (84-94); Red Blood Count 2.87 M/mm3 (3.65-5.03); White Blood Count 7.5 K/mm3 (4.5-11.0)
[2016-12-15 08:29] LABS: Red Cell Distribution Width 20.5 % (13.2-15.2)
[2016-12-15 08:43] LABS: BUN/Creatinine Ratio 5.22; Calcium 7.4 mg/dL (8.4-10.2); Chloride 94.6 mmol/L (98-107); Potassium 5.1 mmol/L (3.6-5.0)
[2016-12-15] MEDS ORDERED: NACL 0.9% 100 ML IV PRN (09:00)
[2016-12-15 09:06] LABS: Platelet Count 179 K/mm3 (140-440)
--- NOTE | 2016-12-15 09:16 | XRay Report ---
Chest 2 views: Compared to 05/16/16. History: Shortness of breath. Findings: Normal cardiomediastinal silhouette. Stable support system. No consolidation, pneumothorax or pleural effusion. Impression: No acute lung changes.
[2016-12-15] MEDS: HEPARIN SUB-Q SCH ×2 (10:11→21:22)
[2016-12-15] MEDS: ROCALTROL PO SCH (10:19)
[2016-12-15] MEDS: FOLVITE PO SCH ×2 (10:20→21:21)
[2016-12-15] MEDS: PROTONIX PO SCH (10:20)
[2016-12-15] MEDS: LOPID PO SCH ×2 (10:20→21:20)
[2016-12-15] MEDS: PROAMATINE PO SCH (10:20)
[2016-12-15] MEDS: SODIUM BICARBONATE PO SCH ×2 (10:20→21:19)
[2016-12-15] MEDS: PEPCID PO SCH (10:21)
[2016-12-15] MEDS: BENADRYL PO SCH ×2 (10:21→21:18)
[2016-12-15] MEDS: NEURONTIN PO SCH ×3 (10:23→21:21)
[2016-12-15] MEDS: NACL 0.9% 1000 ML 1,000 ML IV SCH (10:36)
--- NOTE | 2016-12-15 11:01 | Progress Note ---
Assessment and Plan Patient will need to have dialysis through his left upper arm graft. He is scheduled for dialysis today. Once he has undergone dialysis and his blood pressure is stabilized, the patient may be discharged home. Subjective Date of service: 12/15/16 Principal diagnosis: ESRD with thrombosed graft Interval history: Patient is doing well following thrombectomy. His blood pressure appears somewhat better today. No complaints of pain. He is scheduled for dialysis today. Objective - Constitutional Vitals: Vital Signs - 12hr 12/14/16 12/14/16 12/14/16 22:00 22:11 23:00 Temperature 98.2 F Pulse Rate [ Anterior Bilateral Throughout] Pulse Rate [ 140 H Right Radial] Respiratory 22 20 Rate Respiratory Rate [Anterior Bilateral Throughout] Respiratory Rate [Back] Blood Pressure 115/72 [Right Calf] O2 Sat by Pulse 96 92 Oximetry 12/14/16 12/15/16 12/15/16 23:30 00:00 03:35 Temperature Pulse Rate [ Anterior Bilateral Throughout] Pulse Rate [ Right Radial] Respiratory 20 20 Rate Respiratory Rate [Anterior Bilateral Throughout] Respiratory 22 Rate [Back] Blood Pressure [Right Calf] O2 Sat by Pulse Oximetry 12/15/16 12/15/16 12/15/16 04:05 07:35 07:50 Temperature 97.6 F Pulse Rate [ 83 Anterior Bilateral Throughout] Pulse Rate [ 86 Right Radial] Respiratory 20 18 Rate Respiratory 18 Rate [Anterior Bilateral Throughout] Respiratory Rate [Back] Blood Pressure 102/73 [Right Calf] O2 Sat by Pulse 95 99 Oximetry 12/15/16 07:59 Temperature Pulse Rate [ 87 Anterior Bilateral Throughout] Pulse Rate [ Right Radial] Respiratory Rate Respiratory 18 Rate [Anterior Bilateral Throughout] Respiratory Rate [Back] Blood Pressure [Right Calf] O2 Sat by Pulse Oximetry General appearance: Present: no acute distress - EENT Eyes: PERRL ENT: hearing intact - Neck Neck: supple, normal ROM - Respiratory Respiratory effort: normal Extremities: abnormal - Gastrointestinal General gastrointestinal: Present: deferred - Genitourinary Male genitourinary: deferred - Psychiatric Psychiatric: appropriate mood/affect, cooperative - Labs CBC & Chem 7: 12/15/16 07:11 12/15/16 07:11 Labs: Abnormal lab results 12/15/16 12/15/16 Range/Units 07:11 07:11 RBC 2.87 L (3.65-5.03) M/mm3 Hgb 9.6 L (11.8-15.2) gm/dl Hct 29.3 L (35.5-45.6) % MCV 102 H (84-94) fl MCH 34 H (28-32) pg RDW 20.5 H (13.2-15.2) % Potassium 5.1 H (3.6-5.0) mmol/L Chloride 94.6 L (98-107) mmol/L BUN 47 H (9-20) mg/dL Creatinine 9.0 H (0.8-1.5) mg/dL Calcium 7.4 L (8.4-10.2) mg/dL
--- NOTE | 2016-12-15 11:02 | Discharge Summary ---
Providers - Providers Date of Admission: 12/13/16 18:56 Date of discharge: 12/15/16 Attending physician: CHIQUITA ANDERS MD 12/13/16 21:28 Consult to Physician [CONS] Routine Consulting Provider: HI HENDERSON Reason For Exam: ESRD Place consult to:: DR. PONCE Notified:: DR. PONCE Phone number called:: IN HOUSE Was contact made?: Yes If yes, spoke with:: DR. PONCE Time called:: 09:30 12/13/16 21:37 Consult to Physician [CONS] Routine Consulting Provider: SAVAGE CRISTOBAL Reason For Exam: ESRD Place consult to:: DESEAN YADAV Notified:: LISA Phone number called:: IN HOUSE Was contact made?: Yes If yes, spoke with:: LISA Time called:: 11:47 Primary care physician: BHARATH FELICIANO Hospitalization Reason for admission: hyperkalemia Condition: Stable Hospital course: patient is a 46-year-old male with history of end-stage renal disease, CAD, chronic hypotension admitted post hero graft of thrombosed left upper extremity for noted high potassium. The patient was also persistent productive cough which he states happens whenever he doesn't take his Tessalon Perlesthat this is chronic. He denies any history of tobacco use he was noted to have some wheezing for which she was started on nebulizer treatments. Today he is clinically improved. He is doing well he did have a thrombectomy of the hero graft subsequently cannulated. He does have history of hypotension for which he is on midodrine. We did discuss all the findings with him and vascular surgeon also did the same. Goal is to prevent him from being hypotensive as much as possible he is to follow with vascular in the clinic in 2 weeks. He did have successful dialysis with no further complications. His cough had improved. Sputum culture was sent to and is pending I do not anticipate any growth. He was treated empirically with antibiotics. Nephrology and vascular input was highly appreciated Discharge diagnosis * Acute on chronic respiratory failure * End-stage renal disease * Persistent cough * Persistent hyperkalemia * ESRD * Chronic hypokalemia * CAD * Peripheral neuropathy * Recurrent muscle spasms * Morbid obesity- BMI 42.6 Disposition: DISCHARGED TO HOME OR SELFCARE Time spent for discharge: 35 mins Core Measure Documentation - Palliative Care Palliative Care/ Comfort Measures: Not Applicable - Core Measures Any of the following diagnoses?: none - VTE Discharge Requirements Deep Vein Thrombosis/Pulmonary Embolism Present on Admission: No Exam - Physical Exam Narrative exam: VITAL SIGNS: Reviewed. GENERAL: The patient appeared well nourished and normally developed, obese. Vital signs as documented. HEAD: No signs of head trauma. EYES: Pupils are equal. Extraocular motions intact. EARS: Hearing grossly intact. MOUTH: Oropharynx is normal. NECK: No adenopathy, no JVD. CHEST: Chest with mild bibasilar crackles improved from yesterday. No wheezes , rales, or rhonchi. CARDIAC: Regular rate and rhythm. S1 and S2, without murmurs, gallops, or rubs. VASCULAR: No Edema. Peripheral pulses normal and equal in all extremities. ABDOMEN: Soft, without detectable tenderness. No sign of distention. No rebound or guarding, and no masses palpated. Bowel Sounds normal. MUSCULOSKELETAL: Good range of motion of all major joints. Extremities without clubbing, cyanosis or edema. NEUROLOGIC EXAM: Alert and oriented x 3. No focal sensory or strength deficits. Speech normal. Follows commands. PSYCHIATRIC: Mood normal. SKIN: Mild ecchymosis and non-blanchable erythema across the right side of the chest surrounding portal access. - Constitutional Vitals: Temp Pulse Resp BP Pulse Ox 97.6 F 87 18 102/73 99 12/15/16 07:35 12/15/16 07:59 12/15/16 07:59 12/15/16 07:35 12/15/16 07:50 Plan Activity: advance as tolerated, fall precautions Diet: renal Special Instructions: record daily BP diary, record blood sugar diary Follow up with: BHARATH FELICIANO MD [Primary Care Provider] - 7 Days DOE PONCE MD [Staff Physician] - 7 Days SAVAGE CRISTOBAL MD [Staff Physician] - 7 Days Prescriptions: ALBUTEROL Inhaler [ProAir HFA Inhaler] 1 puff IH QID PRN #1 inha PRN Reason: Shortness Of Breath
--- NOTE | 2016-12-15 13:59 | Progress Note ---
Assessment and Plan Impression: * End stage renal disease on HD * Malfunctioning HERO graft * Anemia secondary to ESRD * Secondary hyperparathyroidism Plan: * Hemodialysis MWF. UF as tolerated * Cannulate HERO graft today * Epogen with dialysis * Renal diet * Binders with meals Subjective Date of service: 12/15/16 Principal diagnosis: ESRD with thrombosed graft Interval history: Patient has no complaints today. Objective - Vital Signs Vital signs: Vital Signs - 12hr 12/15/16 12/15/16 12/15/16 03:35 04:05 07:35 Temperature 97.6 F Pulse Rate [ Anterior Bilateral Throughout] Pulse Rate [ 86 Right Radial] Respiratory 20 20 18 Rate Respiratory Rate [Anterior Bilateral Throughout] Blood Pressure 102/73 [Right Calf] O2 Sat by Pulse 95 Oximetry 12/15/16 12/15/16 12/15/16 07:50 07:59 13:56 Temperature Pulse Rate [ 83 87 90 Anterior Bilateral Throughout] Pulse Rate [ Right Radial] Respiratory Rate Respiratory 18 18 18 Rate [Anterior Bilateral Throughout] Blood Pressure [Right Calf] O2 Sat by Pulse 99 Oximetry - General Appearance General appearance: well-developed, well-nourished EENT: ATNC Respiratory: Present: Decreased Breath Sounds Cardiology: regular, S1S2 Gastrointestinal: normal, no tenderness, no distended, obese Integumentary: no rash Musculoskeletal: other (no edema) Psychiatric: mood/affect appropriate, cooperative - Lab 12/15/16 07:11 12/15/16 07:11 Most recent lab results Calcium 7.4 mg/dL (8.4-10.2) L 12/15/16 07:11
[2016-12-15] MEDS: MIRAPEX PO SCH (21:18)
[2016-12-15] MEDS: FLEXERIL PO SCH (21:20)
[2016-12-15] MEDS: DESYREL PO SCH (21:21)
[2016-12-15] MEDS: AMBIEN PO SCH (21:39)
[2016-12-15 23:54] VITALS: BP 90/49
== END 2016-12-16 00:25 | disposition home health service (06) | DRG 270 ==
LOC: OPU 06:44 → OBSVTOIN 18:56 → 2B-SURG 18:56 → 3A 20:16
PROVIDERS: ADMIT Internal Medicine; ATTEND Internal Medicine
PROC: 037Y3ZZ Dilation of Upper Artery, Percutaneous Approach (ICD-10-PCS; principal; 2016-12-13)
PROC: 06C03ZZ Extirpation of Matter from Inferior Vena Cava, Percutaneous Approach (ICD-10-PCS; 2016-12-13)
PROC: 03783ZZ Dilation of Left Brachial Artery, Percutaneous Approach (ICD-10-PCS; 2016-12-13)
PROC: 05CY3ZZ Extirpation of Matter from Upper Vein, Percutaneous Approach (ICD-10-PCS; 2016-12-13)
PROC: 5A1D60Z (ICD-10-PCS; 2016-12-13)
PROC: 057Y3ZZ Dilation of Upper Vein, Percutaneous Approach (ICD-10-PCS; 2016-12-13)
PROC: 06703ZZ Dilation of Inferior Vena Cava, Percutaneous Approach (ICD-10-PCS; 2016-12-13)
PROC: 03C83ZZ Extirpation of Matter from Left Brachial Artery, Percutaneous Approach (ICD-10-PCS; 2016-12-13)
PROC: 06703ZZ Dilation of Inferior Vena Cava, Percutaneous Approach (ICD-10-PCS; 2016-12-13)
PROC: 06DY4ZZ Extraction of Lower Vein, Percutaneous Endoscopic Approach (ICD-10-PCS; 2016-12-13)
PROC: 06C03ZZ Extirpation of Matter from Inferior Vena Cava, Percutaneous Approach (ICD-10-PCS; 2016-12-13)
PROC: B519ZZZ Fluoroscopy of Inferior Vena Cava (ICD-10-PCS; 2016-12-13)
PROC: B51NZZZ Fluoroscopy of Left Upper Extremity Veins (ICD-10-PCS; 2016-12-13)
PROC: 3E06317 Introduction of Other Thrombolytic into Central Artery, Percutaneous Approach (ICD-10-PCS; 2016-12-13)
PROC: B31JZZZ Fluoroscopy of Left Upper Extremity Arteries (ICD-10-PCS; 2016-12-13)
PROC: B5191ZZ Fluoroscopy of Inferior Vena Cava using Low Osmolar Contrast (ICD-10-PCS; 2016-12-13)
DX: T82.898A Other specified complication of vascular prosthetic devices, implants and grafts, initial encounter (principal); N18.6 End stage renal disease; J96.20 Acute and chronic respiratory failure, unspecified whether with hypoxia or hypercapnia; Z68.41 Body mass index [BMI] 40.0-44.9, adult; E66.01 Morbid (severe) obesity due to excess calories; E87.5 Hyperkalemia; I25.10 Atherosclerotic heart disease of native coronary artery without angina pectoris; I73.9 Peripheral vascular disease, unspecified; K21.9 Gastro-esophageal reflux disease without esophagitis; G62.9 Polyneuropathy, unspecified; D63.1 Anemia in chronic kidney disease; I95.89 Other hypotension; Y83.8 Other surgical procedures as the cause of abnormal reaction of the patient, or of later complication, without mention of misadventure at the time of the procedure; Y92.89 Other specified places as the place of occurrence of the external cause; Z88.8 Allergy status to other drugs, medicaments and biological substances; Z88.6 Allergy status to analgesic agent; Z82.49 Family history of ischemic heart disease and other diseases of the circulatory system; Z99.2 Dependence on renal dialysis
CPT/HCPCS: 36415; 36905; 36907; 71020; 76937; 80048; 80053; 82962; 83036; 84132; 85025; 85027; 87070; 87205; 94640; 94760; 96374; 96375; C1725; C1751; C1757; C1769; C1773; C1887; C1894; J0690; J1170; J1644; J1815; J1885; J2250; J2370; J2704; J2997; J7030; J7040; Q9967

== ENCOUNTER 2017-01-15 18:35 | Inpatient (IN) | payer OTHER, MEDICARE ==
[2017-01-15 20:03] LABS: Basophils % (Auto) 1.5 % (0.0-1.8); Eosinophils % (Auto) 4.9 % (0.0-4.3); Hematocrit 34.5 % (35.5-45.6); Hemoglobin 11.8 gm/dl (11.8-15.2); Mean Corpuscular HGB Conc 34 % (32-34); Mean Corpuscular Hemoglobin 34 pg (28-32); Mean Corpuscular Volume 98 fl (84-94); Platelet Count 350 K/mm3 (140-440); Red Blood Count 3.52 M/mm3 (3.65-5.03); Red Cell Distribution Width 16.8 % (13.2-15.2); White Blood Count 8.9 K/mm3 (4.5-11.0)
[2017-01-15 20:20] LABS: INR 1.82 (0.87-1.13)
[2017-01-15 20:21] LABS: BUN/Creatinine Ratio 5.41; Calcium 8.9 mg/dL (8.4-10.2); Chloride 96.9 mmol/L (98-107); Potassium 4.3 mmol/L (3.6-5.0)
--- NOTE | 2017-01-15 21:23 | Emergency Department Report ---
ED Shortness of Breath HPI - General Chief Complaint: Dyspnea/Respdistress Stated Complaint: SENT BY DOCTOR Time Seen by Provider: 01/15/17 19:53 Source: patient, family Mode of arrival: Wheelchair Limitations: Physical Limitation - History of Present Illness Initial Comments: Patient is a 38-year-old male with a history of clotting disorder on Coumadin presenting with increasing shortness of breath 4 days. He takes Coumadin daily but his last dose was approximately 4 days ago due to elevated INR, and ever since then he's been having increased respiratory distress with exertion. patient went to go see his acquisition marketing manager today for concern of increasing shortness of breath with history of PE and sent to the ER for further evaluation. Otherwise no fevers, chills, SEPULVEDA, N,V,D, CP, abdominal pain, extremity pain, recent travel, hemoptysis, trauma, or sick contacts MD Complaint: shortness of breath - Related Data Home Medications Medication Instructions Recorded Confirmed Last Taken Cyclobenzaprine HCl [Flexeril] 10 mg PO QHS 06/08/15 01/15/17 1 Day Ago 10 Gabapentin [Neurontin] 100 mg PO TID 08/16/16 01/15/17 1 Day Ago 100 diphenhydrAMINE [Benadryl CAP] 50 mg PO BID 08/22/16 01/15/17 1 Day Ago 25 traZODone [Desyrel] 50 mg PO QHS 08/23/16 01/15/17 1 Day Ago 50 Pantoprazole [Protonix TAB] 40 mg PO QDAY 09/14/16 01/15/17 1 Day Ago 40 Pramipexole [Mirapex] 0.5 mg PO QHS 09/14/16 01/15/17 1 Day Ago 1 Benzonatate [Tessalon Perles] 100 mg PO BID 10/25/16 01/15/17 1 Day Ago 100 Folic Acid 1 mg PO BID 10/25/16 01/15/17 1 Day Ago 1 Midodrine [Proamatine] 10 mg PO QAM 10/25/16 01/15/17 1 Day Ago 10 Fluticasone/Salmeterol [Advair 1 puff IH BID 12/29/16 01/15/17 1 Day Ago Diskus 250-50 mcg] 1 Oxycodone HCl/Acetaminophen 1 each PO Q6HR PRN 12/29/16 01/15/17 1 Day Ago [Percocet 10/325 mg] 1 Warfarin [Coumadin] 5 mg PO QDAY 01/15/17 01/15/17 1 Week Ago 5 Zolpidem [Ambien] 5 mg PO QHS PRN 01/15/17 01/15/17 1 Day Ago 5 Previous Rx's Medication Instructions Recorded Last Taken Type Calcitriol [Rocaltrol] 0.25 mcg PO QDAY #30 capsule 09/29/15 1 Day Ago Rx 0.25 Gemfibrozil [Lopid] 600 mg PO BID #60 tablet 09/29/15 1 Day Ago Rx 600 ALBUTEROL Inhaler [ProAir HFA 1 puff IH QID PRN #1 inha 12/15/16 1 Day Ago Rx Inhaler] 8.5 Allergies Allergy/AdvReac Type Severity Reaction Status Date / Time levetiracetam [From Keppra] Allergy Hives Verified 05/03/15 10:34 nalbuphine HCl [From Nubain] AdvReac AGGRESSIVE Verified 12/29/16 10:31 OUT BURST ED Review of Systems ROS: Stated complaint: SENT BY DOCTOR Other details as noted in HPI Comment: All other systems reviewed and negative ED Past Medical Hx - Past Medical History Previous Medical History?: Yes Hx Deep Vein Thrombosis: Yes Hx GERD: Yes Hx Renal Disease: Yes (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 Hx. of left and right arm AV grafts - Social History Smoking Status: Never Smoker Substance Use Type: Prescribed - Medications Home Medications: Home Medications Medication Instructions Recorded Confirmed Last Taken Type Cyclobenzaprine HCl [Flexeril] 10 mg PO QHS 06/08/15 01/15/17 1 Day Ago History 10 Calcitriol [Rocaltrol] 0.25 mcg PO QDAY #30 capsule 09/29/15 01/15/17 1 Day Ago Rx 0.25 Gemfibrozil [Lopid] 600 mg PO BID #60 tablet 09/29/15 01/15/17 1 Day Ago Rx 600 Gabapentin [Neurontin] 100 mg PO TID 08/16/16 01/15/17 1 Day Ago History 100 diphenhydrAMINE [Benadryl CAP] 50 mg PO BID 08/22/16 01/15/17 1 Day Ago History 25 traZODone [Desyrel] 50 mg PO QHS 08/23/16 01/15/17 1 Day Ago History 50 Pantoprazole [Protonix TAB] 40 mg PO QDAY 09/14/16 01/15/17 1 Day Ago History 40 Pramipexole [Mirapex] 0.5 mg PO QHS 09/14/16 01/15/17 1 Day Ago History 1 Benzonatate [Tessalon Perles] 100 mg PO BID 10/25/16 01/15/17 1 Day Ago History 100 Folic Acid 1 mg PO BID 10/25/16 01/15/17 1 Day Ago History 1 Midodrine [Proamatine] 10 mg PO QAM 10/25/16 01/15/17 1 Day Ago History 10 ALBUTEROL Inhaler [ProAir HFA 1 puff IH QID PRN #1 inha 12/15/16 01/15/17 1 Day Ago Rx Inhaler] 8.5 Fluticasone/Salmeterol [Advair 1 puff IH BID 12/29/16 01/15/17 1 Day Ago History Diskus 250-50 mcg] 1 Oxycodone HCl/Acetaminophen 1 each PO Q6HR PRN 12/29/16 01/15/17 1 Day Ago History [Percocet 10/325 mg] 1 Warfarin [Coumadin] 5 mg PO QDAY 01/15/17 01/15/17 1 Week Ago History 5 Zolpidem [Ambien] 5 mg PO QHS PRN 01/15/17 01/15/17 1 Day Ago History 5 ED Physical Exam - General Limitations: Physical Limitation General appearance: alert, in no apparent distress - Head Head exam: Present: atraumatic, normocephalic - Eye Eye exam: Present: normal appearance - ENT ENT exam: Present: mucous membranes moist - Neck Neck exam: Present: normal inspection - Respiratory Respiratory exam: Present: normal lung sounds bilaterally. Absent: respiratory distress, wheezes, rales, rhonchi, chest wall tenderness, decreased breath sounds - Cardiovascular Cardiovascular Exam: Present: regular rate, normal rhythm. Absent: systolic murmur, diastolic murmur, rubs, gallop - GI/Abdominal GI/Abdominal exam: Present: soft, normal bowel sounds. Absent: distended, tenderness, guarding - Back Exam Back exam: Present: normal inspection - Neurological Exam Neurological exam: Present: alert, oriented X3 - Psychiatric Psychiatric exam: Present: normal affect, normal mood - Skin Skin exam: Present: warm, dry, intact, normal color. Absent: rash ED Course Vital Signs 01/15/17 01/15/17 01/15/17 18:55 20:03 20:05 Temperature 99 F Pulse Rate 116 H 118 H Respiratory 18 16 16 Rate Blood Pressure 247/120 Blood Pressure 135/49 [Left] O2 Sat by Pulse 98 98 Oximetry 01/15/17 01/15/17 01/15/17 21:35 22:00 23:12 Temperature Pulse Rate 95 H 113 H 95 H Respiratory 16 16 24 Rate Blood Pressure Blood Pressure 130/63 128/62 120/90 [Left] O2 Sat by Pulse 100 100 96 Oximetry ED Medical Decision Making - Lab Data Result diagrams: 01/15/17 19:44 01/15/17 19:44 - EKG Data -: EKG Interpreted by Mo EKG shows normal: sinus rhythm, axis (normal), intervals (QTc:447ms, ), QRS complexes (normal), ST-T waves (no St/T changes, no STEMI) Rate: tachycardia (108 bpm) - Radiology Data Radiology results: report reviewed vq scan reviewed negative for perfusion defect or PE - Medical Decision Making Patient was ordered a CTA of the chest to rule out pulmonary embolism but the CT scanner is not working, patient ordered VQ scan VQ scan negative Emiliano discussed with Dr. Lozano, patient's acquisition marketing manager, recommends patient be admitted with heparin protocol and to have Dr. La vascular surgeon come and evaluate the patient in the morning for left upper extremity fistula revision. Critical care attestation.: If time is entered above; I have spent that time in minutes in the direct care of this critically ill patient, excluding procedure time. ED Disposition Clinical Impression: Subtherapeutic international normalized ratio (INR), Dyspnea, Dialysis AV fistula malfunction Disposition: OP ADMITTED IP TO THIS HOSP Is pt being admited?: Yes Condition: Stable
--- NOTE | 2017-01-15 22:49 | XRay Report ---
FINAL REPORT EXAM: XR CHEST ROUTINE 2V HISTORY: Shortness of breath TECHNIQUE: AP portable view of the chest. PRIORS: None. FINDINGS: There are bilateral central venous catheters. There bilateral axillary stents. The cardiomediastinal silhouette appears normal. The lungs are clear. The bones and soft tissues are unremarkable. IMPRESSION: No evidence of acute cardiopulmonary disease.
--- NOTE | 2017-01-15 23:24 | Nuclear Medicine Report ---
FINAL REPORT EXAM: NM LUNG SCAN PERF/VENT HISTORY: rule out PE TECHNIQUE: The nuclear medicine ventilation perfusion study was performed. 15 cc of the Xenon-133 gas were used for the for the ventilation study and 5.0 mCi of technetium 99m MAA for the perfusion study. Images were acquired in the standard projections. Correlation is made with chest radiograph performed on the same date. PRIORS: None. FINDINGS: There is normal distribution of the radiopharmaceutical from both the ventilation and perfusion studies. There are no defects. IMPRESSION: Normal VQ scan. No evidence of PE.
[2017-01-16 01:40] LABS: Hematocrit 33.6 % (35.5-45.6); Hemoglobin 11.2 gm/dl (11.8-15.2)
[2017-01-16 01:50] LABS: INR 1.27 (0.87-1.13)
[2017-01-16] MEDS ORDERED: TYLENOL PO PRN (02:44)
[2017-01-16] MEDS ORDERED: DULCOLAX PR PRN (02:44)
--- NOTE | 2017-01-16 02:46 | History and Physical Report ---
History of Present Illness Date of examination: 01/16/17 History of present illness: 46-year-old man with a history of polycystic kidney disease, clotting disorder which she cannot recall the name, chronic neuropathy and chronic pain comes emergency room because the experience shortness of breath yesterday. The patient was diagnosed with pulmonary emboli 2 weeks ago. He stated that last week is INR was greater than 5, he was told to stop taking Coumadin but was not told when to restart. He has not restarted his Coumadin. Patient stated that his AV graft has been dislodged 2 weeks ago, he was scheduled to have intervention but he was hospitalized at [facility] for pulmonary emboli. Also complaining of abdominal pain, left lower quadrant, described as sharp pain, intermittent in nature lasting for about 1 minute, intensity 4/10, no radiation, he cannot identify exacerbating factor, better which pain medications Patient denies chest pain, palpitation, shortness of breath, cough, abdominal pain, hematochezia, dysuria, frequency, focal weakness, dysarthria, fever chills , polydipsia polyuria, hot or cold intolerance, easy bruisability, or rash or bleeding from mucosal membrane, rhinorrhea, epistaxis, earache, tinnitus, blurry vision, eye discharge, anxiety, depression. Other review of systems negative PAST SURGICAL HISTORY: Back surgery 2 coronary several AV fistulas, neck surgery SOCIAL HISTORY: Denies alcohol tobacco, drugs FAMILY HISTORY: Hypertension Medications and Allergies Allergies Allergy/AdvReac Type Severity Reaction Status Date / Time levetiracetam [From Keppra] Allergy Hives Verified 05/03/15 10:34 nalbuphine HCl [From Nubain] AdvReac AGGRESSIVE Verified 12/29/16 10:31 OUT BURST Home Medications Medication Instructions Recorded Confirmed Last Taken Type Cyclobenzaprine HCl [Flexeril] 10 mg PO QHS 06/08/15 01/15/17 1 Day Ago History 10 Calcitriol [Rocaltrol] 0.25 mcg PO QDAY #30 capsule 09/29/15 01/15/17 1 Day Ago Rx 0.25 Gemfibrozil [Lopid] 600 mg PO BID #60 tablet 09/29/15 01/15/17 1 Day Ago Rx 600 Gabapentin [Neurontin] 100 mg PO TID 08/16/16 01/15/17 1 Day Ago History 100 diphenhydrAMINE [Benadryl CAP] 50 mg PO BID 08/22/16 01/15/17 1 Day Ago History 25 traZODone [Desyrel] 50 mg PO QHS 08/23/16 01/15/17 1 Day Ago History 50 Pantoprazole [Protonix TAB] 40 mg PO QDAY 09/14/16 01/15/17 1 Day Ago History 40 Pramipexole [Mirapex] 0.5 mg PO QHS 09/14/16 01/15/17 1 Day Ago History 1 Benzonatate [Tessalon Perles] 100 mg PO BID 10/25/16 01/15/17 1 Day Ago History 100 Folic Acid 1 mg PO BID 10/25/16 01/15/17 1 Day Ago History 1 Midodrine [Proamatine] 10 mg PO QAM 10/25/16 01/15/17 1 Day Ago History 10 ALBUTEROL Inhaler [ProAir HFA 1 puff IH QID PRN #1 inha 12/15/16 01/15/17 1 Day Ago Rx Inhaler] 8.5 Fluticasone/Salmeterol [Advair 1 puff IH BID 12/29/16 01/15/17 1 Day Ago History Diskus 250-50 mcg] 1 Oxycodone HCl/Acetaminophen 1 each PO Q6HR PRN 12/29/16 01/15/17 1 Day Ago History [Percocet 10/325 mg] 1 Warfarin [Coumadin] 5 mg PO QDAY 01/15/17 01/15/17 1 Week Ago History 5 Zolpidem [Ambien] 5 mg PO QHS PRN 01/15/17 01/15/17 1 Day Ago History 5 Active Meds: Active Medications Heparin Sodium/Sodium Chloride (Heparin/ 0.45% Nacl-25,000 Unit/500 Ml) 25,000 unit in 500 mls @ 30 mls/hr IV TITR KYRA; 1,500 UNITS/HR PRN Reason: Protocol Exam - Physical Exam Narrative exam: Gen. appearance: Patient lying in bed, no apparent distress HEENT: Normocephalic, atraumatic, pupils equally round and reactive to light, extraocular movement intact, and no sclericterus,. No JVD or thyromegaly or nodule,neck supple, no carotid bruit ,mucous membranes moist, no exudate or erythema Heart: S1, S2, regular rate and rhythm Lungs: Clear to auscultation bilaterally, breathing comfortable Abdomen: Positive bowel sounds, tender in llq,, nondistended, no organomegaly Extremity: No edema, cyanosis, clubbing Skin: No rash, nodules, warm, dry Neuro: Oriented 3, cranial nerves II-12 intact, speech is fluent, motor and sensory intact - Constitutional Vitals: Temp Pulse Resp BP Pulse Ox 99 F 76 18 128/64 97 01/15/17 18:55 01/16/17 01:00 01/16/17 01:00 01/16/17 01:00 01/16/17 01:00 Results - Labs CBC & Chem 7: 01/16/17 01:27 01/15/17 19:44 Labs: Abnormal lab results 01/15/17 01/15/17 01/15/17 Range/Units 19:44 19:44 19:44 RBC 3.52 L (3.65-5.03) M/mm3 Hgb (11.8-15.2) gm/dl Hct 34.5 L (35.5-45.6) % MCV 98 H (84-94) fl MCH 34 H (28-32) pg RDW 16.8 H (13.2-15.2) % Dewitt % (Auto) 9.2 H (0.0-7.3) % Eos % (Auto) 4.9 H (0.0-4.3) % Seg Neutrophils % 70.8 H (40.0-70.0) % PT 21.1 H (12.2-14.9) Sec. INR 1.82 H (0.87-1.13) APTT 41.0 H (24.2-36.6) Sec. D-Dimer 656.96 H (0-234) ng/mlDDU Chloride 96.9 L (98-107) mmol/L BUN 26 H (9-20) mg/dL Creatinine 4.8 H (0.8-1.5) mg/dL Troponin T 0.092 H (0.00-0.029) ng/mL 01/16/17 01/16/17 Range/Units 01:27 01:27 RBC (3.65-5.03) M/mm3 Hgb 11.2 L (11.8-15.2) gm/dl Hct 33.6 L (35.5-45.6) % MCV (84-94) fl MCH (28-32) pg RDW (13.2-15.2) % Dewitt % (Auto) (0.0-7.3) % Eos % (Auto) (0.0-4.3) % Seg Neutrophils % (40.0-70.0) % PT 15.8 H (12.2-14.9) Sec. INR 1.27 H (0.87-1.13) APTT (24.2-36.6) Sec. D-Dimer (0-234) ng/mlDDU Chloride (98-107) mmol/L BUN (9-20) mg/dL Creatinine (0.8-1.5) mg/dL Troponin T (0.00-0.029) ng/mL Assessment and Plan V/Q negative for acute PE Abdominal pain History of pulmonary emboli with subtherapeutic INR Malfunctioning AV fistula Polycystic kidney disease Chronic pain Admit to medicine [place] CAT scan of the abdomen and pelvis Start heparin drip, consult renal, vascular DVT prophylaxis initiated, start IV morphine
[2017-01-16] MEDS ORDERED: MORPHINE IV ONE (02:53)
--- NOTE | 2017-01-16 04:30 | Cat Scan Report ---
FINAL REPORT PROCEDURE: CT ABDOMEN PELVIS WO CON TECHNIQUE: Computerized axial tomography of the abdomen and pelvis was performed without intravenous contrast. This study is performed without intravascular contrast material and its sensitivity for abdominal and pelvic pathology, including neoplasms, inflammation, abscess, free fluid, thrombosis, arterial dissection and infarction, is reduced compared with a contrast enhanced study. HISTORY: llq pain COMPARISON: No prior studies are available for comparison. FINDINGS: Visualized lower thorax: There are calcified pleural plaques posteriorly bilaterally.. Liver: Normal size and attenuation. Spleen: Normal size and attenuation. Gallbladder and biliary system: Normal. Pancreas: Normal. Adrenals: Normal. Kidneys: There are no kidneys.. GI tract: There is no bowel obstruction, colitis or enteritis. The appendix is normal.. Lymph nodes and mesentery: Normal. Vasculature: There is diffuse calcified atherosclerosis. There is no aneurysm.. Bladder: Normal. Reproductive organs: Normal. Peritoneum: There is no ascites or free air, abscess or adenopathy.. Musculoskeletal structures: No significant abnormality. Other: There is a ventral hernia containing fat only.. IMPRESSION: There are no kidneys.. There is no bowel obstruction, colitis or enteritis. The appendix is normal.. There is no diverticulitis per There is no ascites or free air, abscess or adenopathy.. .
[2017-01-16] MEDS: HEPARIN 10,000 UNITS/10 ML IV ONE ×2 (05:40→05:46)
[2017-01-16] MEDS: HEPARIN/ 0.45% NACL-25,000 UNIT/500 ML 25,000 UNIT/500 ML BAG IV SCH (05:41)
[2017-01-16] MEDS: MORPHINE IV PRN ×4 (05:57→22:42)
[2017-01-16] MEDS ORDERED: HEPARIN 10,000 UNITS/10 ML IV ONE (06:00)
--- NOTE | 2017-01-16 09:00 | Progress Note ---
Assessment and Plan Assessment and plan: Admitted overnight Patient is a 46-year-old man with a history of polycystic kidney disease status post bilateral nephrectomy with end-stage renal disease on hemodialysis, osteoarthritis, GERD, coagulation disorder, bilateral PE on anticoagulation and seizure disorder who presented with shortness of breath. Chest x-ray was unremarkable, VQ scan was normal, CT abdomen and pelvis without contrast showed no kidneys and was unremarkable for acute processes. 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 -Bilateral PE, acute on chronic: On IV heparin drip -End-stage renal disease on hemodialysis: Nephrology to follow -Anemia chronic disease -Malfunction of hemodialysis access: Await vascular surgery evaluation History Interval history: Patient seen and examined. Follow up on shortness of breath which has resolved. Overnight uneventful. No cp, sob, n/v or severe headaches. Imaging, old records, testing, labs, nursing notes reviewed. Plan discussed with patient. Hospitalist Physical - Physical exam Narrative exam: GEN: WDWN, obese BMI 40.7 NAD, AWAKE, ALERT, ORIENTATED 3 HEENT: NCAT, PERRL, EOMI, OP CLEAR NECK: SUPPLE, NO THYROMEGALY, NO JVD, NO LAD CVS: RRR, NORMAL S1S2 LUNGS/CHEST: CTAB, NORMAL CHEST EXPANSION B, GOOD AIR ENTRY B ABD: SOFT NTND, GBS, NO REBOUND OR GUARDING EXT/SKIN: NO SIGNIFICANT EDEMA OR RASH MSK: FROM X 4 EXTREMITIES NEURO: CN 2-12 GROSSLY INTACT, NO new FOCAL DEFICITS PSY: CALM - Constitutional Vitals: Temp Pulse Resp BP Pulse Ox 97.6 F 90 20 133/65 96 01/16/17 06:00 01/16/17 06:00 01/16/17 06:00 01/16/17 06:00 01/16/17 06:00 Results - Labs CBC & Chem 7: 01/16/17 01:27 01/15/17 19:44 Labs: Laboratory Last Values WBC 8.9 K/mm3 (4.5-11.0) 01/15/17 19:44 RBC 3.52 M/mm3 (3.65-5.03) L 01/15/17 19:44 Hgb 11.2 gm/dl (11.8-15.2) L 01/16/17 01:27 Hct 33.6 % (35.5-45.6) L 01/16/17 01:27 MCV 98 fl (84-94) H 01/15/17 19:44 MCH 34 pg (28-32) H 01/15/17 19:44 MCHC 34 % (32-34) 01/15/17 19:44 RDW 16.8 % (13.2-15.2) H 01/15/17 19:44 Plt Count 328 K/mm3 (140-440) 01/16/17 01:27 Lymph % (Auto) 13.6 % (13.4-35.0) 01/15/17 19:44 Wilbarger % (Auto) 9.2 % (0.0-7.3) H 01/15/17 19:44 Eos % (Auto) 4.9 % (0.0-4.3) H 01/15/17 19:44 Baso % (Auto) 1.5 % (0.0-1.8) 01/15/17 19:44 Lymph # 1.2 K/mm3 (1.2-5.4) 01/15/17 19:44 Wilbarger # 0.8 K/mm3 (0.0-0.8) 01/15/17 19:44 Eos # 0.4 K/mm3 (0.0-0.4) 01/15/17 19:44 Baso # 0.1 K/mm3 (0.0-0.1) 01/15/17 19:44 Seg Neutrophils % 70.8 % (40.0-70.0) H 01/15/17 19:44 Seg Neutrophils # 6.3 K/mm3 (1.8-7.7) 01/15/17 19:44 PT 15.8 Sec. (12.2-14.9) H 01/16/17 01:27 INR 1.27 (0.87-1.13) H 01/16/17 01:27 APTT 36.0 Sec. (24.2-36.6) 01/16/17 01:27 D-Dimer 656.96 ng/mlDDU (0-234) H 01/15/17 19:44 Sodium 140 mmol/L (137-145) 01/15/17 19:44 Potassium 4.3 mmol/L (3.6-5.0) 01/15/17 19:44 Chloride 96.9 mmol/L (98-107) L 01/15/17 19:44 Carbon Dioxide 26 mmol/L (22-30) 01/15/17 19:44 Anion Gap 21 mmol/L 01/15/17 19:44 BUN 26 mg/dL (9-20) H 01/15/17 19:44 Creatinine 4.8 mg/dL (0.8-1.5) H 01/15/17 19:44 Estimated GFR 13 ml/min 01/15/17 19:44 BUN/Creatinine Ratio 5.41 % 01/15/17 19:44 Glucose 91 mg/dL (75-100) 01/15/17 19:44 Calcium 8.9 mg/dL (8.4-10.2) 01/15/17 19:44 Troponin T 0.092 ng/mL (0.00-0.029) H 01/15/17 19:44 - Imaging and Cardiology CT scan - abdomen: report reviewed CT scan - pelvis: report reviewed
--- NOTE | 2017-01-16 09:46 | Admit Criteria Form ---
Admission Criteria Documentation: RENAL FAILURE, CHRONIC Clinical Indications for Admission to Inpatient Care (Place 'X' for any and all applicable criteria): Admission is indicated for ANY ONE of the following (1)(2)(3)(4)(5): [X]I. Inpatient admission required rather than observation care (Use Renal Failure, Chronic: Observation Care Criteria as appropriate) because of ANY ONE of the following: [ ]a) Volume overload or uremic symptoms (eg, clinically significant pulmonary edema, hypertension, pericarditis, acidosis) too severe for, or not responsive (eg, for over 24 hours) to emergency department or observation care dialysis or treatment regimen (11) [ ]b) Hemodynamic instability that is severe or persistent [X]c) Respiratory distress that is severe or persistent (11) [ ]d) Clinically significant electrolyte abnormality that requires inpatient care (eg,hyperkalemia with severe ECG findings)[B] [ ]e) Supplement O2 or respiratory therapy for over 24hrs that is performable only in acute inpatient setting [ ]f) Continuous IV infusion of anticoagulation, platelet inhibitor, vasoactive, or Antiarrhythmic medication (15), [ ]g) Pulmonary artery catheter monitoring [ ]h) Temporary pacemaker placement [ ]i) Emergent pericardiocentesis [X]j) Other condition, treatment or monitoring requiring inpatient admission [ ]II. Unexplained syncope [A] [ ]III. Recurrent seizures [ ]IV. Severe infections not treatable in outpatient setting (eg, peritonitis)(9 ) [ ]V. Cardiac arrhythmias of immediate concern [ ]. Encephalopathy [ ]VII.Bleeding abnormalities (eg, platelet dysfunction) with active (eg, gastrointestinal) bleeding Extended stay beyond goal length of stay may be needed for (3)(4)(35)(36): [ ]a) Continuing uremic complications [ ]b) Comorbidities or complications The original [employer] content created by [employer] has been revised. The portions of the content which have been revised are identified through the use of italic text or in bold, and [email or web address] has neither reviewed nor approved the modified material. All other unmodified content is copyright [employer]. Please see references footnoted in the original [email or web address] edition 2016 Admission Criteria Met: Yes
--- NOTE | 2017-01-16 16:40 | Consultation ---
History of Present Illness - Reason for Consult Consult date: 01/16/17 - History of Present Illness This patient is 45-year-old male that was admitted via the emergency room with shortness of breath. He was recently admitted to [facility] and diagnosed with acute bilateral pulmonary embolus. He was started on anticoagulation and discharged home on Coumadin. His INR was reportedly greater than 5, and the Coumadin was held. Apparently, the Coumadin was not restarted. His shortness of breath became worse, "As bad as when I first had the blood clots". He was evaluated by his ems instructor who recommended he go to the emergency room. His INR upon admission was 1.82, and has since dropped to 1.27. A Heparin drip was been started. A VQ scan was reported as negative for pulmonary embolus. The patient is well-known to our service. He is status post a left upper extremity HERO AV graft. Postoperatively the graft thrombosed. He was scheduled for a revision as an outpatient. Unfortunately the patient was admitted at [facility] with PE at the time of his surgery. It was recommended the procedure be postponed for an additional 6 weeks, to allow the patient to recover from his pulmonary embolus. A vascular surgery consult has been requested to further evaluate. Past History Past Medical History: dialysis, ESRD, hypertension, other (polycystic kidney disease, remote history of GI bleed while on Coumadin many years ago) Past Surgical History: Other (Cervical spine hardware, neurostimulator device, multiple previous long-term hemodialysis access in both upper extremities, multiple temporary hemodialysis catheter placement, he recently had a left upper extremity hero graft placed which has since thrombosed. He had a mechanical thrombectomy of his AV graft postoperatively. He is scheduled for a revision of the left upper extremity hero graft once he recovers from his pulmonary embolus. History of previous left chest port.) Social history: , lives with family (). denies: smoking, alcohol abuse Family history: no significant family history Medications and Allergies Allergies Allergy/AdvReac Type Severity Reaction Status Date / Time levetiracetam [From Keppra] Allergy Hives Verified 05/03/15 10:34 nalbuphine HCl [From Nubain] AdvReac AGGRESSIVE Verified 12/29/16 10:31 OUT BURST Home Medications Medication Instructions Recorded Confirmed Last Taken Type Cyclobenzaprine HCl [Flexeril] 10 mg PO QHS 06/08/15 01/15/17 1 Day Ago History 10 Calcitriol [Rocaltrol] 0.25 mcg PO QDAY #30 capsule 09/29/15 01/15/17 1 Day Ago Rx 0.25 Gemfibrozil [Lopid] 600 mg PO BID #60 tablet 09/29/15 01/15/17 1 Day Ago Rx 600 Gabapentin [Neurontin] 100 mg PO TID 08/16/16 01/15/17 1 Day Ago History 100 diphenhydrAMINE [Benadryl CAP] 50 mg PO BID 08/22/16 01/15/17 1 Day Ago History 25 traZODone [Desyrel] 50 mg PO QHS 08/23/16 01/15/17 1 Day Ago History 50 Pantoprazole [Protonix TAB] 40 mg PO QDAY 09/14/16 01/15/17 1 Day Ago History 40 Pramipexole [Mirapex] 0.5 mg PO QHS 09/14/16 01/15/17 1 Day Ago History 1 Benzonatate [Tessalon Perles] 100 mg PO BID 10/25/16 01/15/17 1 Day Ago History 100 Folic Acid 1 mg PO BID 10/25/16 01/15/17 1 Day Ago History 1 Midodrine [Proamatine] 10 mg PO QAM 10/25/16 01/15/17 1 Day Ago History 10 ALBUTEROL Inhaler [ProAir HFA 1 puff IH QID PRN #1 inha 12/15/16 01/15/17 1 Day Ago Rx Inhaler] 8.5 Fluticasone/Salmeterol [Advair 1 puff IH BID 12/29/16 01/15/17 1 Day Ago History Diskus 250-50 mcg] 1 Oxycodone HCl/Acetaminophen 1 each PO Q6HR PRN 12/29/16 01/15/17 1 Day Ago History [Percocet 10/325 mg] 1 Warfarin [Coumadin] 5 mg PO QDAY 01/15/17 01/15/17 1 Week Ago History 5 Zolpidem [Ambien] 5 mg PO QHS PRN 01/15/17 01/15/17 1 Day Ago History 5 Active Meds: Active Medications Acetaminophen (Tylenol) 650 mg PO Q4H PRN PRN Reason: Pain MILD(1-3)/Fever >100.5/SEPULVEDA Bisacodyl (Dulcolax) [address] QDAY PRN PRN Reason: Constipation unrelieved by MOM Heparin Sodium/Sodium Chloride (Heparin/ 0.45% Nacl-25,000 Unit/500 Ml) 25,000 unit in 500 mls @ 30 mls/hr IV TITR KYRA; 1,500 UNITS/HR PRN Reason: Protocol Last Titration: 01/16/17 14:21 Dose: 1,500 units/hr, 30 mls/hr Morphine Sulfate (Morphine) 2 mg IV Q4H PRN PRN Reason: Pain, Moderate (4-6) Last Admin: 01/16/17 12:44 Dose: 2 mg Review of Systems All systems: negative Exam - Constitutional Vitals: Temp Pulse Resp BP Pulse Ox 97.7 F 90 18 143/88 98 01/16/17 08:40 01/16/17 10:00 01/16/17 10:00 01/16/17 08:40 01/16/17 10:00 General appearance: Present: no acute distress, obese - EENT Eyes: Present: EOM intact ENT: hearing intact - Neck Neck: Present: supple - Respiratory Respiratory effort: normal (unlabored at rest on room air) - Extremities Extremities: abnormal (thrombosed left upper extremity AV graft) - Psychiatric Psychiatric: appropriate mood/affect, intact judgment & insight, cooperative - Neurologic Neurologic: no focal deficits Results - Labs CBC & Chem 7: 01/16/17 01:27 01/15/17 19:44 Assessment and Plan This patient is well-known to our service. He has end-stage renal disease and is status post a left upper extremity HERO graft. Postoperatively this thrombosed and was subsequently declotted. This re-thrombosed, and was felt to need operative revision. Unfortunately, the patient became short of breath and was admitted to [facility] with bilateral pulmonary emboli at the end of December when his surgery was scheduled. Elective declot and revision to his AV graft was recommended to be postponed at least 6 weeks following the pulmonary embolus. Following discharge from [facility]. His INR was noted to be greater than 5. The Coumadin was held, and apparently not restarted (by report). He developed worsening shortness of breath, and was sent to the emergency room for further evaluation. His INR was subtherapeutic upon admission. The CT scanner was malfunctioning, and unable to perform a CT angiogram at that time. A VQ scan was reported as normal without evidence of pulmonary embolus. Would recommend CT angiogram for additional pulmonary emboli (given the symptoms and subtherapeutic INR). Unsure if VQ scan results are reliable, as it reported no evidence of pulmonary embolus, despite a recent positive CTA. We will check venous duplex to evaluate for possible DVT. Should consider echocardiogram evaluating for possible right heart strain. Once completed the CT angiogram and echocardiogram results should be evaluated to be determine if the patient would benefit from thrombolytic therapy/EKOS of his pulmonary emboli. He presently continues to complain of shortness of breath following his PE. This could be exacerbated following the declot and revision to his AV graft. - Patient Problems (1) Hemodialysis graft malfunction Current Visit: No Status: Acute Qualifiers: Encounter type: E (2) Dyspnea Current Visit: Yes Status: Acute Qualifiers: Dyspnea type: D (3) History of pulmonary embolism Current Visit: No Status: Acute (4) Subtherapeutic international normalized ratio (INR) Current Visit: Yes Status: Acute (5) End stage renal disease on dialysis Current Visit: No Status: Chronic
[2017-01-17] MEDS: HEPARIN/ 0.45% NACL-25,000 UNIT/500 ML 25,000 UNIT/500 ML BAG IV SCH (01:11)
[2017-01-17] MEDS: BENADRYL IV PRN ×3 (02:48→18:03)
[2017-01-17] MEDS: MORPHINE IV PRN ×4 (02:49→21:14)
[2017-01-17 05:53] LABS: Hematocrit 31.8 % (35.5-45.6); Hemoglobin 10.7 gm/dl (11.8-15.2); Mean Corpuscular HGB Conc 34 % (32-34); Mean Corpuscular Hemoglobin 33 pg (28-32); Mean Corpuscular Volume 99 fl (84-94); Platelet Count 334 K/mm3 (140-440); Red Blood Count 3.21 M/mm3 (3.65-5.03); Red Cell Distribution Width 16.6 % (13.2-15.2); White Blood Count 6.3 K/mm3 (4.5-11.0)
[2017-01-17 06:12] LABS: BUN/Creatinine Ratio 6.54; Calcium 8.3 mg/dL (8.4-10.2); Potassium 4.7 mmol/L (3.6-5.0)
[2017-01-17] MEDS ORDERED: NACL ONE (09:04)
--- NOTE | 2017-01-17 10:36 | Cat Scan Report ---
CTA CHEST: History: Shortness of breath. Technique: Helical CT following IV contrast. Pulmonary embolus protocol. Sagittal and coronal reformatted images. Rotational MIP images. Findings: Correlation is made with the VQ scan performed 01/15/17. Contrast bolus is adequate. Small to medium bilateral nonocclusive pulmonary emboli are identified. There is a small amount of clot in the distal right main pulmonary artery which extends to the second and third order arterial branches leading to the right lower lobe. There is a much smaller nonocclusive pulmonary embolus in a third order arterial branches leading to the left lower lobe. No large central pulmonary embolus. There is mild pleural thickening with scattered calcifications posteriorly in both lungs. This probably represents chronic sequela of complex pleural effusions. There is minor linear scarring in the lower lobes as well. Otherwise, the lungs are clear. The thyroid gland, tracheobronchial tree, esophagus, heart, pericardium, and bony thorax are unremarkable. Impression: Positive for pulmonary embolus as outlined above. These findings were discussed with SHASTA Chandra, at 1025 hrs.
--- NOTE | 2017-01-17 12:04 | Progress Note ---
Assessment and Plan Assessment and plan: Patient is a 46-year-old man with a history of polycystic kidney disease status post bilateral nephrectomy with end-stage renal disease on hemodialysis, osteoarthritis, GERD, coagulation disorder, bilateral PE on anticoagulation and seizure disorder who presented with shortness of breath. Chest x-ray was unremarkable, VQ scan was normal, CT abdomen and pelvis without contrast showed no kidneys and was unremarkable for acute processes. 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 -Bilateral PE, acute on chronic: On IV heparin drip -End-stage renal disease on hemodialysis: Nephrology to follow -Anemia chronic disease -Malfunction of hemodialysis access: Await vascular surgery evaluation History Interval history: Patient seen and examined. Follow up on shortness of breath which has resolved. Overnight uneventful. No cp, sob, n/v or severe headaches. Imaging, old records, testing, labs, nursing notes reviewed. Plan discussed with patient. Hospitalist Physical - Physical exam Narrative exam: GEN: WDWN, obese BMI 40.7 NAD, AWAKE, ALERT, ORIENTATED 3 HEENT: NCAT, PERRL, EOMI, OP CLEAR NECK: SUPPLE, NO THYROMEGALY, NO JVD, NO LAD CVS: RRR, NORMAL S1S2 LUNGS/CHEST: CTAB, NORMAL CHEST EXPANSION B, GOOD AIR ENTRY B ABD: SOFT NTND, GBS, NO REBOUND OR GUARDING EXT/SKIN: NO SIGNIFICANT EDEMA OR RASH MSK: FROM X 4 EXTREMITIES NEURO: CN 2-12 GROSSLY INTACT, NO new FOCAL DEFICITS PSY: CALM - Constitutional Vitals: Temp Pulse Resp BP Pulse Ox 97.4 F L 79 20 125/57 99 01/17/17 09:46 01/17/17 09:46 01/17/17 12:02 01/17/17 09:46 01/17/17 09:46 General appearance: Present: no acute distress, obese Results - Labs CBC & Chem 7: 01/17/17 05:04 01/17/17 05:04 Labs: Laboratory Last Values WBC 6.3 K/mm3 (4.5-11.0) 01/17/17 05:04 RBC 3.21 M/mm3 (3.65-5.03) L 01/17/17 05:04 Hgb 10.7 gm/dl (11.8-15.2) L 01/17/17 05:04 Hct 31.8 % (35.5-45.6) L 01/17/17 05:04 MCV 99 fl (84-94) H 01/17/17 05:04 MCH 33 pg (28-32) H 01/17/17 05:04 MCHC 34 % (32-34) 01/17/17 05:04 RDW 16.6 % (13.2-15.2) H 01/17/17 05:04 Plt Count 334 K/mm3 (140-440) 01/17/17 05:04 Lymph % (Auto) 22.1 % (13.4-35.0) 01/17/17 05:04 [place] % (Auto) 8.1 % (0.0-7.3) H 01/17/17 05:04 Eos % (Auto) 6.0 % (0.0-4.3) H 01/17/17 05:04 Baso % (Auto) 1.0 % (0.0-1.8) 01/17/17 05:04 Lymph # 1.4 K/mm3 (1.2-5.4) 01/17/17 05:04 [place] # 0.5 K/mm3 (0.0-0.8) 01/17/17 05:04 Eos # 0.4 K/mm3 (0.0-0.4) 01/17/17 05:04 Baso # 0.1 K/mm3 (0.0-0.1) 01/17/17 05:04 Seg Neutrophils % 62.8 % (40.0-70.0) 01/17/17 05:04 Seg Neutrophils # 4.0 K/mm3 (1.8-7.7) 01/17/17 05:04 PT 15.8 Sec. (12.2-14.9) H 01/16/17 01:27 INR 1.27 (0.87-1.13) H 01/16/17 01:27 APTT 36.0 Sec. (24.2-36.6) 01/16/17 01:27 D-Dimer 656.96 ng/mlDDU (0-234) H 01/15/17 19:44 Heparin Anti-Xa Level 0.25 U.I./ml (0.3-0.7) L 01/17/17 05:04 Sodium 142 mmol/L (137-145) 01/17/17 05:04 Potassium 4.7 mmol/L (3.6-5.0) 01/17/17 05:04 Chloride 100.0 mmol/L (98-107) 01/17/17 05:04 Carbon Dioxide 24 mmol/L (22-30) 01/17/17 05:04 Anion Gap 23 mmol/L 01/17/17 05:04 BUN 55 mg/dL (9-20) H 01/17/17 05:04 Creatinine 8.4 mg/dL (0.8-1.5) H D 01/17/17 05:04 Estimated GFR 7 ml/min 01/17/17 05:04 BUN/Creatinine Ratio 6.54 % 01/17/17 05:04 Glucose 95 mg/dL (75-100) 01/17/17 05:04 Calcium 8.3 mg/dL (8.4-10.2) L 01/17/17 05:04 Troponin T 0.092 ng/mL (0.00-0.029) H 01/15/17 19:44
[2017-01-17] MEDS ORDERED: NACL 0.9% 100 ML IV PRN (13:33)
[2017-01-17] MEDS ORDERED: HEPARIN 10,000 UNITS/10 ML IV PRN (13:33)
--- NOTE | 2017-01-17 14:18 | Progress Note ---
Assessment and Plan Venous duplex was negative for DVT. CTA was positive for bilat PE, but appear small and non-occlusive. Does not appear to warrant thrombolysis. Continue anticoagulation. Delay elective intervention on thrombosed DEION VALLES AV Graft until pt has recovered from PE at least 6 wks. Pt will need to f/u in our office as an outpt. - Patient Problems (1) Hemodialysis graft malfunction Current Visit: No Status: Acute Qualifiers: Encounter type: E (2) Dyspnea Current Visit: Yes Status: Acute Qualifiers: Dyspnea type: D (3) History of pulmonary embolism Current Visit: No Status: Acute (4) Subtherapeutic international normalized ratio (INR) Current Visit: Yes Status: Acute (5) End stage renal disease on dialysis Current Visit: No Status: Chronic Subjective Date of service: 01/17/17 Interval history: Pt awake and alert without specific complaint at present. Objective - Constitutional Vitals: Vital Signs - 12hr 01/17/17 01/17/17 01/17/17 06:07 08:00 09:04 Temperature 98.2 F Pulse Rate 83 Pulse Rate [ 74 Right Radial] Respiratory 18 Rate Blood Pressure 121/64 [Right Calf] O2 Sat by Pulse 98 98 Oximetry 01/17/17 01/17/17 09:46 12:02 Temperature 97.4 F L Pulse Rate Pulse Rate [ 79 Right Radial] Respiratory 18 20 Rate Blood Pressure 125/57 [Right Calf] O2 Sat by Pulse 99 Oximetry General appearance: Present: no acute distress - EENT Eyes: EOM intact ENT: hearing intact - Respiratory Respiratory effort: normal (unlabored at rest on room air ) Extremities: no ischemia - Neurologic Neurologic: no focal deficits - Psychiatric Psychiatric: appropriate mood/affect, intact judgment & insight, cooperative - Labs CBC & Chem 7: 01/17/17 05:04 01/17/17 05:04 Labs: Abnormal lab results 01/16/17 01/17/17 01/17/17 Range/Units 19:31 05:04 05:04 RBC 3.21 L (3.65-5.03) M/mm3 Hgb 10.7 L (11.8-15.2) gm/dl Hct 31.8 L (35.5-45.6) % MCV 99 H (84-94) fl MCH 33 H (28-32) pg RDW 16.6 H (13.2-15.2) % [place] % (Auto) 8.1 H (0.0-7.3) % Eos % (Auto) 6.0 H (0.0-4.3) % Heparin Anti-Xa Level 0.21 L (0.3-0.7) U.I./ml BUN 55 H (9-20) mg/dL Creatinine 8.4 H D (0.8-1.5) mg/dL Calcium 8.3 L (8.4-10.2) mg/dL 01/17/17 Range/Units 05:04 RBC (3.65-5.03) M/mm3 Hgb (11.8-15.2) gm/dl Hct (35.5-45.6) % MCV (84-94) fl MCH (28-32) pg RDW (13.2-15.2) % [place] % (Auto) (0.0-7.3) % Eos % (Auto) (0.0-4.3) % Heparin Anti-Xa Level 0.25 L (0.3-0.7) U.I./ml BUN (9-20) mg/dL Creatinine (0.8-1.5) mg/dL Calcium (8.4-10.2) mg/dL
[2017-01-17] MEDS: PROCRIT IV PRN (18:05)
[2017-01-17] MEDS: HEPARIN IV PRN (18:11)
--- NOTE | 2017-01-17 18:13 | Consultation ---
History of Present Illness - Reason for Consult Consult date: 01/17/17 - History of Present Illness pt was seen and examined during dialysis via right IJ tunneled catheter around 4.40 pm today. Alert, oriented, BP-130/60,P-76, afebrile. Lungs- diminished breath sounds in bases, Heart-S1,S2 regular, Ext-1+ edema. Tolerating UF Past History Past Medical History: dialysis, ESRD, hypertension, other (polycystic kidney disease, remote history of GI bleed while on Coumadin many years ago) Past Surgical History: Other (Cervical spine hardware, neurostimulator device, multiple previous long-term hemodialysis access in both upper extremities, multiple temporary hemodialysis catheter placement, he recently had a left upper extremity hero graft placed which has since thrombosed. He had a mechanical thrombectomy of his AV graft postoperatively. He is scheduled for a revision of the left upper extremity hero graft once he recovers from his pulmonary embolus. History of previous left chest port.) Social history: , lives with family (). denies: smoking, alcohol abuse Family history: no significant family history Medications and Allergies Allergies Allergy/AdvReac Type Severity Reaction Status Date / Time levetiracetam [From Keppra] Allergy Hives Verified 05/03/15 10:34 nalbuphine HCl [From Nubain] AdvReac AGGRESSIVE Verified 12/29/16 10:31 OUT BURST Home Medications Medication Instructions Recorded Confirmed Last Taken Type Cyclobenzaprine HCl [Flexeril] 10 mg PO QHS 06/08/15 01/15/17 1 Day Ago History 10 Calcitriol [Rocaltrol] 0.25 mcg PO QDAY #30 capsule 09/29/15 01/15/17 1 Day Ago Rx 0.25 Gemfibrozil [Lopid] 600 mg PO BID #60 tablet 09/29/15 01/15/17 1 Day Ago Rx 600 Gabapentin [Neurontin] 100 mg PO TID 08/16/16 01/15/17 1 Day Ago History 100 diphenhydrAMINE [Benadryl CAP] 50 mg PO BID 08/22/16 01/15/17 1 Day Ago History 25 traZODone [Desyrel] 50 mg PO QHS 08/23/16 01/15/17 1 Day Ago History 50 Pantoprazole [Protonix TAB] 40 mg PO QDAY 09/14/16 01/15/17 1 Day Ago History 40 Pramipexole [Mirapex] 0.5 mg PO QHS 09/14/16 01/15/17 1 Day Ago History 1 Benzonatate [Tessalon Perles] 100 mg PO BID 10/25/16 01/15/17 1 Day Ago History 100 Folic Acid 1 mg PO BID 10/25/16 01/15/17 1 Day Ago History 1 Midodrine [Proamatine] 10 mg PO QAM 10/25/16 01/15/17 1 Day Ago History 10 ALBUTEROL Inhaler [ProAir HFA 1 puff IH QID PRN #1 inha 12/15/16 01/15/17 1 Day Ago Rx Inhaler] 8.5 Fluticasone/Salmeterol [Advair 1 puff IH BID 12/29/16 01/15/17 1 Day Ago History Diskus 250-50 mcg] 1 Oxycodone HCl/Acetaminophen 1 each PO Q6HR PRN 12/29/16 01/15/17 1 Day Ago History [Percocet 10/325 mg] 1 Warfarin [Coumadin] 5 mg PO QDAY 01/15/17 01/15/17 1 Week Ago History 5 Zolpidem [Ambien] 5 mg PO QHS PRN 01/15/17 01/15/17 1 Day Ago History 5 Active Meds: Active Medications Acetaminophen (Tylenol) 650 mg PO Q4H PRN PRN Reason: Pain MILD(1-3)/Fever >100.5/SEPULVEDA Bisacodyl (Dulcolax) 10 mg TN QDAY PRN PRN Reason: Constipation unrelieved by MOM Diphenhydramine HCl (Benadryl) 25 mg IV Q6H PRN PRN Reason: Itching Last Admin: 01/17/17 18:03 Dose: 25 mg Epoetin Will (Procrit) 8,400 unit IV JOSE PRN PRN Reason: hemodialysis Last Admin: 01/17/17 18:05 Dose: 8,400 unit Heparin Sodium (Porcine) (Heparin 10,000 Units/10 Ml) 3,000 unit IV JOSE PRN PRN Reason: hemodialysis Heparin Sodium (Porcine) (Heparin) 5,000 unit IV JOSE PRN PRN Reason: hemodialysis Heparin Sodium/Sodium Chloride (Heparin/ 0.45% Nacl-25,000 Unit/500 Ml) 25,000 unit in 500 mls @ 30 mls/hr IV TITR KYRA; 1,500 UNITS/HR PRN Reason: Protocol Last Titration: 01/17/17 07:13 Dose: 1,700 units/hr, 34 mls/hr Sodium Chloride (Nacl 0.9%) 100 mls @ 999 mls/hr IV JOSE PRN PRN Reason: Hypotension Morphine Sulfate (Morphine) 2 mg IV Q4H PRN PRN Reason: Pain, Moderate (4-6) Last Admin: 01/17/17 12:02 Dose: 2 mg Exam - Constitutional Vitals: Temp Pulse Resp BP Pulse Ox 97.9 F 92 H 18 158/50 99 01/17/17 14:32 01/17/17 17:45 01/17/17 14:32 01/17/17 17:45 01/17/17 09:46 Results - Labs CBC & Chem 7: 01/17/17 05:04 01/17/17 05:04 Labs: Abnormal lab results 01/16/17 01/17/17 01/17/17 Range/Units 19:31 05:04 05:04 RBC 3.21 L (3.65-5.03) M/mm3 Hgb 10.7 L (11.8-15.2) gm/dl Hct 31.8 L (35.5-45.6) % MCV 99 H (84-94) fl MCH 33 H (28-32) pg RDW 16.6 H (13.2-15.2) % [place] % (Auto) 8.1 H (0.0-7.3) % Eos % (Auto) 6.0 H (0.0-4.3) % Heparin Anti-Xa Level 0.21 L (0.3-0.7) U.I./ml BUN 55 H (9-20) mg/dL Creatinine 8.4 H D (0.8-1.5) mg/dL Calcium 8.3 L (8.4-10.2) mg/dL 01/17/17 Range/Units 05:04 RBC (3.65-5.03) M/mm3 Hgb (11.8-15.2) gm/dl Hct (35.5-45.6) % MCV (84-94) fl MCH (28-32) pg RDW (13.2-15.2) % [place] % (Auto) (0.0-7.3) % Eos % (Auto) (0.0-4.3) % Heparin Anti-Xa Level 0.25 L (0.3-0.7) U.I./ml BUN (9-20) mg/dL Creatinine (0.8-1.5) mg/dL Calcium (8.4-10.2) mg/dL
[2017-01-18] MEDS: BENADRYL IV PRN ×3 (01:41→15:28)
[2017-01-18] MEDS: MORPHINE IV PRN ×5 (01:41→21:48)
[2017-01-18 07:14] LABS: Hematocrit 32.7 % (35.5-45.6); Hemoglobin 10.8 gm/dl (11.8-15.2)
--- NOTE | 2017-01-18 09:19 | Consultation ---
RENAL CONSULTATION HISTORY OF PRESENT ILLNESS: This 45-year-old male with a history of end-stage renal disease, hypertension, and polycystic kidney disease, came to the Emergency Room with complaints of shortness of breath. The patient underwent a VQ scan, which was negative for pulmonary embolism. He had CT abdomen and pelvis without contrast, which showed no bowel obstruction or colitis. No kidneys due to previous nephrectomy. Chest CT angio was done today on 01/17/2017, which was reported to be positive for pulmonary embolus in the distal right main pulmonary artery, which extends to the second and third-order arterial branches leading to the right lower lobe. The patient is currently on a heparin drip. He was recently admitted to [facility] and diagnosed with bilateral pulmonary embolus and was started on anticoagulation and was followed by Dr. Salazar, monkey keeper. His INR was more than 5 and Coumadin was held but not started. The patient states that about 4 months ago, he had a left upper extremity HeRo AV graft, but not thrombosed. The patient has been on hemodialysis via right internal jugular tunneled catheter on Sunday, Sunday and Sunday at [facility]. PAST MEDICAL HISTORY: History of polycystic kidney disease, status post bilateral nephrectomy; end-stage renal disease; chronic back pain; neurostimulator device and cervical spine hardware. Failed dialysis access accesses, fluid overload. PERSONAL HISTORY: Denies smoking, alcohol, or drug abuse. FAMILY HISTORY: Family history positive for kidney disease. ALLERGIES: KEPPRA and NUBAIN. HOME MEDICATIONS: Flexeril 10 mg at bedtime, gabapentin 100 mg t.i.d., trazodone 50 mg once a day, Protonix 40 mg once a day, Mirapex 0.5 mg at bedtime, warfarin 5 mg a day. REVIEW OF SYSTEMS: The patient denies headache or dizziness. Complains of generalized weakness. Gets shortness of breath on exertion. Denies nausea, vomiting, or diarrhea. Denies coughing up blood. Denies rectal bleeding. Has no urine output. Denies fever or chills. Other review of systems reviewed and negative. The patient states that he lost nearly 100 pounds over the past 1 year. PHYSICAL EXAMINATION: GENERAL: The patient is alert, oriented, well developed, obese male. VITAL SIGNS: Blood pressure 136/60, pulse 76, afebrile. EYES: Pupils reactive. Conjunctivae pink. Lips noncyanotic. NECK: No JVD. No thyroid enlargement. LUNGS: Diminished breath sounds in bases. HEART: S1, S2 regular. ABDOMEN: Soft, bowel sounds present, nontender. EXTREMITIES: 1+ edema. The patient has right internal jugular tunneled catheter. Left upper arm HeRo graft, has no bruit. Able to move all extremities. LABORATORY DATA: WBC 6.3, hemoglobin 10.7, hematocrit 31.8, platelets 334,000. BUN 55, creatinine 8.4, sodium 4.7, calcium 8.3. ASSESSMENT AND PLAN: 1.Pulmonary embolism. 2.Subtherapeutic INR. 3.Chronic back pain. 4.Malfunctioning dialysis access. 5.Anemia in chronic kidney disease. 6.Peripheral edema/fluid overload. The patient underwent a CT angiogram of the chest. Hemodialysis as ordered with ultrafiltration as tolerated. Adjust medications per renal function. JOB# [id number] BARBRA/KASH
--- NOTE | 2017-01-18 09:32 | Progress Note ---
Assessment and Plan - Patient Problems (1) End stage renal disease on dialysis Current Visit: No Status: Chronic Plan to address problem: HD on M/W/F-UF as tolerated, may need extra day for ultrafiltration to acheive target weight, pt has tendency for fluid overload. Recent H/O Pulmonary embolism ,on anticoagulation with warfarin. Discussed with -hospitalist (2) Hemodialysis graft malfunction Current Visit: No Status: Acute Qualifiers: Encounter type: E (3) History of pulmonary embolism Current Visit: No Status: Acute (4) Neuropathy Current Visit: No Status: Chronic (5) Pulmonary embolism Current Visit: No Status: Acute Qualifiers: Pulmonary embolism type: P Chronicity: C Acute cor pulmonale presence: A Subjective Date of service: 01/18/17 Interval history: alert, oriented, C/O itching Objective - Vital Signs Vital signs: Vital Signs - 12hr 01/17/17 01/18/17 01/18/17 22:00 00:00 05:54 Temperature 97.9 F 98.2 F Pulse Rate Pulse Rate [ 89 90 Right Radial] Respiratory 20 18 18 Rate Blood Pressure 129/59 124/53 [Right Calf] O2 Sat by Pulse 94 97 Oximetry 01/18/17 01/18/17 08:29 08:59 Temperature 97.8 F Pulse Rate 83 Pulse Rate [ 77 Right Radial] Respiratory 16 Rate Blood Pressure 108/53 [Right Calf] O2 Sat by Pulse 100 Oximetry - General Appearance General appearance: well-developed, obese EENT: mucous membranes moist Neck: no JVD Respiratory: Present: Decreased Breath Sounds Cardiology: regular Gastrointestinal: normoactive bowel sounds Neurologic: alert and oriented x3 Psychiatric: mood/affect appropriate, cooperative - Lab 01/18/17 05:13 01/17/17 05:04 Most recent lab results Calcium 8.3 mg/dL (8.4-10.2) L 01/17/17 05:04
[2017-01-18 10:36] LABS: INR 1.12 (0.87-1.13)
[2017-01-18] MEDS: HEPARIN/ 0.45% NACL-25,000 UNIT/500 ML 25,000 UNIT/500 ML BAG IV SCH (12:06)
[2017-01-18] MEDS ORDERED: PROAIR IH PRN (13:30)
[2017-01-18] MEDS ORDERED: NON-FORMULARY (Oxycodone Hcl/Acetaminophen [Percocet 10/325 Mg] 1 EACH) PO PRN (13:30)
--- NOTE | 2017-01-18 13:30 | Progress Note ---
Assessment and Plan Assessment and plan: Patient is a 46-year-old man with a history of polycystic kidney disease status post bilateral nephrectomy with end-stage renal disease on hemodialysis, osteoarthritis, GERD, coagulation disorder, bilateral PE on anticoagulation and seizure disorder who presented with shortness of breath. Chest x-ray was unremarkable, VQ scan was normal, CT abdomen and pelvis without contrast showed no kidneys and was unremarkable for acute processes. 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 -Bilateral PE, acute on chronic: On IV heparin drip -End-stage renal disease on hemodialysis: Nephrology to follow -Anemia chronic disease -Malfunction of hemodialysis access: Await vascular surgery evaluation==>no surgery until 6 weeks, so re-start Warfarin. History Interval history: Patient seen and examined. Follow up on shortness of breath which has resolved. Overnight uneventful. No cp, sob, n/v or severe headaches. Imaging, old records, testing, labs, nursing notes reviewed. Plan discussed with patient. Hospitalist Physical - Physical exam Narrative exam: GEN: WDWN, obese BMI 40.7 NAD, AWAKE, ALERT, ORIENTATED 3 HEENT: NCAT, PERRL, EOMI, OP CLEAR NECK: SUPPLE, NO THYROMEGALY, NO JVD, NO LAD CVS: RRR, NORMAL S1S2 LUNGS/CHEST: CTAB, NORMAL CHEST EXPANSION B, GOOD AIR ENTRY B ABD: SOFT NTND, GBS, NO REBOUND OR GUARDING EXT/SKIN: NO SIGNIFICANT EDEMA OR RASH MSK: FROM X 4 EXTREMITIES NEURO: CN 2-12 GROSSLY INTACT, NO new FOCAL DEFICITS PSY: CALM - Constitutional Vitals: Temp Pulse Resp BP Pulse Ox 97.8 F 82 16 116/54 100 01/18/17 08:29 01/18/17 12:47 01/18/17 08:29 01/18/17 12:47 01/18/17 08:29 General appearance: Present: no acute distress Results - Labs CBC & Chem 7: 01/18/17 05:13 01/17/17 05:04 Labs: Laboratory Last Values WBC 6.3 K/mm3 (4.5-11.0) 01/17/17 05:04 RBC 3.21 M/mm3 (3.65-5.03) L 01/17/17 05:04 Hgb 10.8 gm/dl (11.8-15.2) L 01/18/17 05:13 Hct 32.7 % (35.5-45.6) L 01/18/17 05:13 MCV 99 fl (84-94) H 01/17/17 05:04 MCH 33 pg (28-32) H 01/17/17 05:04 MCHC 34 % (32-34) 01/17/17 05:04 RDW 16.6 % (13.2-15.2) H 01/17/17 05:04 Plt Count 339 K/mm3 (140-440) 01/18/17 05:13 Lymph % (Auto) 22.1 % (13.4-35.0) 01/17/17 05:04 [place] % (Auto) 8.1 % (0.0-7.3) H 01/17/17 05:04 Eos % (Auto) 6.0 % (0.0-4.3) H 01/17/17 05:04 Baso % (Auto) 1.0 % (0.0-1.8) 01/17/17 05:04 Lymph # 1.4 K/mm3 (1.2-5.4) 01/17/17 05:04 [place] # 0.5 K/mm3 (0.0-0.8) 01/17/17 05:04 Eos # 0.4 K/mm3 (0.0-0.4) 01/17/17 05:04 Baso # 0.1 K/mm3 (0.0-0.1) 01/17/17 05:04 Seg Neutrophils % 62.8 % (40.0-70.0) 01/17/17 05:04 Seg Neutrophils # 4.0 K/mm3 (1.8-7.7) 01/17/17 05:04 PT 14.3 Sec. (12.2-14.9) 01/18/17 10:09 INR 1.12 (0.87-1.13) 01/18/17 10:09 APTT 36.0 Sec. (24.2-36.6) 01/16/17 01:27 D-Dimer 656.96 ng/mlDDU (0-234) H 01/15/17 19:44 Heparin Anti-Xa Level 0.38 U.I./ml (0.3-0.7) 01/17/17 13:34 Sodium 142 mmol/L (137-145) 01/17/17 05:04 Potassium 4.7 mmol/L (3.6-5.0) 01/17/17 05:04 Chloride 100.0 mmol/L (98-107) 01/17/17 05:04 Carbon Dioxide 24 mmol/L (22-30) 01/17/17 05:04 Anion Gap 23 mmol/L 01/17/17 05:04 BUN 55 mg/dL (9-20) H 01/17/17 05:04 Creatinine 8.4 mg/dL (0.8-1.5) H D 01/17/17 05:04 Estimated GFR 7 ml/min 01/17/17 05:04 BUN/Creatinine Ratio 6.54 % 01/17/17 05:04 Glucose 95 mg/dL (75-100) 01/17/17 05:04 Calcium 8.3 mg/dL (8.4-10.2) L 01/17/17 05:04 Troponin T 0.092 ng/mL (0.00-0.029) H 01/15/17 19:44
[2017-01-18] MEDS ORDERED: PERCOCET 5/325 PO PRN (13:49)
[2017-01-18] MEDS ORDERED: ROXICODONE PO PRN (13:49)
[2017-01-18] MEDS: NEURONTIN PO SCH ×2 (15:09→21:48)
--- NOTE | 2017-01-18 16:50 | Vascular Lab Report ---
LOWER EXTREMITY VENOUS DUPLEX: REASON FOR EXAM: Pulmonary embolism. COMMENTS ON THE RIGHT: All veins visualized are freely compressible without evidence of internal echogenicity. Flow is spontaneous and phasic throughout. COMMENTS ON THE LEFT: All veins visualized are freely compressible without evidence of internal echogenicity. Flow is spontaneous and phasic throughout. IMPRESSION: No evidence of acute or chronic deep venous thrombosis in either lower extremity.
[2017-01-18] MEDS ORDERED: COUMADIN PO SCH (17:00)
[2017-01-18] MEDS ORDERED: COUMADIN PO ONE (17:41)
[2017-01-18] MEDS ORDERED: PROVENTIL IH SCH (20:00)
[2017-01-18] MEDS: BROVANA NEBU IH SCH (20:14)
[2017-01-18] MEDS: PULMICORT IH SCH (20:14)
[2017-01-18] MEDS: BENADRYL PO SCH (21:26)
[2017-01-18] MEDS: FLEXERIL PO SCH (21:27)
[2017-01-18] MEDS: FOLVITE PO SCH (21:27)
[2017-01-18] MEDS: DESYREL PO SCH (21:27)
[2017-01-18] MEDS: LOPID PO SCH (21:33)
[2017-01-18] MEDS: MIRAPEX PO SCH (21:33)
[2017-01-18] MEDS ORDERED: NON-FORMULARY (Fluticasone/Salmeterol [Advair Diskus 250-50 Mcg] 1 PUFF) IH SCH (22:00)
[2017-01-18] MEDS ORDERED: NON-FORMULARY (Folic Acid 1 MG) PO SCH (22:00)
[2017-01-19] MEDS ORDERED: PROVENTIL IH PRN
[2017-01-19] MEDS: NEURONTIN PO SCH ×4 (01:20→21:11)
[2017-01-19] MEDS: BENADRYL IV PRN ×4 (02:04→21:10)
[2017-01-19] MEDS: HEPARIN/ 0.45% NACL-25,000 UNIT/500 ML 25,000 UNIT/500 ML BAG IV SCH ×2 (02:04→19:23)
[2017-01-19] MEDS: MORPHINE IV PRN ×2 (05:53→11:52)
[2017-01-19 05:56] LABS: INR 1.15 (0.87-1.13)
[2017-01-19] MEDS: PULMICORT IH SCH ×2 (07:34→20:12)
[2017-01-19] MEDS: BROVANA NEBU IH SCH ×2 (07:34→20:12)
--- NOTE | 2017-01-19 07:38 | Progress Note ---
Assessment and Plan Assessment: * End stage renal disease on dialysis * Acute hypoxic respiratory failure * Bilateral PE * Subtherapeutic INR * Malfunctioning dialysis access/HERO graft * Anemia secondary to ESRD * Secondary hyperparathyroidism Plan: * Continue HD MWF * UF as tolerated * Anticoagulation per primary team * Vascular surgery recommendations reviewed * Renal diet * Epogen with dialysis * Dose medications for renal function Subjective Date of service: 01/19/17 Interval history: Patient reports occasional SOB yesterday. None today. Objective - Vital Signs Vital signs: Vital Signs - 12hr 01/18/17 01/18/17 01/18/17 20:00 20:14 20:32 Temperature 97.7 F Pulse Rate [ 81 86 Bilateral Throughout] Pulse Rate [ Left Radial] Pulse Rate [ 80 Right Dorsalis Pedis] Pulse Rate [ Right Radial] Respiratory 20 Rate Respiratory 14 14 Rate [Bilateral Throughout] Blood Pressure 131/42 [Right Calf] O2 Sat by Pulse 98 Oximetry 01/18/17 01/19/17 01/19/17 22:28 00:00 07:00 Temperature 97.5 F L 97.4 F L Pulse Rate [ Bilateral Throughout] Pulse Rate [ 81 Left Radial] Pulse Rate [ Right Dorsalis Pedis] Pulse Rate [ 84 Right Radial] Respiratory 20 20 Rate Respiratory Rate [Bilateral Throughout] Blood Pressure 125/53 115/57 [Right Calf] O2 Sat by Pulse 97 98 98 Oximetry - General Appearance General appearance: well-developed, well-nourished, obese EENT: ATNC Respiratory: Present: Decreased Breath Sounds Cardiology: regular, S1S2 Gastrointestinal: no tenderness, no distended, obese Integumentary: no rash Neurologic: alert and oriented x3 Musculoskeletal: other (no edema) Psychiatric: mood/affect appropriate, cooperative - Lab 01/18/17 05:13 01/17/17 05:04 Most recent lab results Calcium 8.3 mg/dL (8.4-10.2) L 01/17/17 05:04
[2017-01-19] MEDS: LOPID PO SCH (09:00)
[2017-01-19] MEDS: PROAMATINE PO SCH (09:00)
[2017-01-19] MEDS: FOLVITE PO SCH ×2 (09:00→21:11)
[2017-01-19] MEDS: BENADRYL PO SCH ×2 (09:00→21:20)
[2017-01-19] MEDS: ROCALTROL PO SCH (09:01)
[2017-01-19] MEDS: PROTONIX PO SCH (09:01)
[2017-01-19] MEDS ORDERED: NACL 0.9 (PRIMING MACHINE ONLY DIALYSIS) MC ONE (11:41)
[2017-01-19] MEDS: PROCRIT IV PRN (11:48)
[2017-01-19] MEDS: HEPARIN IV PRN (11:51)
--- NOTE | 2017-01-19 12:56 | Progress Note ---
Assessment and Plan Assessment and plan: Patient is a 46-year-old man with a history of polycystic kidney disease status post bilateral nephrectomy with end-stage renal disease on hemodialysis, osteoarthritis, GERD, coagulation disorder, bilateral PE on anticoagulation and seizure disorder who presented with shortness of breath. Chest x-ray was unremarkable, VQ scan was normal, CT abdomen and pelvis without contrast showed no kidneys and was unremarkable for acute processes. Patient was found to have subtherapeutic INR hence admission by request of his double needle operator lockstitch oncologist, He also is having trouble with HD access and will be seen by Vascular. -Bilateral PE, acute on chronic: On IV heparin drip -End-stage renal disease on hemodialysis: Nephrology to follow -Anemia chronic disease -Malfunction of hemodialysis access: Await vascular surgery evaluation==>no surgery until 6 weeks, so re-start Warfarin. I gave of dose of 10mg coumadin last night. i will start on 5mg po daily. History Interval history: Patient seen and examined. Follow up on shortness of breath which has resolved. Overnight uneventful. No cp, sob, n/v or severe headaches. Imaging, old records, testing, labs, nursing notes reviewed. Plan discussed with patient. Hospitalist Physical - Physical exam Narrative exam: GEN: WDWN, obese BMI 40.7 NAD, AWAKE, ALERT, ORIENTATED 3 HEENT: NCAT, PERRL, EOMI, OP CLEAR NECK: SUPPLE, NO THYROMEGALY, NO JVD, NO LAD CVS: RRR, NORMAL S1S2 LUNGS/CHEST: CTAB, NORMAL CHEST EXPANSION B, GOOD AIR ENTRY B ABD: SOFT NTND, GBS, NO REBOUND OR GUARDING EXT/SKIN: NO SIGNIFICANT EDEMA OR RASH MSK: FROM X 4 EXTREMITIES NEURO: CN 2-12 GROSSLY INTACT, NO new FOCAL DEFICITS PSY: CALM - Constitutional Vitals: Temp Pulse Resp BP Pulse Ox 97.6 F 60 22 115/59 98 01/19/17 10:04 01/19/17 12:00 01/19/17 10:04 01/19/17 12:00 01/19/17 08:00 General appearance: Present: no acute distress Results - Labs CBC & Chem 7: 01/18/17 05:13 01/17/17 05:04 Labs: Laboratory Last Values WBC 6.3 K/mm3 (4.5-11.0) 01/17/17 05:04 RBC 3.21 M/mm3 (3.65-5.03) L 01/17/17 05:04 Hgb 10.8 gm/dl (11.8-15.2) L 01/18/17 05:13 Hct 32.7 % (35.5-45.6) L 01/18/17 05:13 MCV 99 fl (84-94) H 01/17/17 05:04 MCH 33 pg (28-32) H 01/17/17 05:04 MCHC 34 % (32-34) 01/17/17 05:04 RDW 16.6 % (13.2-15.2) H 01/17/17 05:04 Plt Count 339 K/mm3 (140-440) 01/18/17 05:13 Lymph % (Auto) 22.1 % (13.4-35.0) 01/17/17 05:04 [place] % (Auto) 8.1 % (0.0-7.3) H 01/17/17 05:04 Eos % (Auto) 6.0 % (0.0-4.3) H 01/17/17 05:04 Baso % (Auto) 1.0 % (0.0-1.8) 01/17/17 05:04 Lymph # 1.4 K/mm3 (1.2-5.4) 01/17/17 05:04 [place] # 0.5 K/mm3 (0.0-0.8) 01/17/17 05:04 Eos # 0.4 K/mm3 (0.0-0.4) 01/17/17 05:04 Baso # 0.1 K/mm3 (0.0-0.1) 01/17/17 05:04 Seg Neutrophils % 62.8 % (40.0-70.0) 01/17/17 05:04 Seg Neutrophils # 4.0 K/mm3 (1.8-7.7) 01/17/17 05:04 PT 14.6 Sec. (12.2-14.9) 01/19/17 05:06 INR 1.15 (0.87-1.13) H 01/19/17 05:06 APTT 36.0 Sec. (24.2-36.6) 01/16/17 01:27 D-Dimer 656.96 ng/mlDDU (0-234) H 01/15/17 19:44 Heparin Anti-Xa Level 0.39 U.I./ml (0.3-0.7) 01/18/17 21:00 Sodium 142 mmol/L (137-145) 01/17/17 05:04 Potassium 4.7 mmol/L (3.6-5.0) 01/17/17 05:04 Chloride 100.0 mmol/L (98-107) 01/17/17 05:04 Carbon Dioxide 24 mmol/L (22-30) 01/17/17 05:04 Anion Gap 23 mmol/L 01/17/17 05:04 BUN 55 mg/dL (9-20) H 01/17/17 05:04 Creatinine 8.4 mg/dL (0.8-1.5) H D 01/17/17 05:04 Estimated GFR 7 ml/min 01/17/17 05:04 BUN/Creatinine Ratio 6.54 % 01/17/17 05:04 Glucose 95 mg/dL (75-100) 01/17/17 05:04 Calcium 8.3 mg/dL (8.4-10.2) L 01/17/17 05:04 Troponin T 0.092 ng/mL (0.00-0.029) H 01/15/17 19:44
[2017-01-19] MEDS: COUMADIN PO SCH (16:46)
[2017-01-19] MEDS: MIRAPEX PO SCH (21:11)
[2017-01-19] MEDS: DESYREL PO SCH (21:11)
[2017-01-19] MEDS: FLEXERIL PO SCH (21:11)
[2017-01-20] MEDS: BENADRYL IV PRN ×4 (03:01→21:25)
[2017-01-20 03:17] LABS: Hemoglobin 11.3 gm/dl (11.8-15.2)
[2017-01-20 03:40] LABS: INR 1.16 (0.87-1.13)
[2017-01-20] MEDS: BROVANA NEBU IH SCH ×2 (08:18→20:03)
[2017-01-20] MEDS: PULMICORT IH SCH ×2 (08:19→20:03)
[2017-01-20] MEDS: MORPHINE IV PRN ×3 (09:00→21:25)
[2017-01-20] MEDS: HEPARIN/ 0.45% NACL-25,000 UNIT/500 ML 25,000 UNIT/500 ML BAG IV SCH ×2 (09:00→23:14)
[2017-01-20] MEDS: BENADRYL PO SCH ×2 (09:01→21:25)
[2017-01-20] MEDS: PROTONIX PO SCH (09:47)
[2017-01-20] MEDS: NEURONTIN PO SCH ×3 (09:47→20:47)
[2017-01-20] MEDS: PROAMATINE PO SCH (09:47)
[2017-01-20] MEDS: ROCALTROL PO SCH (09:47)
[2017-01-20] MEDS: FOLVITE PO SCH ×2 (09:49→21:24)
--- NOTE | 2017-01-20 11:47 | Progress Note ---
Assessment and Plan Assessment and plan: Patient is a 46-year-old man with a history of polycystic kidney disease status post bilateral nephrectomy with end-stage renal disease on hemodialysis, osteoarthritis, GERD, coagulation disorder, bilateral PE on anticoagulation and seizure disorder who presented with shortness of breath. Chest x-ray was unremarkable, VQ scan was normal, CT abdomen and pelvis without contrast showed no kidneys and was unremarkable for acute processes. 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 -Bilateral PE, acute on chronic: On IV heparin drip -End-stage renal disease on hemodialysis: Nephrology to follow -Anemia chronic disease -Malfunction of hemodialysis access: Await vascular surgery evaluation==>no surgery until 6 weeks, so re-start Warfarin. I gave of dose of 10mg coumadin x 1 on 01/17/17. i will start on 5mg po daily. Await INR to be therapeutic\ Continue iv heparin drip with close monitoring. History Interval history: Patient seen and examined. Follow up on shortness of breath which has resolved. Overnight uneventful. No cp, sob, n/v or severe headaches. Imaging, old records, testing, labs, nursing notes reviewed. Plan discussed with patient. Hospitalist Physical - Physical exam Narrative exam: GEN: WDWN, obese BMI 40.7 NAD, AWAKE, ALERT, ORIENTATED 3 HEENT: NCAT, PERRL, EOMI, OP CLEAR NECK: SUPPLE, NO THYROMEGALY, NO JVD, NO LAD CVS: RRR, NORMAL S1S2 LUNGS/CHEST: CTAB, NORMAL CHEST EXPANSION B, GOOD AIR ENTRY B ABD: SOFT NTND, GBS, NO REBOUND OR GUARDING EXT/SKIN: NO SIGNIFICANT EDEMA OR RASH MSK: FROM X 4 EXTREMITIES NEURO: CN 2-12 GROSSLY INTACT, NO new FOCAL DEFICITS PSY: CALM - Constitutional Vitals: Temp Pulse Resp BP Pulse Ox 97.7 F 79 18 168/70 100 01/20/17 09:46 01/20/17 10:01 01/20/17 09:46 01/20/17 09:46 01/20/17 09:46 General appearance: Present: no acute distress Results - Labs CBC & Chem 7: 01/20/17 02:54 01/17/17 05:04 Labs: Laboratory Last Values WBC 6.3 K/mm3 (4.5-11.0) 01/17/17 05:04 RBC 3.21 M/mm3 (3.65-5.03) L 01/17/17 05:04 Hgb 11.3 gm/dl (11.8-15.2) L 01/20/17 02:54 Hct 32.0 % (35.5-45.6) L 01/20/17 02:54 MCV 99 fl (84-94) H 01/17/17 05:04 MCH 33 pg (28-32) H 01/17/17 05:04 MCHC 34 % (32-34) 01/17/17 05:04 RDW 16.6 % (13.2-15.2) H 01/17/17 05:04 Plt Count 349 K/mm3 (140-440) 01/20/17 02:54 Lymph % (Auto) 22.1 % (13.4-35.0) 01/17/17 05:04 [place] % (Auto) 8.1 % (0.0-7.3) H 01/17/17 05:04 Eos % (Auto) 6.0 % (0.0-4.3) H 01/17/17 05:04 Baso % (Auto) 1.0 % (0.0-1.8) 01/17/17 05:04 Lymph # 1.4 K/mm3 (1.2-5.4) 01/17/17 05:04 [place] # 0.5 K/mm3 (0.0-0.8) 01/17/17 05:04 Eos # 0.4 K/mm3 (0.0-0.4) 01/17/17 05:04 Baso # 0.1 K/mm3 (0.0-0.1) 01/17/17 05:04 Seg Neutrophils % 62.8 % (40.0-70.0) 01/17/17 05:04 Seg Neutrophils # 4.0 K/mm3 (1.8-7.7) 01/17/17 05:04 PT 14.7 Sec. (12.2-14.9) 01/20/17 02:54 INR 1.16 (0.87-1.13) H 01/20/17 02:54 APTT 36.0 Sec. (24.2-36.6) 01/16/17 01:27 D-Dimer 656.96 ng/mlDDU (0-234) H 01/15/17 19:44 Heparin Anti-Xa Level 0.33 U.I./ml (0.3-0.7) 01/20/17 02:54 Sodium 142 mmol/L (137-145) 01/17/17 05:04 Potassium 4.7 mmol/L (3.6-5.0) 01/17/17 05:04 Chloride 100.0 mmol/L (98-107) 01/17/17 05:04 Carbon Dioxide 24 mmol/L (22-30) 01/17/17 05:04 Anion Gap 23 mmol/L 01/17/17 05:04 BUN 55 mg/dL (9-20) H 01/17/17 05:04 Creatinine 8.4 mg/dL (0.8-1.5) H D 01/17/17 05:04 Estimated GFR 7 ml/min 01/17/17 05:04 BUN/Creatinine Ratio 6.54 % 01/17/17 05:04 Glucose 95 mg/dL (75-100) 01/17/17 05:04 Calcium 8.3 mg/dL (8.4-10.2) L 01/17/17 05:04 Troponin T 0.092 ng/mL (0.00-0.029) H 01/15/17 19:44
--- NOTE | 2017-01-20 12:29 | Progress Note ---
Assessment and Plan Assessment: * End stage renal disease on dialysis * Acute hypoxic respiratory failure * Bilateral PE * Subtherapeutic INR * Malfunctioning dialysis access/HERO graft * Anemia secondary to ESRD * Secondary hyperparathyroidism Plan: * Continue HD MWF * UF as tolerated * Anticoagulation per primary team * Vascular surgery recommendations reviewed * Renal diet * Epogen with dialysis * Dose medications for renal function Subjective Date of service: 01/20/17 Principal diagnosis: esrd Interval history: resting well in bed today Objective - Exam Narrative Exam: General appearance: well-developed, well-nourished, obese EENT: ATNC Respiratory: Present: Decreased Breath Sounds Cardiology: regular, S1S2 Gastrointestinal: no tenderness, no distended, obese Integumentary: no rash Neurologic: alert and oriented x3 Musculoskeletal: other (no edema) Psychiatric: mood/affect appropriate, cooperative - Vital Signs Vital signs: Vital Signs - 12hr 01/20/17 01/20/17 01/20/17 01:35 03:00 06:00 Temperature 97.8 F 97.9 F Pulse Rate Pulse Rate [ Bilateral Throughout] Pulse Rate [ 82 81 Left Radial] Pulse Rate [ Right Radial] Respiratory 20 20 Rate Respiratory Rate [Bilateral Throughout] Blood Pressure 107/58 99/51 119/58 [Right Calf] O2 Sat by Pulse 97 100 Oximetry 01/20/17 01/20/17 01/20/17 08:19 08:30 09:00 Temperature Pulse Rate Pulse Rate [ 75 78 Bilateral Throughout] Pulse Rate [ Left Radial] Pulse Rate [ Right Radial] Respiratory 20 Rate Respiratory 18 20 Rate [Bilateral Throughout] Blood Pressure [Right Calf] O2 Sat by Pulse Oximetry 01/20/17 01/20/17 01/20/17 09:30 09:46 10:01 Temperature 97.7 F Pulse Rate 79 Pulse Rate [ Bilateral Throughout] Pulse Rate [ Left Radial] Pulse Rate [ 86 Right Radial] Respiratory 18 18 Rate Respiratory Rate [Bilateral Throughout] Blood Pressure 168/70 [Right Calf] O2 Sat by Pulse 100 Oximetry - Lab 01/20/17 02:54 01/17/17 05:04 Most recent lab results Calcium 8.3 mg/dL (8.4-10.2) L 01/17/17 05:04
[2017-01-20] MEDS: COUMADIN PO SCH (16:42)
[2017-01-20] MEDS: FLEXERIL PO SCH (21:24)
[2017-01-20] MEDS: MIRAPEX PO SCH (21:24)
[2017-01-20] MEDS: DESYREL PO SCH (21:24)
[2017-01-21] MEDS: BENADRYL IV PRN ×4 (04:00→21:42)
[2017-01-21] MEDS: MORPHINE IV PRN ×4 (04:00→23:01)
[2017-01-21 05:54] LABS: INR 1.25 (0.87-1.13)
[2017-01-21] MEDS: BROVANA NEBU IH SCH ×2 (08:20→20:09)
[2017-01-21] MEDS: PULMICORT IH SCH ×2 (08:20→20:09)
[2017-01-21] MEDS: NEURONTIN PO SCH ×3 (08:47→21:39)
[2017-01-21] MEDS: PROAMATINE PO SCH (09:02)
[2017-01-21] MEDS: FOLVITE PO SCH ×2 (09:02→21:37)
[2017-01-21] MEDS: ROCALTROL PO SCH (09:02)
[2017-01-21] MEDS: PROTONIX PO SCH (09:03)
--- NOTE | 2017-01-21 10:19 | Progress Note ---
Assessment and Plan Assessment and plan: Patient is a 46-year-old man with a history of polycystic kidney disease status post bilateral nephrectomy with end-stage renal disease on hemodialysis, osteoarthritis, GERD, coagulation disorder, bilateral PE on anticoagulation and seizure disorder who presented with shortness of breath. Chest x-ray was unremarkable, VQ scan was normal, CT abdomen and pelvis without contrast showed no kidneys and was unremarkable for acute processes. 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 -Bilateral PE, acute on chronic: On IV heparin drip -End-stage renal disease on hemodialysis: Nephrology to follow -Anemia chronic disease -Malfunction of hemodialysis access: Await vascular surgery evaluation==>no surgery until 6 weeks, so re-start Warfarin. I gave of dose of 10mg coumadin x 1 on 01/17/17. i will start on 5mg po daily. Await INR to be therapeutic Continue iv heparin drip with close monitoring. History Interval history: Patient seen and examined. Follow up on shortness of breath which has resolved. Overnight uneventful. No cp, sob, n/v or severe headaches. Imaging, old records, testing, labs, nursing notes reviewed. Plan discussed with patient. Hospitalist Physical - Physical exam Narrative exam: GEN: WDWN, obese BMI 40.7 NAD, AWAKE, ALERT, ORIENTATED 3 HEENT: NCAT, PERRL, EOMI, OP CLEAR NECK: SUPPLE, NO THYROMEGALY, NO JVD, NO LAD CVS: RRR, NORMAL S1S2 LUNGS/CHEST: CTAB, NORMAL CHEST EXPANSION B, GOOD AIR ENTRY B ABD: SOFT NTND, GBS, NO REBOUND OR GUARDING EXT/SKIN: NO SIGNIFICANT EDEMA OR RASH MSK: FROM X 4 EXTREMITIES NEURO: CN 2-12 GROSSLY INTACT, NO new FOCAL DEFICITS PSY: CALM - Constitutional Vitals: Temp Pulse Resp BP Pulse Ox 97.5 F L 69 21 146/62 97 01/21/17 08:00 01/21/17 08:00 01/21/17 06:00 01/21/17 08:00 01/21/17 08:00 General appearance: Present: no acute distress Results - Labs CBC & Chem 7: 01/20/17 02:54 01/17/17 05:04 Labs: Laboratory Last Values WBC 6.3 K/mm3 (4.5-11.0) 01/17/17 05:04 RBC 3.21 M/mm3 (3.65-5.03) L 01/17/17 05:04 Hgb 11.3 gm/dl (11.8-15.2) L 01/20/17 02:54 Hct 32.0 % (35.5-45.6) L 01/20/17 02:54 MCV 99 fl (84-94) H 01/17/17 05:04 MCH 33 pg (28-32) H 01/17/17 05:04 MCHC 34 % (32-34) 01/17/17 05:04 RDW 16.6 % (13.2-15.2) H 01/17/17 05:04 Plt Count 349 K/mm3 (140-440) 01/20/17 02:54 Lymph % (Auto) 22.1 % (13.4-35.0) 01/17/17 05:04 [place] % (Auto) 8.1 % (0.0-7.3) H 01/17/17 05:04 Eos % (Auto) 6.0 % (0.0-4.3) H 01/17/17 05:04 Baso % (Auto) 1.0 % (0.0-1.8) 01/17/17 05:04 Lymph # 1.4 K/mm3 (1.2-5.4) 01/17/17 05:04 [place] # 0.5 K/mm3 (0.0-0.8) 01/17/17 05:04 Eos # 0.4 K/mm3 (0.0-0.4) 01/17/17 05:04 Baso # 0.1 K/mm3 (0.0-0.1) 01/17/17 05:04 Seg Neutrophils % 62.8 % (40.0-70.0) 01/17/17 05:04 Seg Neutrophils # 4.0 K/mm3 (1.8-7.7) 01/17/17 05:04 PT 15.6 Sec. (12.2-14.9) H 01/21/17 05:10 INR 1.25 (0.87-1.13) H 01/21/17 05:10 APTT 36.0 Sec. (24.2-36.6) 01/16/17 01:27 D-Dimer 656.96 ng/mlDDU (0-234) H 01/15/17 19:44 Heparin Anti-Xa Level 0.41 U.I./ml (0.3-0.7) 01/21/17 05:10 Sodium 142 mmol/L (137-145) 01/17/17 05:04 Potassium 4.7 mmol/L (3.6-5.0) 01/17/17 05:04 Chloride 100.0 mmol/L (98-107) 01/17/17 05:04 Carbon Dioxide 24 mmol/L (22-30) 01/17/17 05:04 Anion Gap 23 mmol/L 01/17/17 05:04 BUN 55 mg/dL (9-20) H 01/17/17 05:04 Creatinine 8.4 mg/dL (0.8-1.5) H D 01/17/17 05:04 Estimated GFR 7 ml/min 01/17/17 05:04 BUN/Creatinine Ratio 6.54 % 01/17/17 05:04 Glucose 95 mg/dL (75-100) 01/17/17 05:04 Calcium 8.3 mg/dL (8.4-10.2) L 01/17/17 05:04 Troponin T 0.092 ng/mL (0.00-0.029) H 01/15/17 19:44
--- NOTE | 2017-01-21 11:36 | Progress Note ---
Assessment and Plan Assessment: * End stage renal disease on dialysis * Acute hypoxic respiratory failure * Bilateral PE * Subtherapeutic INR * Malfunctioning dialysis access/HERO graft * Anemia secondary to ESRD * Secondary hyperparathyroidism Plan: * Continue HD MWF * UF as tolerated * Anticoagulation per primary team * Vascular surgery recommendations reviewed * Renal diet * Epogen with dialysis * Dose medications for renal function Subjective Date of service: 01/21/17 Principal diagnosis: esrd Interval history: resting well in bed today Objective - Exam Narrative Exam: General appearance: well-developed, well-nourished, obese EENT: ATNC Respiratory: Present: Decreased Breath Sounds Cardiology: regular, S1S2 Gastrointestinal: no tenderness, no distended, obese Integumentary: no rash Neurologic: alert and oriented x3 Musculoskeletal: other (no edema) Psychiatric: mood/affect appropriate, cooperative - Vital Signs Vital signs: Vital Signs - 12hr 01/21/17 01/21/17 01/21/17 01:28 06:00 08:00 Temperature 97.6 F 98 F 97.5 F L Pulse Rate [ 84 78 69 Left Radial] Respiratory 20 21 Rate Blood Pressure 111/56 119/70 146/62 [Right Calf] O2 Sat by Pulse 98 100 97 Oximetry - Lab 01/20/17 02:54 01/17/17 05:04 Most recent lab results Calcium 8.3 mg/dL (8.4-10.2) L 01/17/17 05:04
[2017-01-21] MEDS: BENADRYL PO SCH ×2 (12:47→22:51)
[2017-01-21] MEDS: HEPARIN/ 0.45% NACL-25,000 UNIT/500 ML 25,000 UNIT/500 ML BAG IV SCH (12:48)
[2017-01-21] MEDS: COUMADIN PO SCH (16:03)
[2017-01-21] MEDS: FLEXERIL PO SCH (21:37)
[2017-01-21] MEDS: DESYREL PO SCH (21:38)
[2017-01-21] MEDS: MIRAPEX PO SCH (21:38)
[2017-01-22 05:54] LABS: Hematocrit 32.4 % (35.5-45.6); Hemoglobin 10.7 gm/dl (11.8-15.2)
[2017-01-22 06:04] LABS: INR 1.44 (0.87-1.13)
[2017-01-22] MEDS: MORPHINE IV PRN ×3 (06:09→22:25)
[2017-01-22] MEDS: BENADRYL IV PRN ×5 (06:11→22:34)
[2017-01-22] MEDS: PULMICORT IH SCH ×2 (07:36→20:08)
[2017-01-22] MEDS: BROVANA NEBU IH SCH ×2 (07:36→20:08)
--- NOTE | 2017-01-22 09:33 | Progress Note ---
Assessment and Plan Assessment: * End stage renal disease on dialysis * Acute hypoxic respiratory failure * Bilateral PE * Subtherapeutic INR * Malfunctioning dialysis access/HERO graft * Anemia secondary to ESRD * Secondary hyperparathyroidism * Chronic hypotension Plan: * Continue HD MWF * UF as tolerated. Reassess tomorrow for need for additional dialysis * Anticoagulation per primary team * Vascular surgery recommendations reviewed * Renal diet * Epogen with dialysis * Dose medications for renal function * Patient requires Mildrodin and prior to dialysis to maintain blood pressure Subjective Date of service: 01/22/17 Principal diagnosis: esrd Interval history: Patient is comfortable this morning. Shortness of breath has improved significantly. No nausea or vomiting. Requesting additional fluid to be removed with dialysis Objective - Vital Signs Vital signs: Vital Signs - 12hr 01/21/17 01/22/17 01/22/17 22:00 00:00 07:00 Temperature 97.6 F Pulse Rate 74 73 Pulse Rate [ 74 Apical] Pulse Rate [ Bilateral Throughout] Pulse Rate [ 77 Left Radial] Pulse Rate [ Right Radial] Respiratory 20 Rate Respiratory 18 Rate [Bilateral Leg] Respiratory Rate [Bilateral Throughout] Blood Pressure 178/111 [Right Calf] O2 Sat by Pulse 99 Oximetry 01/22/17 01/22/17 01/22/17 07:13 07:37 07:42 Temperature 97.4 F L Pulse Rate Pulse Rate [ Apical] Pulse Rate [ 76 Bilateral Throughout] Pulse Rate [ 80 Left Radial] Pulse Rate [ Right Radial] Respiratory 19 Rate Respiratory Rate [Bilateral Leg] Respiratory 18 Rate [Bilateral Throughout] Blood Pressure 152/65 [Right Calf] O2 Sat by Pulse 99 97 Oximetry 01/22/17 01/22/17 07:59 08:15 Temperature 97.5 F L Pulse Rate Pulse Rate [ Apical] Pulse Rate [ 75 Bilateral Throughout] Pulse Rate [ Left Radial] Pulse Rate [ 82 Right Radial] Respiratory 20 Rate Respiratory Rate [Bilateral Leg] Respiratory 18 Rate [Bilateral Throughout] Blood Pressure 121/56 [Right Calf] O2 Sat by Pulse 96 Oximetry - General Appearance General appearance: well-developed, well-nourished, appears stated age, obese EENT: PERRL, mucous membranes moist Neck: no JVD, no thyromegaly, no carotid bruit, supple, other (right IJ PermCath in place) Respiratory: Present: Clear to Ascultation Cardiology: regular, normal heart rate, S1S2, no murmurs Gastrointestinal: normal, normoactive bowel sounds Integumentary: other (no edema) - Lab 01/22/17 04:56 01/17/17 05:04 Most recent lab results Calcium 8.3 mg/dL (8.4-10.2) L 01/17/17 05:04
[2017-01-22] MEDS ORDERED: NACL 0.9 (PRIMING MACHINE ONLY DIALYSIS) MC ONE (11:25)
--- NOTE | 2017-01-22 12:32 | Progress Note ---
Assessment and Plan Assessment and plan: Patient is a 46-year-old man with a history of polycystic kidney disease status post bilateral nephrectomy with end-stage renal disease on hemodialysis, osteoarthritis, GERD, coagulation disorder, bilateral PE on anticoagulation and seizure disorder who presented with shortness of breath. Chest x-ray was unremarkable, VQ scan was normal, CT abdomen and pelvis without contrast showed no kidneys and was unremarkable for acute processes. 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 -Bilateral PE, acute on chronic: On IV heparin drip -End-stage renal disease on hemodialysis: Nephrology to follow -Anemia chronic disease -Malfunction of hemodialysis access: Await vascular surgery evaluation==>no surgery until 6 weeks, so re-start Warfarin. I gave of dose of 10mg coumadin x 1 on 01/17/17. i will start on 5mg po daily. Await INR to be therapeutic Continue iv heparin drip with close monitoring. He was told by Tre[facility] that bilateral PEs are getting smaller as compared to the CTA chest done recently at [facility] in [place], [place] Left arm HERO graft needs revision after fully anticoagulation per Vascular team I Facetime with his per patient request today. History Interval history: Patient seen and examined. Follow up on shortness of breath which has resolved. Overnight uneventful. No cp, sob, n/v or severe headaches. Imaging, old records, testing, labs, nursing notes reviewed. Plan discussed with patient. Hospitalist Physical - Physical exam Narrative exam: GEN: WDWN, obese BMI 40.7 NAD, AWAKE, ALERT, ORIENTATED 3 HEENT: NCAT, PERRL, EOMI, OP CLEAR NECK: SUPPLE, NO THYROMEGALY, NO JVD, NO LAD CVS: RRR, NORMAL S1S2 LUNGS/CHEST: CTAB, NORMAL CHEST EXPANSION B, GOOD AIR ENTRY B ABD: SOFT NTND, GBS, NO REBOUND OR GUARDING EXT/SKIN: NO SIGNIFICANT EDEMA OR RASH MSK: FROM X 4 EXTREMITIES NEURO: CN 2-12 GROSSLY INTACT, NO new FOCAL DEFICITS PSY: CALM - Constitutional Vitals: Temp Pulse Resp BP Pulse Ox 97.0 F L 98 H 18 136/50 96 01/22/17 10:50 01/22/17 12:05 01/22/17 10:50 01/22/17 12:05 01/22/17 08:15 General appearance: Present: no acute distress Results - Labs CBC & Chem 7: 01/22/17 04:56 01/17/17 05:04 Labs: Laboratory Last Values WBC 6.3 K/mm3 (4.5-11.0) 01/17/17 05:04 RBC 3.21 M/mm3 (3.65-5.03) L 01/17/17 05:04 Hgb 10.7 gm/dl (11.8-15.2) L 01/22/17 04:56 Hct 32.4 % (35.5-45.6) L 01/22/17 04:56 MCV 99 fl (84-94) H 01/17/17 05:04 MCH 33 pg (28-32) H 01/17/17 05:04 MCHC 34 % (32-34) 01/17/17 05:04 RDW 16.6 % (13.2-15.2) H 01/17/17 05:04 Plt Count 413 K/mm3 (140-440) 01/22/17 04:56 Lymph % (Auto) 22.1 % (13.4-35.0) 01/17/17 05:04 [place] % (Auto) 8.1 % (0.0-7.3) H 01/17/17 05:04 Eos % (Auto) 6.0 % (0.0-4.3) H 01/17/17 05:04 Baso % (Auto) 1.0 % (0.0-1.8) 01/17/17 05:04 Lymph # 1.4 K/mm3 (1.2-5.4) 01/17/17 05:04 [place] # 0.5 K/mm3 (0.0-0.8) 01/17/17 05:04 Eos # 0.4 K/mm3 (0.0-0.4) 01/17/17 05:04 Baso # 0.1 K/mm3 (0.0-0.1) 01/17/17 05:04 Seg Neutrophils % 62.8 % (40.0-70.0) 01/17/17 05:04 Seg Neutrophils # 4.0 K/mm3 (1.8-7.7) 01/17/17 05:04 PT 17.5 Sec. (12.2-14.9) H 01/22/17 04:56 INR 1.44 (0.87-1.13) H 01/22/17 04:56 APTT 36.0 Sec. (24.2-36.6) 01/16/17 01:27 D-Dimer 656.96 ng/mlDDU (0-234) H 01/15/17 19:44 Heparin Anti-Xa Level < 0.10 U.I./ml (0.3-0.7) L 01/22/17 04:56 Sodium 142 mmol/L (137-145) 01/17/17 05:04 Potassium 4.7 mmol/L (3.6-5.0) 01/17/17 05:04 Chloride 100.0 mmol/L (98-107) 01/17/17 05:04 Carbon Dioxide 24 mmol/L (22-30) 01/17/17 05:04 Anion Gap 23 mmol/L 01/17/17 05:04 BUN 55 mg/dL (9-20) H 01/17/17 05:04 Creatinine 8.4 mg/dL (0.8-1.5) H D 01/17/17 05:04 Estimated GFR 7 ml/min 01/17/17 05:04 BUN/Creatinine Ratio 6.54 % 01/17/17 05:04 Glucose 95 mg/dL (75-100) 01/17/17 05:04 Calcium 8.3 mg/dL (8.4-10.2) L 01/17/17 05:04 Troponin T 0.092 ng/mL (0.00-0.029) H 01/15/17 19:44
[2017-01-22] MEDS: HEPARIN IV PRN (12:37)
[2017-01-22] MEDS: PROCRIT IV PRN (12:40)
[2017-01-22] MEDS: PROTONIX PO SCH (17:05)
[2017-01-22] MEDS: ROCALTROL PO SCH (18:20)
[2017-01-22] MEDS: COUMADIN PO SCH (18:21)
[2017-01-22] MEDS: PROAMATINE PO SCH (18:21)
[2017-01-22] MEDS: FOLVITE PO SCH ×2 (18:21→22:22)
[2017-01-22] MEDS: NEURONTIN PO SCH ×3 (18:21→22:24)
[2017-01-22] MEDS: BENADRYL PO SCH ×2 (19:06→22:27)
[2017-01-22] MEDS: FLEXERIL PO SCH (22:22)
[2017-01-22] MEDS: DESYREL PO SCH (22:22)
[2017-01-22] MEDS: MIRAPEX PO SCH (22:22)
[2017-01-23] MEDS: BENADRYL IV PRN ×2 (05:32→20:40)
[2017-01-23] MEDS: HEPARIN/ 0.45% NACL-25,000 UNIT/500 ML 25,000 UNIT/500 ML BAG IV SCH ×3 (05:34→18:28)
[2017-01-23 06:11] LABS: Eosinophils % (Auto) 3.9 % (0.0-4.3); Hematocrit 30.6 % (35.5-45.6); Hemoglobin 10.4 gm/dl (11.8-15.2); Mean Corpuscular HGB Conc 34 % (32-34); Mean Corpuscular Hemoglobin 33 pg (28-32); Mean Corpuscular Volume 98 fl (84-94); Platelet Count 360 K/mm3 (140-440); Red Blood Count 3.12 M/mm3 (3.65-5.03); Red Cell Distribution Width 16.5 % (13.2-15.2); White Blood Count 7.5 K/mm3 (4.5-11.0)
[2017-01-23 06:23] LABS: INR 1.68 (0.87-1.13)
[2017-01-23 06:38] LABS: Albumin 3.4 g/dL (3.9-5); Albumin/Globulin Ratio 1.5 %; BUN/Creatinine Ratio 5.07; Bilirubin,Total 0.2 mg/dL (0.1-1.2); Calcium 8.9 mg/dL (8.4-10.2); Chloride 94.8 mmol/L (98-107); Potassium 4.8 mmol/L (3.6-5.0); Total Protein 5.7 g/dL (6.3-8.2)
--- NOTE | 2017-01-23 08:36 | Progress Note ---
Assessment and Plan Assessment: * End stage renal disease on dialysis * Acute hypoxic respiratory failure * Bilateral PE * Subtherapeutic INR * Malfunctioning dialysis access/HERO graft * Anemia secondary to ESRD * Secondary hyperparathyroidism * Chronic hypotension Plan: * Continue HD MWF * Shall try additional dialysis today for ultrafiltration only * Anticoagulation per primary team * Vascular surgery recommendations reviewed * Renal diet * Epogen with dialysis * Dose medications for renal function * Patient requires Mildrodin prior to dialysis to maintain blood pressure Subjective Date of service: 01/23/17 Principal diagnosis: esrd Interval history: Patient states that he still feels somewhat bloated. His shortness of breath is improving. No nausea or vomiting. Requesting additional dialysis for fluid removal Objective - Vital Signs Vital signs: Vital Signs - 12hr 01/22/17 01/22/17 01/23/17 21:06 22:25 00:47 Temperature 98.0 F 98.1 F Pulse Rate Pulse Rate [ 101 H Right Radial] Pulse Rate [ 86 Right] Respiratory 20 20 20 Rate Respiratory Rate [Bilateral Leg] Blood Pressure 126/57 116/58 [Right Calf] O2 Sat by Pulse 96 95 Oximetry 01/23/17 01/23/17 01/23/17 02:29 04:45 08:06 Temperature 97.9 F Pulse Rate 101 H 72 Pulse Rate [ Right Radial] Pulse Rate [ 79 Right] Respiratory 20 Rate Respiratory 18 Rate [Bilateral Leg] Blood Pressure 93/47 [Right Calf] O2 Sat by Pulse 97 Oximetry - General Appearance General appearance: well-developed, well-nourished, appears stated age EENT: PERRL, mucous membranes moist Neck: no JVD, no thyromegaly, no carotid bruit, supple Respiratory: Present: Clear to Ascultation, Other (right IJ PermCath in place) Cardiology: regular, normal heart rate Gastrointestinal: normal, normoactive bowel sounds Integumentary: no rash, other (trace edema) - Lab 01/23/17 05:18 01/23/17 05:18 Most recent lab results Calcium 8.9 mg/dL (8.4-10.2) 01/23/17 05:18
[2017-01-23] MEDS: NEURONTIN PO SCH ×3 (08:39→20:07)
[2017-01-23] MEDS: PULMICORT IH SCH ×2 (08:41→19:40)
[2017-01-23] MEDS: BROVANA NEBU IH SCH ×2 (08:41→19:40)
[2017-01-23] MEDS ORDERED: NACL 0.9% 100 ML IV PRN (09:00)
[2017-01-23] MEDS ORDERED: NACL 0.9 (PRIMING MACHINE ONLY DIALYSIS) MC ONE (12:31)
[2017-01-23] MEDS: HEPARIN IV PRN (13:23)
[2017-01-23] MEDS: PROCRIT IV PRN (13:39)
[2017-01-23] MEDS: BENADRYL PO SCH (14:33)
[2017-01-23] MEDS: PROTONIX PO SCH (14:33)
[2017-01-23] MEDS: FOLVITE PO SCH ×2 (14:33→22:42)
[2017-01-23] MEDS: ROCALTROL PO SCH (14:34)
[2017-01-23] MEDS: PROAMATINE PO SCH (14:34)
--- NOTE | 2017-01-23 15:12 | Progress Note ---
Assessment and Plan Assessment and plan: Patient is a 46-year-old man with a history of polycystic kidney disease status post bilateral nephrectomy with end-stage renal disease on hemodialysis, osteoarthritis, GERD, coagulation disorder, bilateral PE on anticoagulation and seizure disorder who presented with shortness of breath. Chest x-ray was unremarkable, VQ scan was normal, CT abdomen and pelvis without contrast showed no kidneys and was unremarkable for acute processes. Patient was found to have subtherapeutic INR hence admission by request of his repairer recreational vehicle/oncologist, He also is having trouble with HD access and was seen by Vascular. -Bilateral PE, acute on chronic: On IV heparin drip, Coumadin restarted INR 1.68 today."He was told by Trevon Dobbins Vascular PA that bilateral PEs are getting smaller as compared to the CTA chest done recently at [facility] in [place], [place]" Patient reports that it was discontinued on due to supratherapeutic INR and unfortunately was not restarted. He notes that he's had a bleed in the GI in the past but not this time. I did discuss close monitoring for this and if reoccurrence will need IVC filter. Patient verbalizes understanding -End-stage renal disease on hemodialysis: Nephrology to follow -Anemia chronic disease -Malfunction of hemodialysis access: Await vascular surgery evaluation==>no surgery until 6 weeks, left arm hero graft needs revision once fully anticoagulated so re-start Warfarin. y. History Interval history: Patients and examined today in dialysis no acute distress. He reports a remote history of bleed, he states it was also diagnosed at [facility]. As not recollect all details but denies any bleed and bright red blood per rectum or melanotic stool at this time. No other adverse event reported by nursing staff Hospitalist Physical - Physical exam Narrative exam: VITAL SIGNS: Reviewed. GENERAL: The patient appeared well nourished and normally developed. Vital signs as documented. HEAD: No signs of head trauma. EYES: Pupils are equal. Extraocular motions intact. EARS: Hearing grossly intact. MOUTH: Oropharynx is normal. NECK: No adenopathy, no JVD. CHEST: Chest with clear breath sounds bilaterally. No wheezes, rales, or rhonchi. CARDIAC: Regular rate and rhythm. S1 and S2, without murmurs, gallops, or rubs. VASCULAR: No Edema. Peripheral pulses normal and equal in all extremities. ABDOMEN: Soft, without detectable tenderness. No sign of distention. No rebound or guarding, and no masses palpated. Bowel Sounds normal. MUSCULOSKELETAL: Good range of motion of all major joints. Extremities without clubbing, cyanosis or edema. NEUROLOGIC EXAM: Alert and oriented x 3. No focal sensory or strength deficits. Speech normal. Follows commands. PSYCHIATRIC: Mood normal. SKIN: A-V fistula with positive thrill - Constitutional Vitals: Temp Pulse Resp BP Pulse Ox 97.2 F L 74 18 124/56 98 01/23/17 13:30 01/23/17 13:30 01/23/17 13:30 01/23/17 13:30 01/23/17 08:35 General appearance: Present: no acute distress Results - Labs CBC & Chem 7: 01/23/17 05:18 01/23/17 05:18 Labs: Laboratory Last Values WBC 7.5 K/mm3 (4.5-11.0) 01/23/17 05:18 RBC 3.12 M/mm3 (3.65-5.03) L 01/23/17 05:18 Hgb 10.4 gm/dl (11.8-15.2) L 01/23/17 05:18 Hct 30.6 % (35.5-45.6) L 01/23/17 05:18 MCV 98 fl (84-94) H 01/23/17 05:18 MCH 33 pg (28-32) H 01/23/17 05:18 MCHC 34 % (32-34) 01/23/17 05:18 RDW 16.5 % (13.2-15.2) H 01/23/17 05:18 Plt Count 360 K/mm3 (140-440) 01/23/17 05:18 Lymph % (Auto) 13.3 % (13.4-35.0) L 01/23/17 05:18 [place] % (Auto) 10.8 % (0.0-7.3) H 01/23/17 05:18 Eos % (Auto) 3.9 % (0.0-4.3) 01/23/17 05:18 Baso % (Auto) 1.0 % (0.0-1.8) 01/23/17 05:18 Lymph # 1.0 K/mm3 (1.2-5.4) L 01/23/17 05:18 [place] # 0.8 K/mm3 (0.0-0.8) 01/23/17 05:18 Eos # 0.3 K/mm3 (0.0-0.4) 01/23/17 05:18 Baso # 0.1 K/mm3 (0.0-0.1) 01/23/17 05:18 Seg Neutrophils % 71.0 % (40.0-70.0) H 01/23/17 05:18 Seg Neutrophils # 5.3 K/mm3 (1.8-7.7) 01/23/17 05:18 PT 19.8 Sec. (12.2-14.9) H 01/23/17 05:18 INR 1.68 (0.87-1.13) H 01/23/17 05:18 APTT 36.0 Sec. (24.2-36.6) 01/16/17 01:27 D-Dimer 656.96 ng/mlDDU (0-234) H 01/15/17 19:44 Heparin Anti-Xa Level 0.31 U.I./ml (0.3-0.7) 01/23/17 05:18 Sodium 135 mmol/L (137-145) L 01/23/17 05:18 Potassium 4.8 mmol/L (3.6-5.0) 01/23/17 05:18 Chloride 94.8 mmol/L (98-107) L 01/23/17 05:18 Carbon Dioxide 24 mmol/L (22-30) 01/23/17 05:18 Anion Gap 21 mmol/L 01/23/17 05:18 BUN 32 mg/dL (9-20) H 01/23/17 05:18 Creatinine 6.3 mg/dL (0.8-1.5) H 01/23/17 05:18 Estimated GFR 10 ml/min 01/23/17 05:18 BUN/Creatinine Ratio 5.07 % 01/23/17 05:18 Glucose 92 mg/dL (75-100) 01/23/17 05:18 Calcium 8.9 mg/dL (8.4-10.2) 01/23/17 05:18 Total Bilirubin 0.2 mg/dL (0.1-1.2) 01/23/17 05:18 AST 10 units/L (5-40) 01/23/17 05:18 ALT 7 units/L (7-56) 01/23/17 05:18 Alkaline Phosphatase 73 units/L (35-129) 01/23/17 05:18 Troponin T 0.092 ng/mL (0.00-0.029) H 01/15/17 19:44 Total Protein 5.7 g/dL (6.3-8.2) L 01/23/17 05:18 Albumin 3.4 g/dL (3.9-5) L 01/23/17 05:18 Albumin/Globulin Ratio 1.5 % 01/23/17 05:18
[2017-01-23] MEDS: COUMADIN PO SCH (16:44)
[2017-01-23] MEDS: MORPHINE IV PRN ×2 (17:18→22:44)
[2017-01-23] MEDS: FLEXERIL PO SCH (22:42)
[2017-01-23] MEDS: DESYREL PO SCH (22:42)
[2017-01-23] MEDS: MIRAPEX PO SCH (22:43)
[2017-01-24] MEDS: BENADRYL IV PRN ×4 (04:33→23:50)
[2017-01-24] MEDS: BENADRYL PO SCH ×3 (04:40→22:01)
[2017-01-24 05:53] LABS: Hematocrit 31.5 % (35.5-45.6); Hemoglobin 10.7 gm/dl (11.8-15.2)
[2017-01-24 05:58] LABS: INR 1.87 (0.87-1.13)
[2017-01-24] MEDS: HEPARIN/ 0.45% NACL-25,000 UNIT/500 ML 25,000 UNIT/500 ML BAG IV SCH ×2 (07:41→20:34)
[2017-01-24] MEDS: BROVANA NEBU IH SCH ×2 (08:11→20:13)
[2017-01-24] MEDS: PULMICORT IH SCH ×2 (08:11→20:13)
--- NOTE | 2017-01-24 08:52 | Progress Note ---
Assessment and Plan Assessment: * End stage renal disease on dialysis * Acute hypoxic respiratory failure * Bilateral PE * Subtherapeutic INR * Malfunctioning dialysis access/HERO graft * Anemia secondary to ESRD * Secondary hyperparathyroidism * Chronic hypotension Plan: * Continue HD MWF * Uneventful additional dialysis yesterday for ultrafiltration only * Anticoagulation per primary team * Vascular surgery recommendations reviewed * Renal diet * Epogen with dialysis * Dose medications for renal function * Patient requires Mildrodin prior to dialysis to maintain blood pressure Subjective Date of service: 01/24/17 Principal diagnosis: esrd Interval history: Patient feels better today. States that his shortness of breath has also improved. Uneventful extra dialysis yesterday for ultrafiltration. Patient remains on heparin drip Objective - Vital Signs Vital signs: Vital Signs - 12hr 01/24/17 01/24/17 01/24/17 01:09 05:28 08:12 Temperature 98.0 F 97.8 F Pulse Rate Pulse Rate [ 86 Bilateral Throughout] Pulse Rate [ 85 77 Right] Respiratory 20 20 Rate Respiratory 18 Rate [Bilateral Throughout] Blood Pressure 106/51 108/50 [Right Calf] O2 Sat by Pulse 480 H 94 Oximetry 01/24/17 08:42 Temperature Pulse Rate 78 Pulse Rate [ Bilateral Throughout] Pulse Rate [ Right] Respiratory Rate Respiratory Rate [Bilateral Throughout] Blood Pressure [Right Calf] O2 Sat by Pulse Oximetry - General Appearance General appearance: well-developed, well-nourished, appears stated age EENT: PERRL, mucous membranes moist Neck: no JVD, no thyromegaly, no carotid bruit, supple, other (right IJ PermCath in place) Respiratory: Present: Clear to Ascultation Cardiology: regular, normal heart rate Gastrointestinal: normal, normoactive bowel sounds Integumentary: other (no edema) - Lab 01/24/17 04:47 01/23/17 05:18 Most recent lab results Calcium 8.9 mg/dL (8.4-10.2) 01/23/17 05:18
[2017-01-24] MEDS: ROCALTROL PO SCH (09:35)
[2017-01-24] MEDS: FOLVITE PO SCH ×2 (09:35→22:02)
[2017-01-24] MEDS: PROTONIX PO SCH (09:35)
[2017-01-24] MEDS: PROAMATINE PO SCH (09:36)
[2017-01-24] MEDS: NEURONTIN PO SCH ×3 (09:36→20:34)
[2017-01-24] MEDS: MORPHINE IV PRN ×3 (09:44→22:02)
[2017-01-24] MEDS ORDERED: NACL 0.9% 1,000 ML IV PRN (10:41)
[2017-01-24] MEDS ORDERED: NACL 0.9 (PRIMING MACHINE ONLY DIALYSIS) MC ONE (11:48)
[2017-01-24] MEDS: PROCRIT IV PRN (13:07)
[2017-01-24] MEDS: HEPARIN IV PRN (14:29)
[2017-01-24] MEDS: COUMADIN PO SCH (17:45)
--- NOTE | 2017-01-24 18:53 | Progress Note ---
Assessment and Plan Assessment and plan: Patient is a 46-year-old man with a history of polycystic kidney disease status post bilateral nephrectomy with end-stage renal disease on hemodialysis, osteoarthritis, GERD, coagulation disorder, bilateral PE on anticoagulation and seizure disorder who presented with shortness of breath. Chest x-ray was unremarkable, VQ scan was normal, CT abdomen and pelvis without contrast showed no kidneys and was unremarkable for acute processes. 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 -Bilateral PE, acute on chronic: On IV heparin drip, Coumadin restarted INR 1.87 today."He was told by Trevon Dobbins Vascular PA that bilateral PEs are getting smaller as compared to the CTA chest done recently at [facility] in [place], [place]" Patient reports that it was discontinued on due to supratherapeutic INR and unfortunately was not restarted. He notes that he's had a bleed in the GI in the past but not this time. I did discuss close monitoring for this and if reoccurrence will need IVC filter. Patient verbalizes understanding -End-stage renal disease on hemodialysis: Nephrology to follow -Anemia chronic disease -Malfunction of hemodialysis access: Await vascular surgery evaluation==>no surgery until 6 weeks, left arm hero graft needs revision once fully anticoagulated so re-start Warfarin. DVT/GI prophylaxis Anticipate discharge once INR is therapeutic Plan of care discussed with the patient. y. History Interval history: Patient seen and examined today. reports improvement of shortness of breath, No other adverse event reported by nursing staff Hospitalist Physical - Physical exam Narrative exam: VITAL SIGNS: Reviewed. GENERAL: The patient appeared well nourished and normally developed. Vital signs as documented. HEAD: No signs of head trauma. EYES: Pupils are equal. Extraocular motions intact. EARS: Hearing grossly intact. MOUTH: Oropharynx is normal. NECK: No adenopathy, no JVD. CHEST: Chest with clear breath sounds bilaterally. No wheezes, rales, or rhonchi. CARDIAC: Regular rate and rhythm. S1 and S2, without murmurs, gallops, or rubs. VASCULAR: No Edema. Peripheral pulses normal and equal in all extremities. ABDOMEN: Soft, without detectable tenderness. No sign of distention. No rebound or guarding, and no masses palpated. Bowel Sounds normal. MUSCULOSKELETAL: Good range of motion of all major joints. Extremities without clubbing, cyanosis or edema. NEUROLOGIC EXAM: Alert and oriented x 3. No focal sensory or strength deficits. Speech normal. Follows commands. PSYCHIATRIC: Mood normal. SKIN: A-V fistula with positive thrill - Constitutional Vitals: Temp Pulse Resp BP Pulse Ox 98.4 F 84 18 140/50 98 01/24/17 17:51 01/24/17 17:51 01/24/17 17:51 01/24/17 17:51 01/24/17 17:51 General appearance: Present: no acute distress Results - Labs CBC & Chem 7: 01/24/17 04:47 01/23/17 05:18 Labs: Laboratory Last Values WBC 7.5 K/mm3 (4.5-11.0) 01/23/17 05:18 RBC 3.12 M/mm3 (3.65-5.03) L 01/23/17 05:18 Hgb 10.7 gm/dl (11.8-15.2) L 01/24/17 04:47 Hct 31.5 % (35.5-45.6) L 01/24/17 04:47 MCV 98 fl (84-94) H 01/23/17 05:18 MCH 33 pg (28-32) H 01/23/17 05:18 MCHC 34 % (32-34) 01/23/17 05:18 RDW 16.5 % (13.2-15.2) H 01/23/17 05:18 Plt Count 372 K/mm3 (140-440) 01/24/17 04:47 Lymph % (Auto) 13.3 % (13.4-35.0) L 01/23/17 05:18 [facility] % (Auto) 10.8 % (0.0-7.3) H 01/23/17 05:18 Eos % (Auto) 3.9 % (0.0-4.3) 01/23/17 05:18 Baso % (Auto) 1.0 % (0.0-1.8) 01/23/17 05:18 Lymph # 1.0 K/mm3 (1.2-5.4) L 01/23/17 05:18 [facility] # 0.8 K/mm3 (0.0-0.8) 01/23/17 05:18 Eos # 0.3 K/mm3 (0.0-0.4) 01/23/17 05:18 Baso # 0.1 K/mm3 (0.0-0.1) 01/23/17 05:18 Seg Neutrophils % 71.0 % (40.0-70.0) H 01/23/17 05:18 Seg Neutrophils # 5.3 K/mm3 (1.8-7.7) 01/23/17 05:18 PT 21.5 Sec. (12.2-14.9) H 01/24/17 04:47 INR 1.87 (0.87-1.13) H 01/24/17 04:47 APTT 36.0 Sec. (24.2-36.6) 01/16/17 01:27 D-Dimer 656.96 ng/mlDDU (0-234) H 01/15/17 19:44 Heparin Anti-Xa Level 0.64 U.I./ml (0.3-0.7) 01/23/17 20:21 Sodium 135 mmol/L (137-145) L 01/23/17 05:18 Potassium 4.8 mmol/L (3.6-5.0) 01/23/17 05:18 Chloride 94.8 mmol/L (98-107) L 01/23/17 05:18 Carbon Dioxide 24 mmol/L (22-30) 01/23/17 05:18 Anion Gap 21 mmol/L 01/23/17 05:18 BUN 32 mg/dL (9-20) H 01/23/17 05:18 Creatinine 6.3 mg/dL (0.8-1.5) H 01/23/17 05:18 Estimated GFR 10 ml/min 01/23/17 05:18 BUN/Creatinine Ratio 5.07 % 01/23/17 05:18 Glucose 92 mg/dL (75-100) 01/23/17 05:18 Calcium 8.9 mg/dL (8.4-10.2) 01/23/17 05:18 Total Bilirubin 0.2 mg/dL (0.1-1.2) 01/23/17 05:18 AST 10 units/L (5-40) 01/23/17 05:18 ALT 7 units/L (7-56) 01/23/17 05:18 Alkaline Phosphatase 73 units/L (35-129) 01/23/17 05:18 Troponin T 0.092 ng/mL (0.00-0.029) H 01/15/17 19:44 Total Protein 5.7 g/dL (6.3-8.2) L 01/23/17 05:18 Albumin 3.4 g/dL (3.9-5) L 01/23/17 05:18 Albumin/Globulin Ratio 1.5 % 01/23/17 05:18
[2017-01-24] MEDS: MIRAPEX PO SCH (22:02)
[2017-01-24] MEDS: FLEXERIL PO SCH (22:03)
[2017-01-24] MEDS: DESYREL PO SCH (22:03)
[2017-01-25] MEDS: MORPHINE IV PRN ×2 (05:17→10:57)
[2017-01-25] MEDS: BENADRYL IV PRN ×2 (05:17→10:57)
[2017-01-25 06:55] LABS: INR 2.03 (0.87-1.13)
[2017-01-25] MEDS: BROVANA NEBU IH SCH (07:29)
[2017-01-25] MEDS: PULMICORT IH SCH (07:30)
[2017-01-25] MEDS: HEPARIN/ 0.45% NACL-25,000 UNIT/500 ML 25,000 UNIT/500 ML BAG IV SCH (07:37)
[2017-01-25 07:53] VITALS: BP 103/47
--- NOTE | 2017-01-25 08:02 | Discharge Summary ---
Providers - Providers Date of Admission: 01/16/17 02:44 Date of discharge: 01/25/17 Attending physician: SRIDHAR BURT 01/17/17 10:19 Consult to Physician [CONS] Routine Consulting Provider: HI LIANG Reason For Exam: hemo pt Place consult to:: Dr Liang Notified:: yes Phone number called:: over head page Was contact made?: Yes If yes, spoke with:: Dr. liang Primary care physician: BHARATH FELICIANO Hospitalization Condition: Good Disposition: DISCHARGED TO HOME OR SELFCARE - Discharge Diagnoses (1) Subtherapeutic international normalized ratio (INR) Status: Acute (2) History of pulmonary embolism Status: Acute Core Measure Documentation - Palliative Care Palliative Care/ Comfort Measures: Not Applicable - Core Measures Any of the following diagnoses?: history only Exam - Constitutional Vitals: Temp Pulse Resp BP Pulse Ox 97.6 F 82 18 103/47 96 01/25/17 04:40 01/25/17 07:46 01/25/17 07:46 01/25/17 04:40 01/25/17 04:40 Plan Activity: advance as tolerated Diet: low fat, low cholesterol, low salt, renal Additional Instructions: 1.Follow up with PCP in 3-5 days. 2.Check INR on Sunday01/29/17 by home health and send result to PCP. His PCP to adjust Coumadin to target INR 2-3. 3.Continue routine hemodialysis. 4.Follow up with Vascular surgeon as scheduled. Follow up with: BHARATH FELICIANO MD [Primary Care Provider] - 7 Days Forms: Warfarin Discharge Instruction Prescriptions: Benzonatate 200 mg PO TID PRN #20 capsule PRN Reason: Cough guaiFENesin [Robitussin] 100 mg PO BID PRN #1 bottle PRN Reason: Cough
[2017-01-25] MEDS: ROCALTROL PO SCH (09:13)
[2017-01-25] MEDS: NEURONTIN PO SCH (09:13)
[2017-01-25] MEDS: BENADRYL PO SCH (09:13)
[2017-01-25] MEDS: FOLVITE PO SCH (09:13)
[2017-01-25] MEDS: PROAMATINE PO SCH (09:13)
[2017-01-25] MEDS: PROTONIX PO SCH (09:13)
--- NOTE | 2017-01-25 12:14 | Progress Note ---
Assessment and Plan Assessment: * End stage renal disease on dialysis * Acute hypoxic respiratory failure * Bilateral PE * Subtherapeutic INR * Malfunctioning dialysis access/HERO graft * Anemia secondary to ESRD * Secondary hyperparathyroidism * Chronic hypotension Plan: * Continue HD MWF * Uneventful additional dialysis yesterday * His INR is therapeutic today. Plans for discharge from oral Coumadin noted * Vascular surgery recommendations reviewed * Renal diet * Epogen with dialysis * Dose medications for renal function * Patient requires Mildrodin prior to dialysis to maintain blood pressure Subjective Date of service: 01/25/17 Principal diagnosis: esrd Interval history: Patient is comfortable. Denies any shortness of breath. No nausea or vomiting Objective - Vital Signs Vital signs: Vital Signs - 12hr 01/25/17 01/25/17 01/25/17 00:35 01:44 04:40 Temperature 97.9 F 97.6 F Pulse Rate 98 H Pulse Rate [ Bilateral Throughout] Pulse Rate [ 87 From Monitor] Pulse Rate [ 83 Right Radial] Respiratory 20 20 Rate Respiratory Rate [Bilateral Leg] Respiratory Rate [Bilateral Throughout] Blood Pressure 96/48 103/47 [Right Calf] O2 Sat by Pulse 97 96 Oximetry 01/25/17 01/25/17 01/25/17 07:30 07:46 10:00 Temperature Pulse Rate 85 Pulse Rate [ 80 82 Bilateral Throughout] Pulse Rate [ From Monitor] Pulse Rate [ Right Radial] Respiratory Rate Respiratory Rate [Bilateral Leg] Respiratory 18 18 Rate [Bilateral Throughout] Blood Pressure [Right Calf] O2 Sat by Pulse Oximetry 01/25/17 10:20 Temperature Pulse Rate Pulse Rate [ Bilateral Throughout] Pulse Rate [ From Monitor] Pulse Rate [ Right Radial] Respiratory Rate Respiratory 18 Rate [Bilateral Leg] Respiratory Rate [Bilateral Throughout] Blood Pressure [Right Calf] O2 Sat by Pulse Oximetry - General Appearance General appearance: well-developed, well-nourished, appears stated age EENT: PERRL, mucous membranes moist Neck: no JVD, no thyromegaly, other (right IJ PermCath in place) Respiratory: Present: Clear to Ascultation Cardiology: regular, normal heart rate, S1S2, no murmurs Gastrointestinal: normal, normoactive bowel sounds Integumentary: no rash, other (no edema) - Lab 01/24/17 04:47 01/23/17 05:18 Most recent lab results Calcium 8.9 mg/dL (8.4-10.2) 01/23/17 05:18
== END 2017-01-25 15:30 | disposition home health service (06) | DRG 314 ==
LOC: ED 18:35 → 4A 01-16 02:44
PROVIDERS: ADMIT Internal Medicine; ATTEND Internal Medicine
PROC: 5A1D60Z (ICD-10-PCS; principal; 2017-01-22)
DX: T82.318A Breakdown (mechanical) of other vascular grafts, initial encounter (principal); N18.6 End stage renal disease; I26.99 Other pulmonary embolism without acute cor pulmonale; J96.01 Acute respiratory failure with hypoxia; N25.81 Secondary hyperparathyroidism of renal origin; I27.82 Chronic pulmonary embolism; Q61.3 Polycystic kidney, unspecified; K21.9 Gastro-esophageal reflux disease without esophagitis; M19.90 Unspecified osteoarthritis, unspecified site; G40.909 Epilepsy, unspecified, not intractable, without status epilepticus; G62.9 Polyneuropathy, unspecified; G89.29 Other chronic pain; D63.1 Anemia in chronic kidney disease; I95.9 Hypotension, unspecified; Y83.8 Other surgical procedures as the cause of abnormal reaction of the patient, or of later complication, without mention of misadventure at the time of the procedure; Y92.89 Other specified places as the place of occurrence of the external cause; Z88.1 Allergy status to other antibiotic agents; Z88.8 Allergy status to other drugs, medicaments and biological substances; Z79.899 Other long term (current) drug therapy; Z86.718 Personal history of other venous thrombosis and embolism; Z79.01 Long term (current) use of anticoagulants; Z82.49 Family history of ischemic heart disease and other diseases of the circulatory system; Z90.5 Acquired absence of kidney
CPT/HCPCS: 36415; 71020; 71275; 74176; 78582; 80048; 80053; 84484; 85014; 85018; 85025; 85049; 85379; 85520; 85610; 85730; 93005; 93010; 93970; 94640; 96374; A9540; A9558; J0885; J1200; J1644; J2270; J7030; Q9967

== ENCOUNTER 2017-03-22 09:52 | Day surgery (SDC) | payer MEDICARE, OTHER ==
[~2017-03-22 09:52] MED LIST: ANCEF/STERILE WATER 2 GM/20 ML 2 GM/20 ML SYRINGE IV NR; NACL 0.9% 1000 ML 1,000 ML IV SCH
[2017-03-22 10:26] LABS: Eosinophils % (Auto) 5.7 % (0.0-4.3); Hematocrit 27.6 % (35.5-45.6); Hemoglobin 9.6 gm/dl (11.8-15.2); Mean Corpuscular HGB Conc 35 % (32-34); Mean Corpuscular Hemoglobin 34 pg (28-32); Mean Corpuscular Volume 98 fl (84-94); Platelet Count 413 K/mm3 (140-440); Red Blood Count 2.82 M/mm3 (3.65-5.03); Red Cell Distribution Width 16.5 % (13.2-15.2); White Blood Count 7.9 K/mm3 (4.5-11.0)
[2017-03-22 10:45] LABS: INR 2.92 (0.87-1.13)
[2017-03-22 11:01] LABS: Partial Thromboplastin Time 74.4 Sec. (24.2-36.6)
[2017-03-22 11:03] LABS: BUN/Creatinine Ratio 4.9; Calcium 9.4 mg/dL (8.4-10.2)
[2017-03-22 11:04] LABS: Chloride 99.6 mmol/L (98-107); Potassium 4.2 mmol/L (3.6-5.0)
[2017-03-22] MEDS ORDERED: ePHEDrine SULFATE ONE (13:57)
[2017-03-22] MEDS ORDERED: DILAUDID ONE ×2 (14:52→18:14)
[2017-03-22] MEDS ORDERED: VERSED ONE (14:52)
[2017-03-22] MEDS ORDERED: DIPRIVAN 10 MG/ML IV ONE (14:52)
[2017-03-22] MEDS ORDERED: DIPRIVAN 10 MG/ML 0 MG/0 ML BOTTLE IV ONE (14:52)
[2017-03-22] MEDS ORDERED: DIPRIVAN 10 MG/ML 1,000 MG/100 ML BOTTLE IV ONE (14:53)
[2017-03-22] MEDS ORDERED: NACL 0.9% 100 ML ONE ×2 (15:00→17:08)
[2017-03-22] MEDS ORDERED: NEO SYNEPHRINE ONE (15:00)
[2017-03-22] MEDS ORDERED: XYLOCAINE 2% INFILTRATI ONE (15:36)
[2017-03-22] MEDS ORDERED: HEPARIN/NS 5000 UNIT/500ML(CATH LAB) 500 ML IR ONE ×2 (15:36→16:20)
[2017-03-22] MEDS ORDERED: ANCEF/STERILE WATER 2 GM/20 ML 2 GM/20 ML SYRINGE IV ONE (15:36)
[2017-03-22] MEDS ORDERED: WATER FOR INJ (PF) 10 ML ONE (16:08)
[2017-03-22] MEDS ORDERED: CATHFLO ONE (16:08)
--- NOTE | 2017-03-22 18:04 | Short Stay Summary ---
Short Stay Documentation Date of service: 03/22/17 Narrative H&P: 46-year-old male with end-stage renal disease and left upper extremity AV access which has thrombosed who presents for thrombectomy. - History H&P: obtained from office Past Medical History: dialysis, ESRD Past Surgical History: Other (multiple AVG) - Allergies and Medications Current Medications: Allergies levetiracetam [From Keppra] Allergy (Verified 05/03/15 10:34) Hives nalbuphine HCl [From Nubain] Adverse Reaction (Verified 12/29/16 10:31) AGGRESSIVE OUT BURST Home Medications Medication Instructions Recorded Confirmed Last Taken Type Cyclobenzaprine HCl [Flexeril] 10 mg PO QHS 06/08/15 03/22/17 03/21/17 History Calcitriol [Rocaltrol] 0.25 mcg PO QDAY #30 capsule 09/29/15 03/22/17 03/21/17 Rx Gemfibrozil [Lopid] 600 mg PO BID #60 tablet 09/29/15 03/22/17 03/21/17 Rx Gabapentin [Neurontin] 100 mg PO TID 08/16/16 03/22/17 03/21/17 History diphenhydrAMINE [Benadryl CAP] 50 mg PO BID 08/22/16 03/22/17 03/21/17 History traZODone [Desyrel] 50 mg PO QHS 08/23/16 03/22/17 03/21/17 History Pantoprazole [Protonix TAB] 40 mg PO QDAY 09/14/16 03/22/17 03/21/17 History Pramipexole [Mirapex] 0.5 mg PO QHS 09/14/16 03/22/17 03/21/17 History Benzonatate [Tessalon Perles] 100 mg PO TID 10/25/16 03/22/17 03/22/17 04:00 History Folic Acid 1 mg PO DAILY 10/25/16 03/22/17 03/21/17 History ALBUTEROL Inhaler [ProAir HFA 1 puff IH QID PRN #1 inha 12/15/16 03/22/17 06:00 Rx Inhaler] Zolpidem [Ambien] 5 mg PO QHS PRN 01/15/17 03/22/17 03/21/17 History Hydrocortisone [Cortef TAB] 10 mg PO Q12HR #60 tablet 02/28/17 03/22/17 04:00 Rx Midodrine [Proamatine] 15 mg PO TID #180 tablet 02/28/17 03/22/17 03/22/17 04: 00 Rx Warfarin [Coumadin] 5 mg PO QDAY #30 tablet 02/28/17 03/22/17 03/21/17 Rx oxyCODONE /ACETAMINOPHEN [Percocet 1 tab PO Q6HR PRN #12 tablet 02/28/1703/22/17 04:00 Rx 5/325] Active Medications Cefazolin Sodium (Ancef/Sterile Water 2 Gm/20 Ml) 2 gm in 20 mls @ 80 mls/hr IV PREOP NR PRN Reason: Protocol Stop: 03/22/17 23:00 Sodium Chloride (Nacl 0.9% 1000 Ml) 1,000 mls @ 42 mls/hr IV DIRECT KYRA - Physical exam General appearance: no acute distress Lungs: Normal air movement Extremities: abnormal (thrombosed LUE AVG) - Brief post op/procedure progress note Date of procedure: 03/22/17 Pre-op diagnosis: ESRD with thrombosed LUE AVG Post-op diagnosis: same Procedure: declot, thrombectomy, Anesthesia: local (w/ conscious sedation) Surgeon: SAVAGE CRISTOBAL Estimated blood loss: minimal Condition: stable - Hospital course Hospital course: Tolerated procedure well. Restored flow. Can be discharged once anesthesiology feels comfortable. - Disposition Condition at discharge: Stable Disposition: DC-01 TO HOME OR SELFCARE Short Stay Discharge Plan Activity: advance as tolerated Weight Bearing Status: Weight Bear as Tolerated Diet: renal Wound: keep clean and dry Follow up with: BHARATH FELICIANO MD [Primary Care Provider] - 7 Days
[2017-03-22] MEDS ORDERED: DILAUDID IV ONE (18:16)
--- NOTE | 2017-03-22 18:30 | Operative Report ---
Operative Report Operative Report: EXAM: 1. Ultrasound guided access of the AV graft towards the venous limb. 2. Placement of a 7 [place] sheath 3. Selection of the right atrium with venography 4. Infusion of 4 mg of TPA throughout the length of the AV graft and central portion of the HERO graft 5. Angioplasty of the AV graft and central portion of the HERO graft with an 8 mm angioplasty balloon 6. Trerotola mechanical thrombectomy of the AV graft with quaker of flow. 7. Ultrasound-guided access of the AV graft towards the arterial anastomosis 8. Placement of a 6 [place] sheath 9. Selection of the brachial artery was angiography 10. Devante thrombectomy of the arterial limb 11. Angioplasty of the AV graft at the arterial anastomosis with a 6 mg angioplasty balloon 12. Devante thrombectomy of both the arterial anastomosis towards the venous outflow multiple times with repeat Trerotola thrombectomy INDICATION: THROMBOSED LEFT ARM AV HERO GRAFT WITH END-STAGE RENAL DISEASE. DATE: 03/22/17 MEDICATIONS: Please refer to anesthesiology documentation for complete list of medications and heparin administration. 4 MG OF TPA DELIVERED INTO THE THROMBUS COMPLICATIONS: NONE IMMEDIATE SPRING FORMER HAND: SAVAGE CRISTOBAL MD CONTRAST: See company laborer report for full details PROCEDURE: The procedure was discussed with the patient and the risks, benefits, and alternatives were discussed with the patient. Informed consent was obtained. The patient was transported into the angiography suite in stable condition and placed on the angiographic table. The left arm was assessed under real-time ultrasound which demonstrated a thrombosed left arm AV graft. The patient was prepped and draped in a sterile fashion. Lidocaine was used to anesthetize the skin. Under ultrasound guidance, the AV graft was punctured with the needle pointing towards the venous limb. 0.018 inch wire was advanced through the needle and this was exchanged for a transitional dilator. The wire would not pass through the midportion of the graft concerning for an underlying irregularity within the graft. The inner dilator and wire were removed and a 0.035 inch Glidewire advantage wire was advanced through the transitional dilator. The dilator was exchanged for a 7 [place] short sheath. Angled catheter was advanced over the wire and the wire was advanced into the inferior vena cava under fluoroscopic guidance. Then the wire was removed and the Angled catheter was used to perform a pullback venogram. Digital subtraction venography was performed in the right atrium immediately outside of the hero graft vein which demonstrated flow into the right atrium, but the hero graft itself was occluded. 4 mg of TPA were infused through the length of the clot to the sheath as the arterial anastomosis was manually compressed. Angled catheter and Ibarra wire were negotiated into the inferior vena cava. Catheter was exchanged for an 8 mm x 8 cm balloon and the HERO graft and AVG was sequentially venoplasty. Trerotola thrombectomy device was used multiple times to the venous limb. Trerotola device was then removed. The devante balloon was used to sweep from the sheath to the central veins. The arm was then punctured towards the arterial anastomosis under ultrasound guidance. 0.018 inch wire was advanced through the needle and exchanged for transitional dilator. The inner dilator and wire were removed and a 0.035 inch Ibarra wire was advanced to the transitional dilator. The dilator was exchanged for 6 [place] short sheath. The angled catheter was advanced over the 0.035 wire and the wire was advanced into the [place] brachial artery in a retrograde fashion. Digital subtraction angiography was performed demonstrating patency of the brachial artery proximal and distal to the anastomosis. Devante catheter was inflated and use to sweep the anastomosis multiple times, pulling the plug towards the venous limb. Devante catheter was exchanged for the angled catheter and digital subtraction angiography was performed demonstrating no significant flow through the graft. 6 mm angioplasty balloon was advanced over the wire and use perform angioplasty at the arterial anastomosis which was severely narrowed. Devante catheter was exchanged for the catheter and used to perform thrombectomy at both the arterial limb and then the venous limb. Digital subtraction angiography was performed to the venous sheath demonstrating some mild irregularity in the distal portion of the graft, but patency otherwise the graft. 8 mm angioplastied was advanced over the wire and used to perform angioplasty at the distal portion of the AV graft. Afterwards, there were stagnant flow throughout the graft. I decided to perform Trerotola mechanical thrombectomy throughout the venous portion of the AV graft again and subsequently performed Devante thrombectomy of the arterial and then the venous limb. Afterwards, there is flow within the graft. Digital subtraction angiography demonstrated mild nonflow limiting thrombus within the graft, which now had a gentle thrill. The hero graft portion of the graft was patent, and the arterial anastomosis was patent. The brachial artery proximal and distal to the anastomosis was patent. All the wires were removed. 3-0 Vicryl sutures were used to close the fistula access sites. Dermabond was applied. Pressure was held until hemostasis was achieved. The patient was then transferred to the outpatient recovery area. FINDINGS: Please see procedure note for details. IMPRESSION: 1. Successful pharmacomechanical thrombectomy of the thrombosed left upper extremity HERO AV graft. 2. Successful venoplasty of the central venous portion of the graft (HERO graft ), AVG graft and arterial anastamosis.
[2017-03-22 19:20] VITALS: BP 98/42
== END 2017-03-22 21:00 | disposition home or self-care (01) ==
LOC: OPU 09:52
PROVIDERS: ATTEND Radiology Diagnostic Radiology
DX: T82.868A Thrombosis due to vascular prosthetic devices, implants and grafts, initial encounter (principal); I12.0 Hypertensive chronic kidney disease with stage 5 chronic kidney disease or end stage renal disease; N18.6 End stage renal disease; K21.9 Gastro-esophageal reflux disease without esophagitis; E03.9 Hypothyroidism, unspecified; D64.9 Anemia, unspecified; F32.9 Major depressive disorder, single episode, unspecified; M19.90 Unspecified osteoarthritis, unspecified site; Z90.5 Acquired absence of kidney; Z99.2 Dependence on renal dialysis; Z88.8 Allergy status to other drugs, medicaments and biological substances; Z79.01 Long term (current) use of anticoagulants; Z79.899 Other long term (current) drug therapy; Z98.890 Other specified postprocedural states; Y83.2 Surgical operation with anastomosis, bypass or graft as the cause of abnormal reaction of the patient, or of later complication, without mention of misadventure at the time of the procedure
CPT/HCPCS: 36415; 36905; 76937; 80048; 85025; 85610; 85730; 96374; C1725; C1751; C1757; C1769; C1894; J0690; J1170; J1644; J2250; J2370; J2704; J2997; Q9967

== ENCOUNTER 2017-03-24 13:07 | Emergency (ER) | payer MEDICARE, OTHER ==
[2017-03-24] MEDS ORDERED: DILAUDID IM ONE (13:59)
[2017-03-24] MEDS ORDERED: HEPARIN 10,000 UNITS/10 ML ONE (15:23)
[2017-03-24] MEDS ORDERED: FLUSH HEPARIN IV ONE (15:27)
--- NOTE | 2017-03-24 15:27 | Emergency Department Report ---
Upper Extremity - HPI Chief Complaint: Medical Clearance Stated Complaint: SWELLING AT SURGERY SITE/ L UPPER EXTREMITY Time Seen by Provider: 03/24/17 13:53 Upper Extremity: Left Shoulder, Left Arm Occurred When: 1 Day Mechanism: Fall Severity: moderate Symptoms: Yes Pain with Movement, Yes Bruising/Ecchymosis, No Deformity, No Limited Range of Movement, No Numbness, No Weakness Other History: 46-year-old male presents to the emergency department via EMS complaining of left arm pain and swelling. Patient states that 2 days ago he underwent declotting of his left upper extremity hero graft. He states EMS took him home that evening and the wheels of the EMS stretcher went off the sidewalk causing him to fall. He landed on his left shoulder. This morning, he notes increasing pain in the left shoulder and left arm. He noted lots of bruising and enlarged veins in his left arm. He states he called the on-call vascular surgeon and was told to come to the emergency department for evaluation. There are no other complaints. ED Review of Systems ROS: Stated complaint: SWELLING AT SURGERY SITE/ L UPPER EXTREMITY Other details as noted in HPI Comment: All other systems reviewed and negative Musculoskeletal: as per HPI, arthralgia ED Past Medical Hx - Past Medical History Previous Medical History?: Yes Hx Hypertension: Yes Hx Congestive Heart Failure: No Hx Diabetes: No Hx Deep Vein Thrombosis: Yes Hx GERD: Yes Hx Renal Disease: Yes (CKD, on dialysis MWF, secondary hyperparathyroidism) Hx Arthritis: Yes Hx Seizures: Yes (last sz 10 years ago; no longer taking meds) Hx Asthma: Yes Hx COPD: Yes - Surgical History Past Surgical History?: Yes Additional Surgical History: Right chest permcath, Left arm AV graft. Hx. of left and right arm AV grafts - Family History Family history: no significant - Social History Smoking Status: Never Smoker Substance Use Type: None - Medications Home Medications: Home Medications Medication Instructions Recorded Confirmed Last Taken Type Cyclobenzaprine HCl [Flexeril] 10 mg PO QHS 06/08/15 03/22/17 03/21/17 History Calcitriol [Rocaltrol] 0.25 mcg PO QDAY #30 capsule 09/29/15 03/22/17 03/21/17 Rx Gemfibrozil [Lopid] 600 mg PO BID #60 tablet 09/29/15 03/22/17 03/21/17 Rx Gabapentin [Neurontin] 100 mg PO TID 08/16/16 03/22/17 03/21/17 History diphenhydrAMINE [Benadryl CAP] 50 mg PO BID 08/22/16 03/22/17 03/21/17 History traZODone [Desyrel] 50 mg PO QHS 08/23/16 03/22/17 03/21/17 History Pantoprazole [Protonix TAB] 40 mg PO QDAY 09/14/16 03/22/17 03/21/17 History Pramipexole [Mirapex] 0.5 mg PO QHS 09/14/16 03/22/17 03/21/17 History Benzonatate [Tessalon Perles] 100 mg PO TID 10/25/16 03/22/17 03/22/17 04:00 History Folic Acid 1 mg PO DAILY 10/25/16 03/22/17 03/21/17 History ALBUTEROL Inhaler [ProAir HFA 1 puff IH QID PRN #1 inha 12/15/16 03/22/17 06:00 Rx Inhaler] Zolpidem [Ambien] 5 mg PO QHS PRN 01/15/17 03/22/17 03/21/17 History Hydrocortisone [Cortef TAB] 10 mg PO Q12HR #60 tablet 02/28/17 03/22/17 04:00 Rx Midodrine [Proamatine] 15 mg PO TID #180 tablet 02/28/17 03/22/17 03/22/17 04: 00 Rx Warfarin [Coumadin] 5 mg PO QDAY #30 tablet 02/28/17 03/22/17 03/21/17 Rx oxyCODONE /ACETAMINOPHEN [Percocet 1 tab PO Q6HR PRN #12 tablet 02/28/1703/22/17 04:00 Rx 5/325] Upper Extremity Exam - Exam General: Vital signs noted. No distress. Alert and acting appropriately. Head and Torso: No HEENT Abnormality, No Neck Tenderness, No Chest/Lungs Abnormality, No Abdominal Tenderness, No Back Tenderness Shoulder Exam: Yes Normal Range of Motion in Shoulder, No Shoulder Tenderness, No Clavicle Tenderness, No Shoulder Deformity, No AC Joint Tenderness Arm Exam: No Arm/Humerus Tenderness, No Arm Deformity Elbow: Yes Normal Range of Motion in Elbow, No Elbow Tenderness, No Elbow Deformity Forearm: No Forearm Tenderness, No Forearm Deformity, No Pain with Pronation, No Pain with Supination Wrist: Yes Normal ROM in Wrist, No Wrist Tenderness, No Wrist Deformity, No Snuffbox Tenderness, No Pain with Axial Thumb Compression Hand: Yes Normal ROM in Digit(s), No Hand Tenderness, No Hand Deformity, No Digit Tenderness, No Digit(s) Deformity, No Tendon Dysfunction CMS Exam: Yes Normal Distal Pulses, Yes Normal Capillary Refill, Yes Normal Distal Sensation, No Broken Skin (marked ecchymosis noted to the medial aspect of the LUE at the shoulder joint. Multiple distended veins noted distal and proximal to the area of ecchymosis) ED Course Vital Signs 03/24/17 13:47 Pulse Rate 97 H Respiratory 16 Rate O2 Sat by Pulse 96 Oximetry - Consultations Consultation #1: 03/24/17 15:57 I have spoken with Dr. Gonzalez, vascular surgery. He states the patient's needs a CTA of his left arm during evaluate the integrity of the graft. If the graft is intact, the patient can be discharged home. Otherwise patient will need to go to the OR for revision. ED Medical Decision Making - Lab Data Result diagrams: 03/24/17 15:55 03/24/17 15:55 - Radiology Data Radiology results: report reviewed, image reviewed CTA of the left upper extremity reveals no evidence of contrast extravasation. The vascular grafts are not adequately perfused, so, it is on patient's he cannot be made. - Medical Decision Making Lab and imaging results reviewed and discussed with the patient. I've also spoken with Dr. Gonzalez regarding CTA results. He states the patient can be discharged home to follow up in their office. Patient states he has an appointment with vascular surgery as already scheduled in 3 days. Patient will be discharged home at this time. - Differential Diagnosis graft malfunction, thrombosis Critical care attestation.: If time is entered above; I have spent that time in minutes in the direct care of this critically ill patient, excluding procedure time. ED Disposition Clinical Impression: Left anterior shoulder pain Disposition: DC-01 TO HOME OR SELFCARE Is pt being admited?: No Condition: Stable Instructions: Arthralgia (ED) Referrals: PRIMARY CARE, [Primary Care Provider] - 3-5 Days Time of Disposition: 20:03
[2017-03-24] MEDS ORDERED: NACL ONE (16:00)
[2017-03-24] MEDS ORDERED: DILAUDID ONE (16:10)
[2017-03-24] MEDS ORDERED: DILAUDID IV ONE (16:12)
[2017-03-24 16:17] LABS: Basophils % (Auto) 0.9 % (0.0-1.8); Hematocrit 25.8 % (35.5-45.6); Hemoglobin 8.9 gm/dl (11.8-15.2); Mean Corpuscular HGB Conc 34 % (32-34); Mean Corpuscular Hemoglobin 34 pg (28-32); Mean Corpuscular Volume 100 fl (84-94); Platelet Count 354 K/mm3 (140-440); Red Blood Count 2.59 M/mm3 (3.65-5.03); Red Cell Distribution Width 17.5 % (13.2-15.2); White Blood Count 9.7 K/mm3 (4.5-11.0)
[2017-03-24 16:23] LABS: BUN/Creatinine Ratio 4.65; Calcium 9.3 mg/dL (8.4-10.2); Chloride 98.2 mmol/L (98-107)
[2017-03-24 16:33] LABS: INR 2.98 (0.87-1.13)
[2017-03-24 16:40] LABS: Partial Thromboplastin Time 137.8 Sec. (24.2-36.6)
--- NOTE | 2017-03-24 18:47 | Cat Scan Report ---
FINAL REPORT PROCEDURE: CT angiogram left upper extremity with contrast. TECHNIQUE: Computerized tomographic angiography of the LEFT upper extremity was performed after the IV injection of iodinated nonionic contrast including image processing. The image data was postprocessed using 2-dimensional multiplanar reformatted (MPR) and 3-dimensional (MIP and/or volume rendered) techniques. HISTORY: possible hero graft disruption COMPARISON: No prior studies are available for comparison. FINDINGS: The study is of limited diagnostic quality. The contrast enhancement of the arterial system is quite faint. The left subclavian and axillary arteries are patent. There is faint enhancement of the left brachial artery. There appears to be a surgical graft that extends from the brachial artery laterally and superiorly in the soft tissues of the shoulder. This is probably a dialysis graft. When this graft gets close to the skin surface it is connected to a prosthetic catheter. This catheter courses medially and appears to enter the left innominate vein directly. There is some faint enhancement visible in the left innominate vein. The catheter continues into the superior vena cava. I cannot evaluate the patency of this catheter nor the surgical graft segment due to the poor contrast enhancement in the study. There are numerous vascular stents present. These are probably within the left axillary vein, left subclavian vein and also the left cephalic vein. Again the patency of these stents is not determined. The soft tissues of the left shoulder and upper extremity are unremarkable. There are no signs of a hematoma. There are no abnormal fluid collections. IMPRESSION: Limited study as described above.
[2017-03-24] MEDS ORDERED: BENADRYL IV ONE (19:37)
[2017-03-24 20:53] VITALS: BP 111/72
== END 2017-03-24 20:50 | disposition home or self-care (01) ==
LOC: ED 13:07
DX: M25.512 Pain in left shoulder (principal); I10 Essential (primary) hypertension; K21.9 Gastro-esophageal reflux disease without esophagitis; J45.909 Unspecified asthma, uncomplicated; J44.9 Chronic obstructive pulmonary disease, unspecified
CPT/HCPCS: 36415; 73206; 80048; 85025; 85610; 85730; 96372; 96374; 96375; 99284; J1170; J1200; J1642; Q9967; J1644

== ENCOUNTER 2017-03-29 12:22 | Day surgery (SDC) | payer MEDICARE, OTHER ==
[2017-03-29 14:00] LABS: Basophils % (Auto) 0.9 % (0.0-1.8); Eosinophils % (Auto) 3.3 % (0.0-4.3); Hematocrit 27.7 % (35.5-45.6); Hemoglobin 9.5 gm/dl (11.8-15.2); Mean Corpuscular HGB Conc 34 % (32-34); Mean Corpuscular Hemoglobin 35 pg (28-32); Mean Corpuscular Volume 101 fl (84-94); Platelet Count 287 K/mm3 (140-440); Red Blood Count 2.74 M/mm3 (3.65-5.03); Red Cell Distribution Width 19.7 % (13.2-15.2)
[2017-03-29 14:11] LABS: INR 2.9 (0.87-1.13)
--- NOTE | 2017-03-29 14:11 | Anesthesia Consultation ---
Anesthesia Consult and Med Hx Date of service: 03/29/17 - Airway Anesthetic Teeth Evaluation: Dentures, Edentulous ROM Head & Neck: Inadequate Mental/Hyoid Distance: Inadequate Mallampati Class: Class III Intubation Access Assessment: Possibly Difficult - Pulmonary Exam CTA: Yes - Cardiac Exam Cardiac Exam: RRR - Pre-Operative Health Status ASA Pre-Surgery Classification: ASA4 Proposed Anesthetic Plan: MAC - Pulmonary Hx Asthma: Yes SOB: Yes (Wears O2 at home 2L PRN, with fluid overload) COPD: Yes Hx Pneumonia: Yes Hx Sleep Apnea: Yes (DX SLEEP APNEA, NO CPAP USE) - Cardiovascular System Hx Hypertension: Yes Hx Heart Murmur: Yes (CAUSES NO PROBLEMS) Hx Peripheral Vascular Disease: Yes (history of PE 2014, 11/2016) - Central Nervous System Hx Neuromuscular Disorder: Yes (neuropathy- has spinal cord stimulator) Hx Seizures: Yes (last sz 10 years ago; no longer taking meds) Hx Back Pain: Yes (CHRONIC/SPINAL CORD STIMULATOR) Hx Psychiatric Problems: Yes - Gastrointestinal Hx Gastroesophageal Reflux Disease: Yes - Endocrine Hx Renal Disease: Yes (CKD, on dialysis MWF, secondary hyperparathyroidism) Hx End Stage Renal Disease: Yes Hx Insulin Dependent Diabetes: No Hx Thyroid Disease: No - Hematic Hx Anemia: Yes - Other Systems Hx Cancer: No Hx Obesity: Yes (morbid)
--- NOTE | 2017-03-29 14:11 | Anesthesia Day of Surgery ---
Anesthesia Day of Surgery - Day of Surgery Patient Examined: Yes Patient H&P Reviewed: Yes Patient is NPO: Yes
[2017-03-29 14:13] LABS: BUN/Creatinine Ratio 6.61; Calcium 9.6 mg/dL (8.4-10.2); Chloride 95.4 mmol/L (98-107); Potassium 4.2 mmol/L (3.6-5.0)
[2017-03-29 14:26] LABS: Partial Thromboplastin Time 71.7 Sec. (24.2-36.6)
[2017-03-29 14:48] VITALS: BP 117/76
[2017-03-29] MEDS ORDERED: BENADRYL IV ONE (15:35)
--- NOTE | 2017-03-29 17:55 | Short Stay Summary ---
Short Stay Documentation Date of service: 03/29/17 Narrative H&P: 46 year old male with ESRD who presented for declot. Thrombectomy had to be cancelled due to one of the room breaking and STEMI on the only room left. - History H&P: obtained from office - Allergies and Medications Current Medications: Allergies chlorhexidine Allergy (Verified 03/29/17 14:59) Rash levetiracetam [From Keppra] Allergy (Verified 05/03/15 10:34) Hives nalbuphine HCl [From Nubain] Adverse Reaction (Verified 12/29/16 10:31) AGGRESSIVE OUT BURST Home Medications Medication Instructions Recorded Confirmed Last Taken Type Cyclobenzaprine HCl [Flexeril] 10 mg PO QHS 06/08/15 03/22/17 03/21/17 History Calcitriol [Rocaltrol] 0.25 mcg PO QDAY #30 capsule 09/29/15 03/22/17 03/21/17 Rx Gemfibrozil [Lopid] 600 mg PO BID #60 tablet 09/29/15 03/22/17 03/21/17 Rx Gabapentin [Neurontin] 100 mg PO TID 08/16/16 03/22/17 03/21/17 History diphenhydrAMINE [Benadryl CAP] 50 mg PO BID 08/22/16 03/22/17 03/21/17 History traZODone [Desyrel] 50 mg PO QHS 08/23/16 03/22/17 03/21/17 History Pantoprazole [Protonix TAB] 40 mg PO QDAY 09/14/16 03/22/17 03/21/17 History Pramipexole [Mirapex] 0.5 mg PO QHS 09/14/16 03/22/17 03/21/17 History Benzonatate [Tessalon Perles] 100 mg PO TID 10/25/16 03/22/17 03/22/17 04:00 History Folic Acid 1 mg PO DAILY 10/25/16 03/22/17 03/21/17 History ALBUTEROL Inhaler [ProAir HFA 1 puff IH QID PRN #1 inha 12/15/16 03/22/17 06:00 Rx Inhaler] Zolpidem [Ambien] 5 mg PO QHS PRN 04/10/17 06/15/17 06/14/17 History Hydrocortisone [Cortef TAB] 10 mg PO Q12HR #60 tablet 02/28/17 03/22/17 04:00 Rx Midodrine [Proamatine] 15 mg PO TID #180 tablet 02/28/17 03/22/17 03/22/17 04: 00 Rx Warfarin [Coumadin] 5 mg PO QDAY #30 tablet 02/28/17 03/22/17 03/21/17 Rx oxyCODONE /ACETAMINOPHEN [Percocet 1 tab PO Q6HR PRN #12 tablet 02/28/1703/22/17 04:00 Rx 5/325] Active Medications Cefazolin Sodium (Ancef/Sterile Water 2 Gm/20 Ml) 2 gm in 20 mls @ 80 mls/hr IV PREOP NR PRN Reason: Protocol Stop: 03/29/17 23:00 Sodium Chloride (Nacl 0.9% 1000 Ml) 1,000 mls @ 42 mls/hr IV DIRECT KYRA - Physical exam General appearance: mild distress (back pain) HEENT: EOMI Lungs: Normal air movement Extremities: normal temperature, normal color - Brief post op/procedure progress note Date of procedure: 03/29/17 - Hospital course Hospital course: Had to be cancelled. Pain medication provided for back pain exacerbated by laying in bed all day. - Disposition Condition at discharge: Stable Disposition: DC-01 TO HOME OR SELFCARE Short Stay Discharge Plan Activity: advance as tolerated Weight Bearing Status: Weight Bear as Tolerated Diet: advance as tolerated Follow up with: PRIMARY CARE, [Primary Care Provider] - 7 Days
[2017-03-29] MEDS ORDERED: PERCOCET 5/325 ONE (18:19)
[2017-03-29] MEDS ORDERED: PERCOCET 5/325 PO ONE (18:21)
[2017-03-29] MEDS ORDERED: FLUSH HEPARIN IV ONE ×2 (18:28→18:32)
== END 2017-03-29 18:40 | disposition home or self-care (01) ==
LOC: OPU 12:22
PROVIDERS: ATTEND Radiology Diagnostic Radiology
DX: T82.868A Thrombosis due to vascular prosthetic devices, implants and grafts, initial encounter (principal); J44.9 Chronic obstructive pulmonary disease, unspecified; N18.6 End stage renal disease; K21.9 Gastro-esophageal reflux disease without esophagitis; D64.9 Anemia, unspecified; Z99.2 Dependence on renal dialysis; E66.01 Morbid (severe) obesity due to excess calories; Z68.41 Body mass index [BMI] 40.0-44.9, adult; Z88.8 Allergy status to other drugs, medicaments and biological substances; Z79.899 Other long term (current) drug therapy; Z79.01 Long term (current) use of anticoagulants; Z87.01 Personal history of pneumonia (recurrent); Z53.8 Procedure and treatment not carried out for other reasons; Y83.2 Surgical operation with anastomosis, bypass or graft as the cause of abnormal reaction of the patient, or of later complication, without mention of misadventure at the time of the procedure
CPT/HCPCS: 36415; 80048; 85025; 85610; 85730; 96374; J1200; J1642

== ENCOUNTER 2017-04-05 07:37 | Day surgery (SDC) | payer MEDICARE, OTHER ==
--- NOTE | 2017-04-05 07:59 | Anesthesia Consultation ---
Anesthesia Consult and Med Hx Date of service: 04/05/17 - Airway Anesthetic Teeth Evaluation: Dentures, Edentulous ROM Head & Neck: Inadequate Mental/Hyoid Distance: Inadequate Mallampati Class: Class III Intubation Access Assessment: Possibly Difficult - Pulmonary Exam CTA: Yes - Cardiac Exam Cardiac Exam: RRR - Pre-Operative Health Status ASA Pre-Surgery Classification: ASA4 Proposed Anesthetic Plan: MAC - Pulmonary Hx Asthma: Yes SOB: Yes (Wears O2 at home 2L PRN, with fluid overload) COPD: Yes Hx Pneumonia: Yes Hx Sleep Apnea: Yes (DX SLEEP APNEA, NO CPAP USE) - Cardiovascular System Hx Hypertension: Yes (1992) Hx Heart Murmur: Yes (CAUSES NO PROBLEMS) Hx Peripheral Vascular Disease: Yes (history of PE 2014, 11/2016) - Central Nervous System Hx Neuromuscular Disorder: Yes (neuropathy- has spinal cord stimulator) Hx Seizures: Yes (last sz 10 years ago; no longer taking meds) Hx Back Pain: Yes (CHRONIC/SPINAL CORD STIMULATOR) Hx Psychiatric Problems: Yes - Gastrointestinal Hx Gastroesophageal Reflux Disease: Yes - Endocrine Hx Renal Disease: Yes (CKD, on dialysis MWF, secondary hyperparathyroidism) Hx End Stage Renal Disease: Yes Hx Insulin Dependent Diabetes: No Hx Thyroid Disease: No - Hematic Hx Anemia: Yes - Other Systems Hx Cancer: No Hx Obesity: Yes (morbid)
--- NOTE | 2017-04-05 07:59 | Anesthesia Day of Surgery ---
Anesthesia Day of Surgery - Day of Surgery Patient Examined: Yes Patient H&P Reviewed: Yes Patient is NPO: Yes
[2017-04-05] MEDS ORDERED: DILAUDID ONE (08:43)
[2017-04-05] MEDS ORDERED: VERSED ONE (08:43)
[2017-04-05] MEDS ORDERED: DIPRIVAN 10 MG/ML 1,000 MG/100 ML BOTTLE IV ONE (08:43)
[2017-04-05] MEDS ORDERED: NACL 0.9% 100 ML ONE (08:45)
[2017-04-05] MEDS ORDERED: NEO SYNEPHRINE ONE (08:45)
[2017-04-05] MEDS ORDERED: XYLOCAINE MPF 2% ONE (09:07)
--- NOTE | 2017-04-05 11:43 | Short Stay Summary ---
Short Stay Documentation Date of service: 04/05/17 Narrative H&P: 46-year-old male with thrombosed AV access requiring thrombectomy. - History H&P: obtained from office - Allergies and Medications Current Medications: Allergies chlorhexidine Allergy (Verified 03/29/17 14:59) Rash levetiracetam [From Keppra] Allergy (Verified 05/03/15 10:34) Hives nalbuphine HCl [From Nubain] Adverse Reaction (Verified 12/29/16 10:31) AGGRESSIVE OUT BURST Home Medications Medication Instructions Recorded Confirmed Last Taken Type Cyclobenzaprine HCl [Flexeril] 10 mg PO QHS 06/08/15 04/05/17 04/04/17 History Calcitriol [Rocaltrol] 0.25 mcg PO QDAY #30 capsule 09/29/15 04/05/17 04/05/17 04:30 Rx Gemfibrozil [Lopid] 600 mg PO BID #60 tablet 09/29/15 04/05/17 04/05/17 04:30 Rx Gabapentin [Neurontin] 100 mg PO TID 08/16/16 04/05/17 04/05/17 04:30 History diphenhydrAMINE [Benadryl CAP] 50 mg PO BID 08/22/16 04/05/17 04/04/17 History traZODone [Desyrel] 50 mg PO QHS 08/23/16 04/05/17 04/04/17 History Pantoprazole [Protonix TAB] 40 mg PO QDAY 09/14/16 04/05/17 04/04/17 History Pramipexole [Mirapex] 0.5 mg PO QHS 09/14/16 04/05/17 04/04/17 History Benzonatate [Tessalon Perles] 100 mg PO TID 10/25/16 04/05/17 04/04/17 History Folic Acid 1 mg PO DAILY 10/25/16 04/05/17 04/05/17 04:30 History ALBUTEROL Inhaler [ProAir HFA 1 puff IH QID PRN #1 inha 12/15/16 04/05/17 Rx Inhaler] Zolpidem [Ambien] 5 mg PO QHS PRN 01/15/17 04/05/1704/04/17 History Hydrocortisone [Cortef TAB] 10 mg PO Q12HR #60 tablet 02/28/17 04/05/17 04:30 Rx Warfarin [Coumadin] 5 mg PO QDAY #30 tablet 02/28/17 04/05/17 04/05/17 04:30 Rx oxyCODONE /ACETAMINOPHEN [Percocet 1 tab PO Q6HR PRN #12 tablet 02/28/1704/05/17 04:30 Rx 5/325] oxyCODONE [Roxicodone TAB] 5 mg PO Q6HR PRN #30 tablet 03/29/17 04/05/17 04:30 Rx - Physical exam General appearance: no acute distress Lungs: Normal air movement Extremities: normal temperature, normal color, abnormal (no thrill in the LUE) - Brief post op/procedure progress note Date of procedure: 04/05/17 Pre-op diagnosis: Thrombosed AVG Post-op diagnosis: same Procedure: declot Anesthesia: SUNIL Surgeon: SAVAGE CRISTOBAL Estimated blood loss: minimal Condition: stable - Hospital course Hospital course: Tolerated procedure without issue. Ready for discharge once cleared by aneshtesiology. - Disposition Condition at discharge: Stable Disposition: DC-01 TO HOME OR SELFCARE Short Stay Discharge Plan Activity: advance as tolerated Weight Bearing Status: Weight Bear as Tolerated Diet: renal Wound: keep clean and dry
[2017-04-05] MEDS ORDERED: NACL 0.9% 1000 ML 1,000 ML ONE (12:00)
[2017-04-05] MEDS ORDERED: XYLOCAINE 1%/ EPI 1:100,000 INFILTRATI ONE (12:08)
[2017-04-05] MEDS ORDERED: HEPARIN/NS 5000 UNIT/500ML(CATH LAB) 1,000 ML IR ONE (12:08)
[2017-04-05] MEDS ORDERED: ANCEF/STERILE WATER 2 GM/20 ML 2 GM/20 ML SYRINGE IV ONE (12:08)
[2017-04-05] MEDS ORDERED: WATER FOR INJ (PF) 10 ML ONE (12:37)
[2017-04-05] MEDS ORDERED: CATHFLO ONE (12:37)
[2017-04-05] MEDS ORDERED: ePHEDrine SULFATE ONE (12:57)
[2017-04-05] MEDS ORDERED: ROBINUL ONE (14:00)
--- NOTE | 2017-04-05 14:13 | Operative Report ---
Operative Report Operative Report: EXAM: 1. Ultrasound guided access of the AV graft towards the venous limb. 2. Placement of a 7 Gibraltarian sheath 3. Selection of the right atrium with venography 4. Infusion of 4 mg of TPA throughout the length of the AV graft and central portion of the HERO graft 5. Angioplasty of the AV graft and central portion of the HERO graft with an 7 mm angioplasty balloon 6. Trerotola mechanical thrombectomy of the AV graft with confucianist of flow. 7. Ultrasound-guided access of the AV graft towards the arterial anastomosis 8. Placement of a 6 Gibraltarian sheath 9. Selection of the brachial artery was angiography 10. Devante thrombectomy of the arterial limb 11. Devante thrombectomy of both the arterial anastomosis towards the venous outflow multiple times 12. Angioplasty of the graft with a 7 mm angioplasty balloon INDICATION: THROMBOSED LEFT ARM AV HERO GRAFT WITH END-STAGE RENAL DISEASE. DATE: 04/05/17 MEDICATIONS: Please refer to anesthesiology documentation for complete list of medications and heparin administration. 4 MG OF TPA DELIVERED INTO THE THROMBUS COMPLICATIONS: NONE IMMEDIATE GLOVE PARTS INSPECTOR: SAVAGE CRISTOBAL MD CONTRAST: See laboratory geneticist report for full details PROCEDURE: The procedure was discussed with the patient and the risks, benefits, and alternatives were discussed with the patient. Informed consent was obtained. The patient was transported into the angiography suite in stable condition and placed on the angiographic table. The left arm was assessed under real-time ultrasound which demonstrated a thrombosed left arm AV graft. The patient was prepped and draped in a sterile fashion. Lidocaine was used to anesthetize the skin. Under ultrasound guidance, the AV graft was punctured with the needle pointing towards the venous limb. 0.018 inch wire was advanced through the needle and this was exchanged for a transitional dilator. Wire was exchanged for a 0.035 inch wire. The dilator was exchanged for a 7 Gibraltarian short sheath. Angled catheter was advanced over the wire and the wire was advanced into the inferior vena cava under fluoroscopic guidance. Then the wire was removed and the Angled catheter was used to perform a pullback venogram. Digital subtraction venography was performed in the right atrium immediately outside of the hero graft vein which demonstrated flow into the right atrium, but the hero graft itself was occluded. 4 mg of TPA were infused through the length of the clot to the sheath as the arterial anastomosis was manually compressed. Angled catheter and Ibarra wire were negotiated into the inferior vena cava. Catheter was exchanged for an 7 mm x 6 cm balloon and the HERO graft and AVG was sequentially venoplasty. Trerotola thrombectomy device was used multiple times to the venous limb. Trerotola device was then removed. The devante balloon was used to sweep from the sheath to the central veins. The arm was then punctured towards the arterial anastomosis under ultrasound guidance. 0.018 inch wire was advanced through the needle and exchanged for transitional dilator. The inner dilator and wire were removed and a 0.035 inch Ibarra wire was advanced to the transitional dilator. The dilator was exchanged for 6 [place]tarian short sheath. The angled catheter was advanced over the 0.035 wire and the wire was advanced into the [place] brachial artery in a retrograde fashion. Digital subtraction angiography was performed demonstrating patency of the brachial artery proximal and distal to the anastomosis. Devante catheter was inflated and use to sweep the anastomosis multiple times, pulling the plug towards the venous limb. Devante catheter was exchanged for the angled catheter and digital subtraction angiography was performed demonstrating no significant flow through the graft. Devante catheter was exchanged for the catheter and used to perform thrombectomy at both the arterial limb and then the venous limb. Digital subtraction angiography was performed to the venous sheath demonstrating some moderate nonflow limiting thrombus within the graft, which now had a gentle thrill. Angioplasty was performed of the AV graft multiple times. Digital subtraction angiography demonstrated clearance of all thrombus from the AVG and HERO graft. The anastamosis was patent. The brachial artery proximal and distal to the anastomosis was patent. All the wires were removed. 3-0 Vicryl sutures were used to close the fistula access sites. Dermabond was applied. Pressure was held until hemostasis was achieved. The patient was then transferred to the outpatient recovery area. FINDINGS: Please see procedure note for details. IMPRESSION: 1. Successful pharmacomechanical thrombectomy of the thrombosed left upper extremity HERO AV graft. 2. Successful venoplasty of the central venous portion of the graft (HERO graft ), AVG graft and arterial anastamosis.
[2017-04-05] MEDS ORDERED: BENADRYL ONE (14:34)
[2017-04-05] MEDS ORDERED: HEPARIN 10,000 UNITS/10 ML ONE (14:34)
[2017-04-05] MEDS ORDERED: ZOFRAN ONE (14:35)
[2017-04-05 15:18] VITALS: BP 104/39
== END 2017-04-05 16:00 | disposition home or self-care (01) ==
LOC: OPU 07:37
PROVIDERS: ATTEND Radiology Diagnostic Radiology
DX: T82.868A Thrombosis due to vascular prosthetic devices, implants and grafts, initial encounter (principal); D64.9 Anemia, unspecified; F32.9 Major depressive disorder, single episode, unspecified; J44.9 Chronic obstructive pulmonary disease, unspecified; I12.0 Hypertensive chronic kidney disease with stage 5 chronic kidney disease or end stage renal disease; N18.6 End stage renal disease; K21.9 Gastro-esophageal reflux disease without esophagitis; E03.9 Hypothyroidism, unspecified; M19.90 Unspecified osteoarthritis, unspecified site; E66.01 Morbid (severe) obesity due to excess calories; Z68.41 Body mass index [BMI] 40.0-44.9, adult; Z88.8 Allergy status to other drugs, medicaments and biological substances; Z88.5 Allergy status to narcotic agent; Z91.09 Other allergy status, other than to drugs and biological substances; Z99.2 Dependence on renal dialysis; Z98.890 Other specified postprocedural states; Z98.1 Arthrodesis status; Z87.01 Personal history of pneumonia (recurrent); Z90.5 Acquired absence of kidney; Z79.01 Long term (current) use of anticoagulants; Z79.899 Other long term (current) drug therapy; Y83.2 Surgical operation with anastomosis, bypass or graft as the cause of abnormal reaction of the patient, or of later complication, without mention of misadventure at the time of the procedure
CPT/HCPCS: 36415; 36905; 76937; 84132; C1725; C1751; C1757; C1769; C1894; J0690; J1170; J1200; J1644; J2250; J2370; J2405; J2704; J2997; J7030; Q9967